=== PATIENT | female | born 1980 | race Caucasian/White ===

== ENCOUNTER 2018-12-22 20:49 | Inpatient (IN) | payer BC, OTHER ==
[~2018-12-22] VITALS: Ht 157.5 cm; Wt 90.0 kg
[2018-12-22] MEDS ORDERED: SING10TA32 PO (20:57)
[2018-12-22] MEDS ORDERED: HYDR50TA70 PO (20:57)
[2018-12-22] MEDS ORDERED: NS 1,000 ML IV ONE (22:00)
[2018-12-22 22:01] LABS: AMPHETAMINES LEVEL URINE NEGATIVE (NEGATIVE); BARBITURATES URINE NEGATIVE (NEGATIVE); BENZODIAZEPINES URINE NEGATIVE (NEGATIVE); CANNABINOIDS URINE NEGATIVE (NEGATIVE); COCAINE METABOLITE URINE NEGATIVE (NEGATIVE); METHADONE URINE NEGATIVE (NEGATIVE); OPIATES URINE NEGATIVE (NEGATIVE); PHENCYCLIDINE URINE NEGATIVE (NEGATIVE)
[2018-12-22 22:05] LABS: BASO # 0.1 10^3/uL (0.0-0.2); BASO % 0.5 % (0.0-1.0); EOS # 0.7 10^3/uL (0.0-0.50); EOS % 4.4 % (0.0-3.0); HEMOGLOBIN 13.8 g/dl (12.0-15.5); LYMPH # 3.8 10^3/uL (1.5-4.5); LYMPH % 25.5 % (24.0-44.0); MEAN CORPUSCULAR HEMOGLOBIN 29.9 pg (27.0-33.0); MEAN CORPUSCULAR HGB CONC 33.7 g/dl (32.0-36.5); MEAN CORPUSCULAR VOLUME 88.9 fl (80.0-96.0); MONO # 0.7 10^3/uL (0.0-0.8); MONO % 4.5 % (0.0-5.0); NEUTROPHILS # 9.6 10^3/uL (1.8-7.7); NEUTROPHILS % 64.4 % (36.0-66.0); PLATELET COUNT, AUTOMATED 406 10^3/uL (150-450); RED BLOOD COUNT 4.61 10^6/uL (4.00-5.40); WHITE BLOOD COUNT 14.9 10^3/uL (4.0-10.0)
[2018-12-22 22:31] LABS: HCG, SERUM QUALITATIVE NEGATIVE (NEGATIVE)
[2018-12-22 22:43] LABS: OSMOLALITY SERUM 287 MOSM/KG (275-295)
[2018-12-22 22:44] LABS: ACETAMINOPHEN LEVEL < 2.0 UG/ML (10.0-30.0); ALBUMIN 3.9 GM/DL (3.2-5.2); ALT/SGPT 29 U/L (12-78); BILIRUBIN,DIRECT < 0.1 MG/DL (0.0-0.2); BILIRUBIN,TOTAL 0.2 MG/DL (0.2-1.0); BLOOD UREA NITROGEN 9 MG/DL (7-18); CALCIUM LEVEL 8.8 MG/DL (8.5-10.1); CARBON DIOXIDE LEVEL 25 MEQ/L (21-32); CHLORIDE LEVEL 107 MEQ/L (98-107); CPK CREATINE PHOSPHOKINASE 53 U/L (26-192); ETHYL ALCOHOL (ETHANOL) < 0.003 % (0.000-0.010); GLOMERULAR FILTRATION RATE > 60.0 (>60); GLUCOSE, FASTING 140 MG/DL (70-100); POTASSIUM SERUM 3.6 MEQ/L (3.5-5.1); SODIUM LEVEL 140 MEQ/L (136-145); TOTAL PROTEIN 7.5 GM/DL (6.4-8.2)
--- NOTE | 2018-12-23 01:45 | ECGEPIP ---
Stationary ECG Study [facility] - ED Test Date: 2018-12-22 Pat Name: LIBAN PERDOMO Department: Room: - Gender: F Commissions Manager: trung : 1980 Requested By: Italo Glaser Order Number: [id number] Reading MD: Italo Solares Measurements Intervals [place] Rate: 103 P: 43 ME: 143 QRS: 32 QRSD: 90 T: 14 QT: 335 QTc: 441 Interpretive Statements SINUS TACHYCARDIA NO PRIORS FOR COMPARISON Electronically Signed On 12-23-2018 1:45:25 EDT by Italo Solares
--- NOTE | 2018-12-23 08:17 | REP ---
Portable chest: Single view. History: Drug overdose. Comparison study: No comparison study. Findings: EKG monitoring electrodes overlie the chest. Lungs are well inflated and clear. Pleural angles are sharp. Cardiomediastinal silhouette is unremarkable. Pulmonary vasculature is not increased. No bony abnormalities appreciated. Impression: Negative portable chest x-ray. Electronically Signed by Ras Bueno MD 12/23/2018 08:08 A
[2018-12-23] MEDS ORDERED: MONTELUKAST 10 MG TAB PO SCH (09:00)
[2018-12-23] MEDS ORDERED: HYDR-3363 PO (09:11)
[2018-12-23] MEDS ORDERED: PROAAER10 INH (09:11)
[2018-12-23] MEDS ORDERED: ALBUTEROL 90 MCG/ACT 8GM HFA INHALER INH SCH (14:30)
[2018-12-23] MEDS ORDERED: MOM 30ML SUSPENSION UDC PO PRN (14:30)
[2018-12-23] MEDS ORDERED: ACETAMINOPHEN TAB 650MG DOSE (2X325MG) PO PRN (14:30)
[2018-12-23] MEDS ORDERED: MAALOX 30 ML SUSP *UDC PO PRN (14:30)
[2018-12-23 15:54] VITALS: BP 132/82
[2018-12-23] MEDS ORDERED: hydrOXYzine 50 MG TAB PO SCH (21:00)
[2018-12-23] MEDS: MONTELUKAST 10 MG TAB PO SCH (21:36)
[2018-12-24 06:39] VITALS: BP 111/60
[2018-12-24 08:56] VITALS: BP 111/60
[2018-12-24] MEDS: NICOTINE 14 MG/24 HR TRANSDERMAL TD SCH (09:01)
--- NOTE | 2018-12-24 11:59 | HPEPDOC ---
General Date of Admission Dec 23, 2018 at 14:26 Chief Complaint The patient is a 38-year-old female who presented to the ER after she attempted to harm herself by steaming handful of hydroxyzine. History of Present Illness Patient is 38-year-old female with a PMHx of seasonal allergies and in somnia who presented to the emergency room after she attempted to harm herself by consuming a handful of hydroxyzine at an attempt of overdose. Hospitalist service was called for medical management / screening. Currently patient denies any headache, nausea, vomiting, abdominal pain, constipation, diarrhea or discomfort with urination. She denies any chest pain, shortness of breath, palpitations or cough. Patient reports that she has not experienced fever or chills in the last 2 weeks. Patient reports her weight has been relatively consistent and reports her appetite is normal. Home Medications Scheduled Hydroxyzine HCl (Hydroxyzine HCl) 25 Mg Tablet, 50 MG PO QHS for sleeping, (Reported) Montelukast Sodium (Singulair) 10 Mg Tablet, 10 MG PO QHS for allergies, (Reported) Scheduled PRN Albuterol Sulfate (Proair Hfa) 8.5 Gm Hfa.aer.ad, 2 PUFF INH Q6H PRN for SHORTNESS OF BREATH, (Reported) Allergies Coded Allergies: No Known Allergies (Unverified , 12/22/18) Past Medical History Medical History Seasonal allergies, Insomnia Surgical History 2 Dilation and curettage Tube ligation Cholecystectomy Tube placed and tympanic membrane at right ear 2 Family History - Mother and father without any reported medical history Social History - Denies the use of illicit drugs; smoker of 2024 years at less than 0.25 PPD; drinks alcohol proximally 3-4 beers / mixed drinks per week - Denies recent travel or sick contacts - Lives with family in [place] - 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; 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 [employer] Review of Systems Other systems 10 point review systems complete, all negative otherwise stated in HPI Vital Signs - Vitals: BP 11/60, HR 67, RR 16, Sat 95%RA, Temp 99.9F - General: Lying in bed, No acute distress, Speaking in full sentences, AAOx3 - HEENT: NC, AT, PERRLA, EOMI - CVS: RRR, +S1S2, - Murmurs / rubs / gallops - Lungs: Fair air entry bilaterally, Clear to auscultation - Abdomen: Soft, Non-distended, Non-tender - Extremities: No lower extremity edema, No calf tenderness - Neuro: No focal motor or sensory deficit - Skin: No visible rashes Laboratory Data Microbiology Microbiology 12/22/18 Urine Culture - Final, Complete Plan / VTE VTE Prophylaxis Ordered?: Yes Plan Plan Suicidal attempt after having a stressor event - Currently being managed by psychiatry Seasonal allergies - c/w Singulair Insomnia - Patient has been resumed on hydroxyzine by psychiatry Active smoker - Advised smoking cessation - c/w Nicotine patch DVT prophylaxis - c/w early ambulation Does not appear to have any acute medical issues that require urgent attention; Please reconsult as needed Female nursing staff was present during history and physical exam BRENDA HOLM MD Dec 24, 2018 11:59
--- NOTE | 2018-12-24 13:21 | MHHPEPDOC ---
General Date Of Admission: Dec 23, 2018 Legal Status: 9.39 Chief Complaint "I took pills to kill myself." History of Present Illness HISTORY OF THE PRESENT ILLNESS: Patient is a 38 -year-old , female, with no previous psychiatric history who presented to ED after driving herself stating she took a "few handfuls" or hydroxyzine 50mg but believes she only really swallowed 2 pills then vomited as a suicide attempt due to feeling depressed and overwhelmed since her and she after he told her he wanted a divorce a few days ago which she doesn't want per the ED. Pt stated she regretted the OD in the ED but at the time she was feeling suicidal. Stated in the ED that she had been staying with friends since her told her he wanted a divorce and her kids had been staying with her parents but on the day of OD she picked them up and brought them home to her which she stated caused her to have a "breakdown" and OD as a suicide attempt. She denied SI/HI, hallucinations, delusions in the ED. Psychiatric Review of Systems Depression (2 or more weeks): depressed mood, feelings of worthlesness, diffi culty concentrating, suicidal thoughts [place] (4 or more days of): denies Psychosis: denies PTSD: denies Anxiety: situational anxiety, stressor related anxiety Anxiety/ 6 months or more of: difficulty concentrating Past Psychiatric History Previous Psychiatric Diagnosis: denies Previous Psychiatric Admissions: denies Suicide Attempts: OD on 2 hydroxyzine 50mg and then vomited this admission, only time in Hx Psychiatric Follow-up: denies Psychiatric medications: denies Past Medical History Medical Problems denies Head Injury: No Seizures: No Hospitalizations: No Surgeries: No Family Medical/Psychiatric HX Medical Problems noncontributory Psychiatric Disorders: No Addiction: No Suicide Attemps/Completions: No Addiction History denies Social History Childhood: born and raised [facility]. 2 parent home, 2 younger brothers, good childhood, close family Abuse/Trauma:no Current Living Situation: has been staying with friends after asked for divorce. is in their home. 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 [employer] Social Support: parents, friends Legal: denies Marital: but just asked for divorce a few days ago, 2 daughters 12, 13 Mental Status Examination General Appearance: well groomed, appears stated age, hospital scubs/clothing Build: overweight Demeanor: average Eye Contact: average Activity: average Behavior: cooperative Speech: clear, spontaneous, reg/rate,rhythm,volume Mood: depressed, anxious Mood overwhelmed Affect: appropriate, congruent, anxious Thought Process: logical/linear, intact Thought Content (Delusions): none reported, denies SI, HI, AVH Thought Content (Other): none reported, appropriate Thought Content (Aggressive): none reported Perception (Hallucinations): none reported Perception (Other): none reported Cognition (Impairment of): none reported Cognition(Intelligence Est.): average Oriented: Awake, Alert, Oriented times three Insight: fair Judgment: Fair Psychosis: Denies Diagnoses Unspecified Depression R/O Adjustment D/O with depression and anxiety A-FIB/CHADSVASC A-FIB History Current/History of A-Fib/PAF?: No Current Oral Anticoagulant The: No Treatment Treatment ordered: NONE Reason Anticoagulant not given: Not indicated/Cmrbd6ohil Assessment Pt seen and states she's here b/c "I think I had a nervous breakdown." States she just overwhelmed with everything going on. States her asked for a divorce a few days ago after she cheated on him 5 days ago due to the marriage no doing well and feeling like she wasn't getting enough attention. She states she still wants her marriage to work out and has asked her about them attending marital counseling and he told her no. States she would like counseling for herself once d/c. States she regrets her OD as "it was the lowest I've very been in my life." States she feels better today. States she has a lot still ahead of her to do in the future, her kids/dogs/family which is why she's glad she wasn't successful. Feels this is a learning lesson. States her PCP, Dr. Bond prescribed her the hydroxyzine for insomnia. States she believes she may have taken lexapro in the past but is not sure if it was helpful and agreeable to starting again for mood/anxiety. Recommended benadryl prn anxiety as OD'ed on hydroxyzine. Risks/benefits discussed. Denies SI/HI, hallucinations, delusions. Feels safe here. Initial Treatment Plan 1. Patient was admitted on a 9.39 status. 2. Complete history was obtained. 3. With patients permission, family will be contacted and database will be expanded. 4. Patients medication regimen will be reviewed and changed accordingly. 5. Patient will be provided with protected environment. 6. Patient will be treated with individual, group, and milieu therapies. 7. Patient will receive supportive psych-education. 8. Discharge planning will commence immediately. 9. Outpatient follow-up treatment will be strongly recommended. 10. The initial treatment plan will focus initially on: * Depression. * Risk for suicide. * Substance abuse. 11. lexapro 10mg daily and benadryl 25mg q6hr prn anxiety, d/c hydroxyzine ESTIMATED LENGTH OF STAY: 5-7 DAYS. TIME SPENT COUNSELING AND COORDINATING INITIAL CARE: 60 minutes. Vital Signs Vital Signs Date Time Temp Pulse Resp B/P (MAP) Pulse Ox O2 Delivery O2 Flow Rate FiO2 12/24/18 08:56 99.9 67 16 111/60 95 12/24/18 08:56 Room Air Medications Scheduled Hydroxyzine HCl (Hydroxyzine HCl) 25 Mg Tablet, 50 MG PO QHS for sleeping, (Reported) Montelukast Sodium (Singulair) 10 Mg Tablet, 10 MG PO QHS for allergies, (Reported) Scheduled PRN Albuterol Sulfate (Proair Hfa) 8.5 Gm Hfa.aer.ad, 2 PUFF INH Q6H PRN for SHORTNESS OF BREATH, (Reported) Allergies Coded Allergies: No Known Allergies (Unverified , 12/22/18) PORSCHE JAMIL DO Dec 24, 2018 13:21
[2018-12-24] MEDS ORDERED: ESCITALOPRAM OXALATE 10 MG TAB (LEXAPRO) PO ONE (13:30)
[2018-12-24] MEDS ORDERED: diphenhydrAMINE 25 MG CAP PO PRN (13:30)
[2018-12-24 18:00] VITALS: BP 134/83
[2018-12-24] MEDS: traZODone 50 MG TAB PO PRN (21:40)
[2018-12-24] MEDS: MONTELUKAST 10 MG TAB PO SCH (21:40)
[2018-12-25 07:12] VITALS: BP 116/58
[2018-12-25] MEDS: ESCITALOPRAM OXALATE 10 MG TAB (LEXAPRO) PO SCH (09:03)
[2018-12-25] MEDS: NICOTINE 14 MG/24 HR TRANSDERMAL TD SCH (09:03)
--- NOTE | 2018-12-25 11:08 | MHIPNPDOC ---
[facility] Progress Note Progress Note DATE OF SERVICE: 12/25/18 HISTORY: Patient is a 38 -year-old , female, with no previous psychiatric history who presented to ED after driving herself stating she took a "few handfuls" or hydroxyzine 50mg but believes she only really swallowed 2 pills then vomited as a suicide attempt due to feeling depressed and overwhelmed since her and she after he told her he wanted a divorce a few days ago which she doesn't want per the ED. Pt stated she regretted the OD in the ED but at the time she was feeling suicidal. Stated in the ED that she had been staying with friends since her told her he wanted a divorce and her kids had been staying with her parents but on the day of OD she picked them up and brought them home to her which she stated caused her to have a "breakdown" and OD as a suicide attempt. She denied SI/HI, hallucinations, delusions in the ED. VITAL SIGNS: See below. NEW TEST RESULTS: See below. CURRENT MEDICATIONS: See below. MENTAL STATUS EXAMINATION: General Appearance: well groomed, appears stated age, hospital scubs/clothing Build: overweight Demeanor: average Eye Contact: average Activity: average Behavior: cooperative Speech: clear, spontaneous, reg/rate,rhythm,volume Mood: less depressed, anxious Mood "better" Affect: appropriate, congruent, less anxious Thought Process: logical/linear, intact Thought Content (Delusions): none reported, denies SI, HI, AVH Thought Content (Other): none reported, appropriate Thought Content (Aggressive): none reported Perception (Hallucinations): none reported Perception (Other): none reported Cognition (Impairment of): none reported Cognition(Intelligence Est.): average Oriented: Awake, Alert, Oriented times three Insight: fair Judgment: Fair Psychosis: Denies DIAGNOSES: Unspecified Depression R/O Adjustment D/O with depression and anxiety ASSESSMENT:Pt seen and states doing "ok" today and slept well last night. Is rested today. States she's tolerating her medication well and feels it's beneficial. Is attending groups and socializing in the milieu which she finds helpful and enjoys. Denies SI/HI, hallucinations, delusions. Feels safe here. MANAGEMENT PLAN: continue plan. Medications: lexapro 10mg daily benadryl 25mg q6hr prn anxiety trazodone 50mg qhs prn insomnia TIME SPENT: 30 minutes. Vital Signs Vital Signs Date Time Temp Pulse Resp B/P (MAP) Pulse Ox O2 Delivery O2 Flow Rate FiO2 12/25/18 07:12 98.2 71 16 116/58 (77) 12/24/18 08:56 95 12/24/18 08:56 Room Air Current Medications Current Medications Acetaminophen (Tylenol Tab) 650 mg Q6HP PRN PO PAIN; Start 12/23/18 at 14:30 Al Hydrox/Mg Hydrox/Simethicone (Mylanta) 30 ml Q4HP PRN PO INDIGESTION; Start 12/23/18 at 14:30 Albuterol Sulfate (Proventil, Ventolin Hfa) 2 puff Q6HP INH ; Start 12/23/18 at 14:30 Diphenhydramine HCl (Benadryl) 25 mg Q6HP PRN PO ANXIETY/AGITATION; Start 12/24/18 at 13:30 Escitalopram Oxalate (Lexapro) 10 mg DAILY PO Last administered on 12/25/18at 09:03; Start 12/25/18 at 09:00 Home Med (Med Rec Complete!) ASDIRECTED XX ; Start 12/23/18 at 09:15; Stop 12/23/18 at 09:15; Status DC Hydroxyzine HCl (Atarax) 50 mg QHS PO Last administered on 12/23/18at 21:36; Start 12/23/18 at 21:00; Stop 12/24/18 at 13:26; Status DC Magnesium Hydroxide (Milk Of Magnesia) 30 ml DAILYPRN PRN PO CONSTIPATION; Start 12/23/18 at 14:30 Montelukast Sodium (Singulair) 10 mg DAILY PO Last administered on 12/23/18at 08:22; Start 12/23/18 at 09:00; Stop 12/23/18 at 15:54; Status DC Montelukast Sodium (Singulair) 10 mg QHS PO Last administered on 12/24/18at 21:40; Start 12/23/18 at 21:00 Nicotine (Nicoderm Cq 14mg) 1 patch DAILY TD Last administered on 12/25/18at 09:03; Start 12/24/18 at 09:00 Trazodone HCl (Desyrel) 50 mg QHSP PRN PO INSOMNIA Last administered on 12/02 12/19at 21:40; Start 12/24/18 at 13:30 Allergies Coded Allergies: No Known Allergies (Unverified , 12/22/18) PORSCHE JAMIL DO Dec 25, 2018 11:08 am
[2018-12-25 18:05] VITALS: BP 106/60
[2018-12-25] MEDS: MONTELUKAST 10 MG TAB PO SCH (21:19)
[2018-12-25] MEDS: traZODone 50 MG TAB PO PRN (22:42)
[2018-12-26 06:22] VITALS: BP 124/72
[2018-12-26] MEDS: ESCITALOPRAM OXALATE 10 MG TAB (LEXAPRO) PO SCH (08:51)
[2018-12-26] MEDS: NICOTINE 14 MG/24 HR TRANSDERMAL TD SCH (08:52)
--- NOTE | 2018-12-26 09:17 | MHDSPDOC ---
[facility] Discharge Summary Discharge Summary DATE OF ADMISSION: Dec 23, 2018 at 2:26 pm DATE OF DISCHARGE: December 26, 2018 DISCHARGE DIAGNOSES: Unspecified Depression R/O Adjustment D/O with depression and anxiety REASON FOR ADMISSION: Patient is a 38 -year-old , female, with no previous psychiatric history who presented to ED after driving herself stating she took a "few handfuls" or hydroxyzine 50mg but believes she only really swallowed 2 pills then vomited as a suicide attempt due to feeling depressed and overwhelmed since her and she after he told her he wanted a divorce a few days ago which she doesn't want per the ED. Pt stated she regretted the OD in the ED but at the time she was feeling suicidal. Stated in the ED that she had been staying with friends since her told her he wanted a divorce and her kids had been staying with her parents but on the day of OD she picked them up and brought them home to her which she stated caused her to have a "breakdown" and OD as a suicide attempt. She denied SI/HI, hallucinations, delusions in the ED. CONSULTANTS INVOLVED: none TREATMENT AND PROGRESS ON THE UNIT : Pt was admitted to [facility], seen for psychiatric assessment and started on lexapro 10mg daily for mood and anxiety. She was provided benadryl 25mg q6hr prn anxiety and trazodone 50mg qhs prn in somnia. Pt found her medications beneficial and tolerated them well. She attended groups daily during her stay. Her symptoms improved with treatment. On day of discharge she denied depression, anxiety, insomnia, SI/HI, hallucinations, delusions. She was discharged home after family meeting with her friend with follow-up at [facility]. She felt safe for discharge. DISCHARGE ASSESSMENT: Pt seen and states doing "good" today and slept well last night. States she's looking forward to going home today. States she's tolerating her medication well and feels it's beneficial. Is attending groups and socializing in the milieu which she finds helpful and enjoys. Denies depression, anxiety, insomnia, SI/HI, hallucinations, delusions. Feels safe to be discharged home. MENTAL STATUS EXAMINATION ON DISCHARGE: General Appearance: well groomed, appears stated age, hospital scrubs/clothing Build: overweight Demeanor: average Eye Contact: average Activity: average Behavior: cooperative Speech: clear, spontaneous, reg/rate,rhythm,volume Mood: euthymic, full "good" Affect: appropriate, congruent, euthymic, full Thought Process: logical/linear, intact Thought Content (Delusions): none reported, denies SI, HI, AVH Thought Content (Other): none reported, appropriate Thought Content (Aggressive): none reported Perception (Hallucinations): none reported Perception (Other): none reported Cognition (Impairment of): none reported Cognition(Intelligence Est.): average Oriented: Awake, Alert, Oriented times three Insight: good Judgment: good Psychosis: Denies MEDICATIONS ON DISCHARGE: lexapro 10mg daily benadryl 25mg q6hr prn anxiety trazodone 50mg qhs prn insomnia PLAN/FOLLOWUP ARRANGEMENTS: D/c home with follow-up at [facility]. The amount of time spent in the coordination of care for this patient was approximately 30 minutes. Vital Signs/I&Os Vital Signs Date Time Temp Pulse Resp B/P (MAP) Pulse Ox O2 Delivery O2 Flow Rate FiO2 12/26/18 06:22 99.7 63 18 124/72 (89) 12/24/18 08:56 95 12/24/18 08:56 Room Air Laboratory Data Microbiology Microbiology 12/22/18 Urine Culture - Final, Complete Medications Scheduled Hydroxyzine HCl (Hydroxyzine HCl) 25 Mg Tablet, 50 MG PO QHS for sleeping, (Reported) Montelukast Sodium (Singulair) 10 Mg Tablet, 10 MG PO QHS for allergies, (Reported) Scheduled PRN Albuterol Sulfate (Proair Hfa) 8.5 Gm Hfa.aer.ad, 2 PUFF INH Q6H PRN for SHORTNESS OF BREATH, (Reported) Allergies Coded Allergies: No Known Allergies (Unverified , 12/22/18) PORSCHE JAMIL DO Dec 26, 2018 9:17 am
[2018-12-26] MEDS ORDERED: ESCI10TA2 PO (09:19)
[2018-12-26] MEDS ORDERED: TRAZO50TA PO (09:19)
[2018-12-26] MEDS ORDERED: BENA25CA4 PO (09:19)
== END 2018-12-26 10:45 | disposition home or self-care (01) | DRG 754 ==
LOC: M ED 20:49 → M ED INP 12-23 14:26 → M PSY 12-23 15:35
PROVIDERS: ADMIT Psychiatry & Neurology Psychiatry; ATTEND Psychiatry & Neurology Psychiatry
DX: F32.9 Major depressive disorder, single episode, unspecified (principal); F43.21 Adjustment disorder with depressed mood; T43.592A Poisoning by other antipsychotics and neuroleptics, intentional self-harm, initial encounter; Y92.009 Unspecified place in unspecified non-institutional (private) residence as the place of occurrence of the external cause; Z63.5 Disruption of family by separation and divorce

== ENCOUNTER → 2020-10-22 | Outpatient (CLI) | payer BC ==
[~2020-10-22] MED LIST: BENA25CA4 PO; ESCI10TA16 PO; HYDR-3363 PO; HYDR50TA70 PO; PROAAER10 INH; SING10TA32 PO; TRAZ1TAB10 PO
== END ==
LOC: M LABSMTC 08:23
PROVIDERS: ATTEND Anesthesiology
DX: Z01.812 Encounter for preprocedural laboratory examination (principal); Z20.822 Contact with and (suspected) exposure to COVID-19

== ENCOUNTER 2020-10-27 06:04 | Day surgery (SDC) | payer BC ==
[~2020-10-27] VITALS: Ht 157.5 cm; Wt 92.2 kg
[~2020-10-27 06:04] MED LIST changes: +LIDOCAINE 1% MDV 20ML VIAL SQ PRN
--- OUTSIDE RECORDS SUMMARY | 2020-10-27 06:09 | CCD | Continuity of Care Document ---
Author Author Erika KINNEY MD Organization Unknown Address [address] [place] [id number] Phone [phone] Care Team Providers Care Remote Sensing Technician Name Role Phone Macario Bond [phone] Problems Active Problems Provider Date Gynecologic examination Jaelyn Alvarez WHNP Onset: 03/25/20 12 Obesity Jaelyn Alvarez WHNP Onset: 03/25/2012 Social History Type Date Description Comments Sex Unknown Tobacco Use Start: Unknown End: Unknown Former Cigarette Smo ker ETOH Use Occasionally consumes beer Recreational Drug Use Denies Drug Use Tobacco Use Start: Unknown End: Unknown Patient is a former smoker Smoking Status Reviewed: 08/10/20 Patient is a former smoker Allergies, Adverse Reactions, Alerts Description No Known Drug Allergies Medications Active Medications SIG Qnty Indications Ordering Provide r Date Singulair 10mg Tablets Unknown Hydroxyzine HCL 50mg Tablets one by mouth three times a day as needed Unknown 00 Immunizations Description No Information Available Vital Signs Date Vital Result Comment 08/10/2020 9:33am Weight 204.00 lb 03/22/2020 9:06am BP Systolic 134 mmHg BP Diastolic 82 mmHg Height 62 inches 5'2" Weight 213.00 lb BMI (Body Mass Index) 39.0 kg/m2 BSA (Body Surface Area) 1.96 m2 Results Test Acquired Date Facility Test Result H/L Range Note Laboratory test finding 03/22/2020 [facility] TP Reflex HPV ASCUS Normal Normal [address] CT By PCR 03/22/[address] [facility] [address]/NG Please see resul <SEE NOTE> Abnormal 2 TP Reflex HPV ASCUS SEE IMAGE 1 SPECIME N PART A. Cervical, Endocervical, ThinPrep Pap (Elementary Supervisor) CYTOLOGY HX-------- Date of Last Menstrual Period: 03/15/20 Other Information:Previous Normal Pap: 04/05/14 FINAL DIAGNOSIS---- INTERPRETATION: Negative for Intraepithelial Lesion or Malignancy. SPECIMEN ADEQUACY:Satisfactory for evaluation. Endocervical/transformation zone component is absent/insufficient. 2 Please see results/comment Unable to obtain a valid result. quality control tester measures indicate that this specimen contains an inhibitory substance, which prohibits accurate detection of organisms. Recommend submitting a new specimen for testing if clinically indicated. Testing performed by the FDA-approved APTIMA COMBO 2 method. Procedures Description No Information Available Medical Devices Description No Information Available Encounters Type Date Location Provider Dx Diagnosis Office Visit 03/22/2020 9:15a [facility] newspaper carrier Starr Kinney MD Z0 1.419 Encntr for dairy frozen manager exam (general) (routine) w/o abn findings Z12.4 Encounter for screening for malignant neoplasm of cervix Z12.39 Encounter for oth screening for malignant neoplasm of breast Z72.51 High risk heterosexual behav ior Z68.39 Body mass index (BMI) 39.0-3 9.9, adult Assessments Date Code Description Provider 03/22/2020 Z01.419 Encounter for gyneco logical examination (general) (routine) without abnormal findings Starr Kinney MD 03/22/2020 Z12.4 Encounter for screening for tita gnant neoplasm of cervix Starr Kinney MD 03/22/2020 Z12.39 Encounter for other screening for malignant neoplasm of breast Starr Kinney MD 03/22/2020 Z72.51 High risk heterosexual behavior Starr Kinney MD 03/22/2020 Z68.39 Body mass index (BMI) 39.0-39.9, adult Starr Kinney MD Plan of Treatment Future Appointment(s):* 09/29/2020 10:00 am - Starr Kinney MD at [facility] newspaper carrier * 03/31/2021 9:15 am - Starr Kinney MD at [facility] newspaper carrier Functional Status Description No Information Available Mental Status Description No Information Available Referrals Description No Information Available
--- OUTSIDE RECORDS SUMMARY | 2020-10-27 06:10 | CCD ---
Author Author [facility] Organization [facility] Address Unknown Phone Unavailable Care Team Providers Care Middleware Developer Name Role Phone of Karol, Medicine Occupation Unavailable Unavailable PARSHALL, A MARK SOTO Unavailable Unavailable PARSHALL, A MARK SOTO Unavailable Unavailable PARSHALL, A MARK SOTO Unavailable Unavailable PARSHALL, A MARK SOTO Unavailable Unavailable PARSHALL, A MARK SOTO Unavailable Unavailable PARSHALL, A MARK SOTO Unavailable Unavailable PARSHALL, A MARK SOTO Unavailable Unavailable PARSHALL, A MARK SOTO Unavailable Unavailable PARSHALL, A MARK SOTO Unavailable Unavailable PARSHALL, A MARK SOTO Unavailable Unavailable PARSHALL, A MARK SOTO Unavailable Unavailable PARSHALL, A MARK SOTO Unavailable Unavailable PARSHALL, A MARK SOTO Unavailable Unavailable PARSHALL, A MARK SOTO Unavailable Unavailable PARSHALL, A MARK SOTO Unavailable Unavailable PARSHALL, A MARK SOTO Unavailable Unavailable PARSHALL, A MARK SOTO Unavailable Unavailable PARSHALL, A MARK SOTO Unavailable Unavailable PARSHALL, A MARK SOTO Unavailable Unavailable PARSHALL, A MARK SOTO Unavailable Unavailable PARSHALL, A MARK SOTO Unavailable Unavailable PARSHALL, A MARK SOTO Unavailable Unavailable PARSHALL, A MARK SOTO Unavailable Unavailable PARSHALL, A MD Unavailable Unavailable PARSHALL, Maricruz FLORES MD Unavailable Unavailable PARSHALL, Maricruz FLORES MD Unavailable Unavailable PARSHALL, Maricruz FLORES MD Unavailable Unavailable PARSHALL, Maricruz FLORES MD Unavailable Unavailable Shambo, Macario Chairez MD Unavailable Unavailable Shambo, Macario Chairez MD Unavailable Unavailable Shambo, Macario Chairez MD Unavailable Unavailable Shambo, Macario Chairez MD Unavailable Unavailable Shambo, Macario Chairez MD Unavailable Unavailable Shambo, Macario Chairez MD Unavailable Unavailable Shambo, Macario Chairez MD Unavailable Unavailable Shambo, Macario Chairez MD Unavailable Unavailable Shambo, Macario Chairez MD Unavailable Unavailable Shambo, Macario Chairez MD Unavailable Unavailable Shambo, Macario Chairez MD Unavailable Unavailable Shambo, Macario Chairez MD Unavailable Unavailable Shambo, Macario Chairez MD Unavailable Unavailable Shambo, Macario Chairez MD Unavailable Unavailable Shambo, Macario Chairez MD Unavailable Unavailable Shambo, Macario Chairez MD Unavailable Unavailable Shambo, Macario Chairez MD Unavailable Unavailable Shambo, Macario Chairez MD Unavailable Unavailable Shambo, Macario Chairez MD Unavailable Unavailable Shambo, Macario Chairez MD Unavailable Unavailable Shambo, Macario Chairez MD Unavailable Unavailable Shambo, Macario Chairez MD Unavailable Unavailable Shambo, Macario Chairez MD Unavailable Unavailable Shambo, Macario Chairez MD Unavailable Unavailable Shambo, Macario Chairez MD Unavailable Unavailable Shambo, Macario Chairez MD Unavailable Unavailable Shambo, Macario Chairez MD Unavailable Unavailable Shambo, Macario Chairez MD Unavailable Unavailable Shambo, Macario Chairez MD Unavailable Unavailable Shambo, Macario Chairez MD Unavailable Unavailable Shambo, Macario Chairez MD Unavailable Unavailable Shambo, Macario Chairez MD Unavailable Unavailable Shambo, Macario Chairez MD Unavailable Unavailable Shambo, Macario Chairez MD Unavailable Unavailable Shambo, Macario Chairez MD Unavailable Unavailable Shambo, Macario Chairez MD Unavailable Unavailable Shambo, Macario Chairez MD Unavailable Unavailable Shambo, Macario Chairez MD Unavailable Unavailable Shambo, Macario Chairez MD Unavailable Unavailable Shambo, Macario Chairez MD Unavailable Unavailable Shambo, Macario Chairez MD Unavailable Unavailable Shambo, Macario Chairez MD Unavailable Unavailable Shambo, Macario Chairez MD Unavailable Unavailable Shambo, Macario Chairez MD Unavailable Unavailable Shambo, Macario Chairez MD Unavailable Unavailable Shambo, Macario Chairez MD Unavailable Unavailable Shambo, Macario Chairez MD Unavailable Unavailable Shambo, Macario Chairez MD Unavailable Unavailable Shambo, Macario Chairez MD Unavailable Unavailable Shambo, Macario Chairez MD Unavailable Unavailable Shambo, Macario Chairez MD Unavailable Unavailable Shambo, Macario Chairez MD Unavailable Unavailable Shambo, Macario Chairez MD Unavailable Unavailable Shambo, Macario Chairez MD Unavailable Unavailable Shambo, Macario Chairez MD Unavailable Unavailable Shambo, Macario Chairez MD Unavailable Unavailable Shambo, Macario Chairez MD Unavailable Unavailable Shambo, Macario Chairez MD Unavailable Unavailable Shambo, Macario Chairez MD Unavailable Unavailable Shambo, Macario Chairez MD Unavailable Unavailable Shambo, Macario Chairez MD Unavailable Unavailable Shambo, Macario Chairez MD Unavailable Unavailable Shambo, Macario Chairez MD Unavailable Unavailable Shambo, Macario Chairez MD Unavailable Unavailable Lewis, Rico PA Unavailable Unavailable Lewis, Rico PA Unavailable Unavailable Lewis, Rico PA Unavailable Unavailable Lewis, Rico PA Unavailable Unavailable Lewis, Rico PA Unavailable Unavailable Lewis, Rico PA Unavailable Unavailable Lewis, Rico PA Unavailable Unavailable Lewis, Rico PA Unavailable Unavailable Lewis, Irco PA Unavailable Unavailable Lewis, Rico PA Unavailable Unavailable Lewis, Rico PA Unavailable Unavailable Lewis, Rico PA Unavailable Unavailable Oscar De La Rosa MD Unavailable Unavailable Tad KINNEY MD Unavailable Unavailable Tad KINNEY MD Unavailable Unavailable Tad KINNEY MD Unavailable Unavailable Tad KINNEY MD Unavailable Unavailable Tad KINNEY MD Unavailable Unavailable Tad KINNEY MD Unavailable Unavailable Tad IKNNEY MD Unavailable Unavailable Tad KINNEY MD Unavailable Unavailable Tad KINNEY MD Unavailable Unavailable Tad KINNEY MD Unavailable Unavailable Tad KINNEY MD Unavailable Unavailable Tad KINNEY MD Unavailable Unavailable Tad KINNEY MD Unavailable Unavailable Tad KINNEY MD Unavailable Unavailable Tad KINNEY MD Unavailable Unavailable Tad KINNEY MD Unavailable Unavailable Tad KINNEY MD Unavailable Unavailable Tad KINNEY MD Unavailable Unavailable Tad KINNEY MD Unavailable Unavailable Tad KINNEY MD Unavailable Unavailable Tad KINNEY MD Unavailable Unavailable Tad KINNEY MD Unavailable Unavailable Tad KINNEY MD Unavailable Unavailable Tad KINNEY MD Unavailable Unavailable Tad KINNEY MD Unavailable Unavailable Tad KINNEYCI MD Unavailable Unavailable KINNEY, Tad ARANA MD Unavailable Unavailable KINNEY, L SUMIT SOTO Unavailable Unavailable KINNEY, L SUIMT SOTO Unavailable Unavailable KINNEY, L SUMIT SOTO Unavailable Unavailable KINNEY, L SUMIT SOTO Unavailable Unavailable KINNEY, L SUMIT SOTO Unavailable Unavailable KINNEY, L SUMIT SOTO Unavailable Unavailable KINNEY, L SUMIT SOTO Unavailable Unavailable KINNEY, L SUMIT SOTO Unavailable Unavailable KINNEY, L SUMIT SOTO Unavailable Unavailable KINNEY, L SUMIT SOTO Unavailable Unavailable KINNEY, L SUMIT SOTO Unavailable Unavailable KINNEY, L SUMIT SOTO Unavailable Unavailable KINNEY, L SUMIT SOTO Unavailable Unavailable KINNEY, L SUMIT SOTO Unavailable Unavailable KINNEY, L SUMIT SOTO Unavailable Unavailable KINNEY, Tad ARANA MD Unavailable Unavailable Naeem Smith Unavailable Unavailable Blaise Rachel MD Unavailable Unavailable Emanuel, H Zayra SCENE SHIFTER Unavailable Unavailable Emanuel, H Zayra SCENE SHIFTER Unavailable Unavailable Emanuel, H Zayra SCENE SHIFTER Unavailable Unavailable Emanuel, H Zayra SCENE SHIFTER Unavailable Unavailable Emanuel, H Zayra SCENE SHIFTER Unavailable Unavailable Emanuel, H Zayra SCENE SHIFTER Unavailable Unavailable Emanuel, H Zayra SCENE SHIFTER Unavailable Unavailable Emanuel, H Zayra SCENE SHIFTER Unavailable Unavailable Emanuel, H Zayra SCENE SHIFTER Unavailable Unavailable Emanuel, H Zayra SCENE SHIFTER Unavailable Unavailable Emanuel, H Zayra SCENE SHIFTER Unavailable Unavailable Emanuel, H Zayra SCENE SHIFTER Unavailable Unavailable Emanuel, H Zayra SCENE SHIFTER Unavailable Unavailable Emanuel, H Zayra SCENE SHIFTER Unavailable Unavailable Emanuel, H Zayra SCENE SHIFTER Unavailable Unavailable Emanuel, H Zayra SCENE SHIFTER Unavailable Unavailable Emanuel, H Zayra SCENE SHIFTER Unavailable Unavailable Emanuel, H Zayra SCENE SHIFTER Unavailable Unavailable Emanuel, H Zayra SCENE SHIFTER Unavailable Unavailable Emanuel, H Zayra SCENE SHIFTER Unavailable Unavailable Emanuel, H Zayra SCENE SHIFTER Unavailable Unavailable Emanuel, H Zayra SCENE SHIFTER Unavailable Unavailable Emanuel, H Zayra SCENE SHIFTER Unavailable Unavailable Emanuel, H Zayra SCENE SHIFTER Unavailable Unavailable Emanuel, H Zayra SCENE SHIFTER Unavailable Unavailable Emanuel, H Zayra SCENE SHIFTER Unavailable Unavailable Emanuel, H Zayra SCENE SHIFTER Unavailable Unavailable Emanuel, H Zayra SCENE SHIFTER Unavailable Unavailable Emanuel, H Zayra SCENE SHIFTER Unavailable Unavailable Emanuel, H Zayra SCENE SHIFTER Unavailable Unavailable Emanuel, H Zayra SCENE SHIFTER Unavailable Unavailable Emanuel, H Zayra SCENE SHIFTER Unavailable Unavailable Emanuel, H Zayra SCENE SHIFTER Unavailable Unavailable Emanuel, H Zayra SCENE SHIFTER Unavailable Unavailable Emanuel, H Zayra SCENE SHIFTER Unavailable Unavailable Emanuel, H Zayra SCENE SHIFTER Unavailable Unavailable Emanuel, H Zayra SCENE SHIFTER Unavailable Unavailable Emanuel, H Zayra SCENE SHIFTER Unavailable Unavailable Emanuel, H Zayra SCENE SHIFTER Unavailable Unavailable Emanuel, H Zayra SCENE SHIFTER Unavailable Unavailable Emanuel, H Zayra SCENE SHIFTER Unavailable Unavailable Emanuel, H Zayra SCENE SHIFTER Unavailable Unavailable Emanuel, H Zayra SCENE SHIFTER Unavailable Unavailable Emanuel, H Zayra SCENE SHIFTER Unavailable Unavailable Emanuel, H Zayra SCENE SHIFTER Unavailable Unavailable Emanuel, H Zayra SCENE SHIFTER Unavailable Unavailable Emanuel, H Zayra SCENE SHIFTER Unavailable Unavailable Emanuel, H Zayra SCENE SHIFTER Unavailable Unavailable Emanuel, H Zayra SCENE SHIFTER Unavailable Unavailable Emanuel, H Zayra SCENE SHIFTER Unavailable Unavailable Emanuel, H Zayra SCENE SHIFTER Unavailable Unavailable Emanuel, H Zayra SCENE SHIFTER Unavailable Unavailable Emanuel, H Zayra SCENE SHIFTER Unavailable Unavailable Emanuel, H Zayra SCENE SHIFTER Unavailable Unavailable Emanuel, H Zayra SCENE SHIFTER Unavailable Unavailable Emanuel, H Zayra SCENE SHIFTER Unavailable Unavailable Emanuel, H Zayra SCENE SHIFTER Unavailable Unavailable Palmowski, T Babs PA Unavailable Unavailable Palmowski, T Babs PA Unavailable Unavailable Palmowski, T Babs PA Unavailable Unavailable Palmowski, T Babs PA Unavailable Unavailable Palmowski, T Babs PA Unavailable Unavailable Palmowski, T Babs PA Unavailable Unavailable Palmowski, T Babs PA Unavailable Unavailable Palmowski, T Babs PA Unavailable Unavailable Palmowski, T Babs PA Unavailable Unavailable Palmowski, T Babs PA Unavailable Unavailable Palmowski, T Babs PA Unavailable Unavailable Palmowski, T Babs PA Unavailable Unavailable Palmowski, T Babs PA Unavailable Unavailable Palmowski, T Babs PA Unavailable Unavailable Palmowski, T Babs PA Unavailable Unavailable Palmowski, T Babs PA Unavailable Unavailable Palmowski, T Babs PA Unavailable Unavailable Palmowski, T Babs PA Unavailable Unavailable Palmowski, T Babs PA Unavailable Unavailable Palmowski, T Babs PA Unavailable Unavailable Palmowski, T Babs PA Unavailable Unavailable Bianca Reyna MD Unavailable Unavailable Bianca Reyna MD Unavailable Unavailable Bianca Reyna MD Unavailable Unavailable Bianca Reyna MD Unavailable Unavailable Bianca Reyna MD Unavailable Unavailable Bianca Reyna MD Unavailable Unavailable Bianca Reyna MD Unavailable Unavailable Bianca Reyna MD Unavailable Unavailable Bianca Reyna MD Unavailable Unavailable Bianca Reyna MD Unavailable Unavailable Bianca Reyna MD Unavailable Unavailable Bianca Reyna MD Unavailable Unavailable Bianca Reyna MD Unavailable Unavailable Bianca Reyna MD Unavailable Unavailable Bianca Reyna MD Unavailable Unavailable Bianca Reyna MD Unavailable Unavailable Reyna, E Lisa MD Unavailable Unavailable Reyna, E Lisa MD Unavailable Unavailable Reyna, E Lisa MD Unavailable Unavailable Reyna, E Lisa MD Unavailable Unavailable Reyna, E Lisa MD Unavailable Unavailable Reyna, E Lisa MD Unavailable Unavailable Reyna, E Lisa MD Unavailable Unavailable Reyna, E Lisa MD Unavailable Unavailable Reyna, E Lisa MD Unavailable Unavailable Reyna, E Lisa MD Unavailable Unavailable Reyna, E Lisa MD Unavailable Unavailable Reyna, E Lisa MD Unavailable Unavailable Reyna, E Lisa MD Unavailable Unavailable Reyna, E Lisa MD Unavailable Unavailable Reyna, E Lisa MD Unavailable Unavailable Reyna, E Lisa MD Unavailable Unavailable Reyna, E Lisa MD Unavailable Unavailable Reyna, E Lisa MD Unavailable Unavailable Reyna, E Lisa MD Unavailable Unavailable Ryena, E Lisa MD Unavailable Unavailable Reyna, E Lisa MD Unavailable Unavailable Reyna, E Lisa MD Unavailable Unavailable Reyna, E Lisa MD Unavailable Unavailable Reyna, E Lisa MD Unavailable Unavailable Re-disclosure Warning The records that you are about to access may contain information from federally-assisted alcohol or drug abuse programs. If such information is present, then the following federally mandated warning applies: This information has been disclosed to you from records protected by federal confidentiality rules (42 CFR part 2). The federal rules prohibit you from making any further disclosure of this information unless further disclosure is expressly permitted by the written consent of the person to whom it pertains or as otherwise permitted by 42 CFR part 2. A general authorization for the release of medical or other information is NOT sufficient for this purpose. The Federal rules restrict any use of the information to criminally investigate or prosecute any alcohol or drug abuse patient.The records that you are about to access may contain highly sensitive health information, the redisclosure of which is protected by Article 27-F of the [facility] Public Health law. If you continue you may have access to information: Regarding HIV / AIDS; Provided by facilities licensed or operated by the [facility] Office of Mental Health; or Provided by the [facility] Office for People With Developmental Disabilities. If such information is present, then the following [facility] mandated warning applies: This information has been disclosed to you from confidential records which are protected by state law. State law prohibits you from making any further disclosure of this information without the specific written consent of the person to whom it pertains, or as otherwise permitted by law. Any unauthorized further disclosure in violation of state law may result in a fine or intermediate sentence or both. A general authorization for the release of medical or other information is NOT sufficient authorization for further disc losure. Allergies and Adverse Reactions Type Description Substance Reaction Status Data Source(s ) Drug allergy doxycycline doxycycline nausea [place] [facility] Family History Family Member Name Family Member Gender Family Member Status Date o f Status Description Data Source(s) Unknown Condition [facility] Unknown [facility] Unknown Condition [facility] Unknown Condition [facility] Unknown Condition [facility] Unknown Condition [facility] Unknown [facility] Condition [facility] Condition [facility] Unknown Condition [facility] Unknown Condition [facility] Unknown Condition [facility] Unknown Condition [facility] Unknown Condition [facility] Unknown Condition [facility] Unknown Condition [facility] Encounters Encounter Providers Location Date Indications Data Source(s ) Outpatient Attender: Lisa Reyna MD 08/19/2020 09:30:00 AM [facility] Outpatient Attender: Lisa Reyna MD 07/26/2020 03:38:00 PM [facility] Outpatient Attender: Lisa Reyna MD 06/28/2020 10:00:00 AM EDT [facility] Outpatient Attender: Occupation of Karol 04/01/2020 12:00:0 0 AM EDT [facility]/PPD [facility] GRACE/PPD Outpatient Attender: SUMIT KINNEY MD [facility] 09:15:00 AM EDT 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) Outpatient Attender: Contreras GRIFFINeferrer: Contreras Bodn MD 11/06/2019 08:39:00 AM EST - 11/06/2019 08:56:00 AM [facility] Outpatient Attender: Contreras GRIFFINeferrer: Contreras Bond MD 11/03/2019 09:39:00 AM [facility] l Emergency Attender: Oscar eD La Rosa MD Attender: MARK BUCKLEY MDConsultant: Rico MUHAMMAD 11/01/2019 05:56:00 PM EST - 11/01/2019 09:45:00 PM EST DIZZY, FAINT FEELING [facility] DIZZY, FAINT FEELING Patient discharged. Emergency Attender: MARK BUCKLEY MD 10/28 10:36:00 AM EST - 10/28/2019 02:25:00 PM EST COUGH,VOMITING [facility] l COUGH,VOMITING Patient discharged. Emergency Attender: MARK BUCKLEY MD 10/26 11:14:00 AM EST - 10/26/2019 04:14:00 PM EST CHEST TIGHTNESS,LIGHT HEADED [facility] CHEST TIGHTNESS,LIGHT HEADED Patient discharged. Outpatient Attender: Contreras GRIFFINeferrer: Contreras Bond MD 10/23/2019 08:51:00 AM EST [facility] l Outpatient Attender: Babs MUHAMMAD 10/20/2019 06:3 7:00 PM EST COUGH [facility] COUGH Outpatient Attender: Babs Denney PAReferrer: Contreras martinez MD 10/20/2019 05:58:00 PM EST - 10/20/2019 06:35:00 PM EST [facility] Outpatient Attender: Zayra Longerrines: Contreras Bond MD 10/14/2019 03:41:00 PM EST [facility] l Emergency Attender: Naeem Smith PAAttender: Toni Rachel MD 10/09/2019 04:05:00 PM EST - 10/09/2019 06:37:00 PM EST COUGH [facility] COUGH Patient discharged. Outpatient Attender: Contreras GRIFFINeferrer: Contreras Bond MD 10/05/2019 04:54:00 PM EST - 10/05/2019 05:41:00 PM EST [facility] Medications Medication Brand Name Start Date Product Form Dose Route Admi nistrative Instructions Pharmacy Instructions Status Indications Reaction Description Data Source(s) 50 mg 09/09/2020 12:00:00 AM EST tablet 60 TAKE ONE TABLET BY MOUTH TWICE A DAY NEEDED FOR WHEEZING TAKE ONE TABLET BY MOUTH TWICE A DAY NEEDED FOR WHEEZING SOLD: 09/13/2020 [facility] 875 mg 07/13/2020 12:00:00 AM EST tablet 14 TAKE ONE TABLET BY MOUTH EVERY 12 HOURS FOR 7 DAYS TAKE ONE TABLET BY MOUTH EVERY 12 HOURS FOR 7 DAYS [facility] 50 mg 05/07/2020 12:00:00 AM EDT tablet 45 TAKE 1 TO 1 & 1/2 TABLETS BY MOUTH EVERY EVENING AT BEDTIME NEEDED FOR SLEEP TAKE 1 TO 1 & 1/2 TABLETS BY MOUTH EVERY EVENING AT BEDTIME NEEDED FOR SLEEP SOLD: 07/31/2020 [facility] 50 mg 05/07/2020 12:00:00 AM EDT tablet 45 TAKE 1 TO 1 & 1/2 TABLETS BY MOUTH EVERY EVENING AT BEDTIME NEEDED FOR SLEEP TAKE 1 TO 1 & 1/2 TABLETS BY MOUTH EVERY EVENING AT BEDTIME NEEDED FOR SLEEP SOLD: 06/17/2020 [facility] 50 mg 05/07/2020 12:00:00 AM EDT tablet 45 TAKE 1 TO 1 & 1/2 TABLETS BY MOUTH EVERY EVENING AT BEDTIME NEEDED FOR SLEEP TAKE 1 TO 1 & 1/2 TABLETS BY MOUTH EVERY EVENING AT BEDTIME NEEDED FOR SLEEP SOLD: 05/07/2020 [facility] Escitalopram 10 MG Oral Tablet ESCITALOPRAM OXALATE 04/11/2020 1 2:00:00 AM EDT tablet 30 TAKE ONE TABLET BY MOUTH EVERY D AY TAKE ONE TABLET BY MOUTH EVERY DAY SOLD: 04/11/2020 [facility] 50 mg 01/29/2020 12:00:00 AM EDT tablet 45 TAKE 1 AND 1/2 TABLETS BY MOUTH AT BEDTIME NEEDED FOR SLEEP TAKE 1 AND 1/2 TABLETS BY MOUTH AT BEDTI ME NEEDED FOR SLEEP SOLD: 03/24/2020 [facility] Escitalopram 10 MG Oral Tablet ESCITALOPRAM OXALATE 01/29/2020 1 2:00:00 AM EDT tablet 30 TAKE ONE TABLET BY MOUTH EVERY D AY TAKE ONE TABLET BY MOUTH EVERY DAY SOLD: 02/05/2020 [facility] 50 mg 01/29/2020 12:00:00 AM EDT tablet 45 TAKE 1 AND 1/2 TABLETS BY MOUTH AT BEDTIME NEEDED FOR SLEEP TAKE 1 AND 1/2 TABLETS BY MOUTH AT BEDTI ME NEEDED FOR SLEEP SOLD: 02/05/2020 [facility] 50 mg 12/25/2019 12:00:00 AM EDT tablet 45 TAKE 1 &1/2 TABLETS BY MOUTH EVERY EVENING AT BEDTIME NEEDED FOR SLEEP TAKE 1 &1/2 TABLETS BY MOUTH EVERY EVENING AT BEDTIME NEEDED FOR SLEEP SOLD: 12/29/2019 [facility] 14 ACTUAT fluticasone furoate 0.1 MG/ACTUAT Dry Powder Inhaler [Arnuity] Arnuity Ellipta 11/13/2019 12:00:00 AM EDT RESPIRATORY active [facility] ([facility], ) Prednisone 20 MG Oral Tablet Prednisone 11/03/2019 10:44:38 AM EST 40 MG active [facility] Prednisone 20 MG Oral Tablet Prednisone 11/03/2019 10:44:38 AM EST 40 MG active [facility] Amoxicillin 875 MG / Clavulanate 125 MG Oral Tablet Am oxicillin-Pot Clavulanate Amoxicillin-Pot Clavulanate 11/03/2019 10:43:43 AM EST 1 TAB active [facility] Amoxicillin 875 MG / Clavulanate 125 MG Oral Tablet Am oxicillin-Pot Clavulanate Amoxicillin-Pot Clavulanate 11/03/2019 10:43:43 AM EST 1 TAB active [facility] Escitalopram 10 MG Oral Tablet ESCITALOPRAM OXALATE 11/02/2019 1 2:00:00 AM EST tablet 30 TAKE ONE TABLET BY MOUTH EVERY D AY TAKE ONE TABLET BY MOUTH EVERY DAY SOLD: 11/05/2019 [facility] 50 mg 10/30/2019 12:00:00 AM EST tablet 30 TAKE UP TO ONE TABLET BY MOUTH AT BEDTIME NEEDED FOR INSOMNIA TAKE UP TO ONE TABLET BY MOUTH AT BEDTIM E NEEDED FOR INSOMNIA SOLD: 11/30/2019 [facility] 50 mg 10/30/2019 12:00:00 AM EST tablet 30 TAKE UP TO ONE TABLET BY MOUTH AT BEDTIME NEEDED FOR INSOMNIA TAKE UP TO ONE TABLET BY MOUTH AT BEDTIM E NEEDED FOR INSOMNIA SOLD: 11/01/2019 [facility] Codeine Phosphate 2 MG/ML / Guaifenesin 20 MG/ML Oral Solution Codeine-Guaifenesin Codeine-Guaifenesin 10/28/2019 02:07:18 PM EST 5 ML active [facility] Codeine Phosphate 2 MG/ML / Guaifenesin 20 MG/ML Oral Solution Codeine-Guaifenesin Codeine-Guaifenesin 10/28/2019 02:07:18 PM EST 5 ML completed [facility] Codeine Phosphate 2 MG/ML / Guaifenesin 20 MG/ML Oral Solution Codeine-Guaifenesin Codeine-Guaifenesin 10/28/2019 02:07:18 PM EST 5 ML active [facility] Codeine Phosphate 2 MG/ML / Guaifenesin 20 MG/ML Oral Solution Codeine-Guaifenesin Codeine-Guaifenesin 10/28/2019 02:07:18 PM EST 5 ML active [facility] Albuterol 0.83 MG/ML Inhalant Solution Albuterol Sulfate Alb uterol Sulfate 10/28/2019 02:06:35 PM EST 2.5 MG active [facility] Albuterol 0.83 MG/ML Inhalant Solution Albuterol Sulfate Alb uterol Sulfate 10/28/2019 02:06:35 PM EST 2.5 MG active [facility] Albuterol 0.83 MG/ML Inhalant Solution Albuterol Sulfate Alb uterol Sulfate 10/28/2019 02:06:35 PM EST 2.5 MG active [facility] Albuterol 0.83 MG/ML Inhalant Solution Albuterol Sulfate Alb uterol Sulfate 10/28/2019 02:06:35 PM EST 2.5 MG active [facility] Fluticasone propionate 0.115 MG/ACTUAT / salmeterol 0.021 MG/ACTUAT Metered Dose Inhaler Fluticasone Propion-Salmeterol Fluticasone Propion-Salmeterol 10/23/2019 09:40:32 AM EST 2 PUFFS active [facility] Fluticasone propionate 0.115 MG/ACTUAT / salmeterol 0.021 MG/ACTUAT Metered Dose Inhaler Fluticasone Propion-Salmeterol Fluticasone Propion-Salmeterol 10/23/2019 09:40:32 AM EST 2 PUFFS active [facility] Fluticasone propionate 0.115 MG/ACTUAT / salmeterol 0.021 MG/ACTUAT Metered Dose Inhaler Fluticasone Propion-Salmeterol Fluticasone Propion-Salmeterol 10/23/2019 09:40:32 AM EST 2 PUFFS active [facility] Division Fluticasone propionate 0.115 MG/ACTUAT / salmeterol 0.021 MG/ACTUAT Metered Dose Inhaler Fluticasone Propion-Salmeterol Fluticasone Propion-Salmeterol 10/23/2019 09:40:32 AM EST 2 PUFFS active [facility] Fluticasone propionate 0.115 MG/ACTUAT / salmeterol 0.021 MG/ACTUAT Metered Dose Inhaler Fluticasone Propion-Salmeterol Fluticasone Propion-Salmeterol 10/23/2019 09:40:32 AM EST 2 PUFFS active [facility] Fluticasone propionate 0.115 MG/ACTUAT / salmeterol 0.021 MG/ACTUAT Metered Dose Inhaler Fluticasone Propion-Salmeterol Fluticasone Propion-Salmeterol 10/23/2019 09:40:32 AM EST 2 PUFFS active [facility] Prednisone 20 MG Oral Tablet Prednisone 10/23/2019 09:39:51 AM EST 60 MG completed [facility] Prednisone 20 MG Oral Tablet Prednisone 10/23/2019 09:39:51 AM EST 60 MG active [facility] Prednisone 20 MG Oral Tablet Prednisone 10/23/2019 09:39:51 AM EST 60 MG active [facility] Prednisone 20 MG Oral Tablet Prednisone 10/23/2019 09:39:51 AM EST 60 MG active [facility] Prednisone 20 MG Oral Tablet Prednisone 10/23/2019 09:39:51 AM EST 60 MG completed [facility] Prednisone 20 MG Oral Tablet Prednisone 10/23/2019 09:39:51 AM EST 60 MG active [facility] Levofloxacin 750 MG Oral Tablet Levofloxacin 10/21/2019 02:03:57 PM EST 750 MG active [facility] Levofloxacin 750 MG Oral Tablet Levofloxacin 10/21/2019 02:03:57 PM EST 750 MG completed [facility] Levofloxacin 750 MG Oral Tablet Levofloxacin 10/21/2019 02:03:57 PM EST 750 MG completed [facility] Levofloxacin 750 MG Oral Tablet Levofloxacin 10/21/2019 02:03:57 PM EST 750 MG completed [facility] Levofloxacin 750 MG Oral Tablet Levofloxacin 10/21/2019 02:03:57 PM EST 750 MG completed [facility] Levofloxacin 750 MG Oral Tablet Levofloxacin 10/21/2019 02:03:57 PM EST 750 MG completed [facility] Prednisone 20 MG Oral Tablet Prednisone 10/20/2019 06:54:46 PM EST 0 active [facility] Prednisone 20 MG Oral Tablet Prednisone 10/20/2019 06:54:46 PM EST 0 active [facility] Prednisone 20 MG Oral Tablet Prednisone 10/20/2019 06:54:46 PM EST 0 active [facility] Prednisone 20 MG Oral Tablet Prednisone 10/20/2019 06:54:46 PM EST 0 completed [facility] Prednisone 20 MG Oral Tablet Prednisone 10/20/2019 06:54:46 PM EST 0 active [facility] Prednisone 20 MG Oral Tablet Prednisone 10/20/2019 06:54:46 PM EST 0 completed [facility] benzonatate 100 MG Oral Capsule Benzonatate Benzonatate 10/20/2019 06:32:09 PM EST [address] [facility] benzonatate 100 MG Oral Capsule Benzonatate Benzonatate 10/20/2019 06:32:09 PM EST [address] [facility] benzonatate 100 MG Oral Capsule Benzonatate Benzonatate 10/20/2019 06:32:09 PM EST [address] [facility] benzonatate 100 MG Oral Capsule Benzonatate Benzonatate 10/20/2019 06:32:09 PM EST 100 MG completed [facility] benzonatate 100 MG Oral Capsule Benzonatate Benzonatate 10/20/2019 06:32:09 PM EST [address] [facility] benzonatate 100 MG Oral Capsule Benzonatate Benzonatate 10/20/2019 06:32:09 PM EST [address] [facility] benzonatate 100 MG Oral Capsule Benzonatate Benzonatate 10/20/2019 06:32:09 PM EST [address] [facility] benzonatate 100 MG Oral Capsule Benzonatate Benzonatate 10/14/2019 03:59:59 PM EST 100 MG completed [facility] benzonatate 100 MG Oral Capsule Benzonatate Benzonatate 10/14/2019 03:59:59 PM EST 100 MG completed [facility] benzonatate 100 MG Oral Capsule Benzonatate Benzonatate 10/14/2019 03:59:59 PM EST [address] [facility] benzonatate 100 MG Oral Capsule Benzonatate Benzonatate 10/14/2019 03:59:59 PM EST 100 MG completed [facility] benzonatate 100 MG Oral Capsule Benzonatate Benzonatate 10/14/2019 03:59:59 PM EST 100 MG completed [facility] benzonatate 100 MG Oral Capsule Benzonatate Benzonatate 10/14/2019 03:59:59 PM EST 100 MG completed [facility] benzonatate 100 MG Oral Capsule Benzonatate Benzonatate 10/14/2019 03:59:59 PM EST 100 MG completed [facility] benzonatate 100 MG Oral Capsule Benzonatate Benzonatate 10/14/2019 03:59:59 PM EST 100 MG completed [facility] Azithromycin 250 MG Oral Tablet Azithromycin 10/14/2019 03:59:42 PM EST 250 MG completed [facility] Azithromycin 250 MG Oral Tablet Azithromycin 10/14/2019 03:59:42 PM EST 250 MG completed [facility] Azithromycin 250 MG Oral Tablet Azithromycin 10/14/2019 03:59:42 PM EST 250 MG completed [facility] Azithromycin 250 MG Oral Tablet Azithromycin 10/14/2019 03:59:42 PM EST 250 MG active [facility] Azithromycin 250 MG Oral Tablet Azithromycin 10/14/2019 03:59:42 PM EST 250 MG completed [facility] Azithromycin 250 MG Oral Tablet Azithromycin 10/14/2019 03:59:42 PM EST 250 MG completed [facility] Azithromycin 250 MG Oral Tablet Azithromycin 10/14/2019 03:59:42 PM EST 250 MG completed [facility] Azithromycin 250 MG Oral Tablet Azithromycin 10/14/2019 03:59:42 PM EST 250 MG completed [facility] Methylprednisolone Methylprednisolone 10/09/2019 06:11:39 PM EST 0 active [facility] Methylprednisolone Methylprednisolone 10/09/2019 06:11:39 PM EST 0 completed [facility] Methylprednisolone Methylprednisolone 10/09/2019 06:11:39 PM EST 0 completed [facility] Methylprednisolone Methylprednisolone 10/09/2019 06:11:39 PM EST 0 completed [facility] Methylprednisolone Methylprednisolone 10/09/2019 06:11:39 PM EST 0 completed [facility] Methylprednisolone Methylprednisolone 10/09/2019 06:11:39 PM EST 0 completed [facility] Methylprednisolone Methylprednisolone 10/09/2019 06:11:39 PM EST 0 active [facility] Methylprednisolone Methylprednisolone 10/09/2019 06:11:39 PM EST 0 completed [facility] Methylprednisolone Methylprednisolone 10/09/2019 06:11:39 PM EST 0 completed [facility] Oseltamivir 75 MG Oral Capsule Oseltamivir 10/05/2019 05:38:49 PM EST 75 MG completed [facility] Oseltamivir 75 MG Oral Capsule Oseltamivir 10/05/2019 05:38:49 PM EST 75 MG completed [facility] Oseltamivir 75 MG Oral Capsule Oseltamivir 10/05/2019 05:38:49 PM EST 75 MG active [facility] Oseltamivir 75 MG Oral Capsule Oseltamivir 10/05/2019 05:38:49 PM EST 75 MG completed [facility] Oseltamivir 75 MG Oral Capsule Oseltamivir 10/05/2019 05:38:49 PM EST 75 MG active [facility] Oseltamivir 75 MG Oral Capsule Oseltamivir 10/05/2019 05:38:49 PM EST 75 MG completed [facility] Oseltamivir 75 MG Oral Capsule Oseltamivir 10/05/2019 05:38:49 PM EST 75 MG completed [facility] Oseltamivir 75 MG Oral Capsule Oseltamivir 10/05/2019 05:38:49 PM EST 75 MG completed [facility] Oseltamivir 75 MG Oral Capsule Oseltamivir 10/05/2019 05:38:49 PM EST 75 MG completed [facility] Oseltamivir 75 MG Oral Capsule Oseltamivir 10/05/2019 05:38:49 PM EST 75 MG completed [facility] montelukast 10 MG Oral Tablet Montelukast Montelukast 09/29/2019 12:33:43 PM EST [address] [facility] montelukast 10 MG Oral Tablet Montelukast Montelukast 09/29/2019 12:33:43 PM EST [address] [facility] montelukast 10 MG Oral Tablet Montelukast Montelukast 09/29/2019 12:33:43 PM EST 10 MG active [facility] montelukast 10 MG Oral Tablet Montelukast Montelukast 09/29/2019 12:33:43 PM EST 10 MG active [facility] montelukast 10 MG Oral Tablet Montelukast Montelukast 09/29/2019 12:33:43 PM EST 10 MG active [facility] montelukast 10 MG Oral Tablet Montelukast Montelukast 09/29/2019 12:33:43 PM EST 10 MG active [facility] montelukast 10 MG Oral Tablet Montelukast Montelukast 09/29/2019 12:33:43 PM EST 10 MG active [facility] montelukast 10 MG Oral Tablet Montelukast Montelukast 09/29/2019 12:33:43 PM EST 10 MG active [facility] montelukast 10 MG Oral Tablet Montelukast Montelukast 09/29/2019 12:33:43 PM EST 10 MG active [facility] montelukast 10 MG Oral Tablet Montelukast Montelukast 09/29/2019 12:33:43 PM EST 10 MG active [facility] 120 ACTUAT Fluticasone propionate 0.044 MG/ACTUAT Metered Dose Inhaler Fluticasone Propionate Fluticasone Propionate 08/05/2019 10:18:13 PM EST 2 PUFFS completed [facility] 120 ACTUAT Fluticasone propionate 0.044 MG/ACTUAT Metered Dose Inhaler Fluticasone Propionate Fluticasone Propionate 08/05/2019 10:18:13 PM EST 2 PUFFS completed [facility] 120 ACTUAT Fluticasone propionate 0.044 MG/ACTUAT Metered Dose Inhaler Fluticasone Propionate Fluticasone Propionate 08/05/2019 10:18:13 PM EST 2 PUFFS completed [facility] 120 ACTUAT Fluticasone propionate 0.044 MG/ACTUAT Metered Dose Inhaler Fluticasone Propionate Fluticasone Propionate 08/05/2019 10:18:13 PM EST 2 PUFFS completed [facility] 120 ACTUAT Fluticasone propionate 0.044 MG/ACTUAT Metered Dose Inhaler Fluticasone Propionate Fluticasone Propionate 08/05/2019 10:18:13 PM EST 2 PUFFS completed [facility] 120 ACTUAT Fluticasone propionate 0.044 MG/ACTUAT Metered Dose Inhaler Fluticasone Propionate Fluticasone Propionate 08/05/2019 10:18:13 PM EST 2 PUFFS completed [facility] 120 ACTUAT Fluticasone propionate 0.044 MG/ACTUAT Metered Dose Inhaler Fluticasone Propionate Fluticasone Propionate 08/05/2019 10:18:13 PM EST 2 PUFFS completed [facility] 120 ACTUAT Fluticasone propionate 0.044 MG/ACTUAT Metered Dose Inhaler Fluticasone Propionate Fluticasone Propionate 08/05/2019 10:18:13 PM EST 2 PUFFS completed [facility] 120 ACTUAT Fluticasone propionate 0.044 MG/ACTUAT Metered Dose Inhaler Fluticasone Propionate Fluticasone Propionate 08/05/2019 10:18:13 PM EST 2 PUFFS completed [facility] montelukast 10 MG Oral Tablet Montelukast Montelukast 10/09/2018 11:37:00 AM EST 1 TAB completed [facility] montelukast 10 MG Oral Tablet Montelukast Montelukast 10/09/2018 11:37:00 AM EST 1 TAB completed [facility] montelukast 10 MG Oral Tablet Montelukast Montelukast 10/09/2018 11:37:00 AM EST 1 TAB completed [facility] montelukast 10 MG Oral Tablet Montelukast Montelukast 10/09/2018 11:37:00 AM EST 1 TAB completed [facility] montelukast 10 MG Oral Tablet Montelukast Montelukast 10/09/2018 11:37:00 AM EST 1 TAB completed [facility] montelukast 10 MG Oral Tablet Montelukast Montelukast 10/09/2018 11:37:00 AM EST 1 TAB completed [facility] montelukast 10 MG Oral Tablet Montelukast Montelukast 10/09/2018 11:37:00 AM EST 1 TAB completed [facility] montelukast 10 MG Oral Tablet Montelukast Montelukast 10/09/2018 11:37:00 AM EST 1 TAB completed [facility] montelukast 10 MG Oral Tablet Montelukast Montelukast 10/09/2018 11:37:00 AM EST 1 TAB completed [facility] montelukast 10 MG Oral Tablet Montelukast Montelukast 10/09/2018 11:37:00 AM EST 1 TAB completed [facility] Insurance Providers Payer name Policy type / Coverage type Policy ID Covered alliance party ID Covered alliance party's relationship to su Policy Su Plan Information [employer] [place] P[place] 302/307 [id number] SP [id number] [employer] [facility] [place] Other 0 Self 0 [employer] [place] P[place] 302/307 [id number] SP [id number] [facility] [id number] SP [id number] [employer] [facility] [place] Other [id number] Self [id number] [employer] [facility] [place] Other [id number] Self [id number] [employer] [facility] [place] Other [id number] Self [id number] [employer] [facility] [place] Other [id number] Self [id number] [employer] [facility] [place] Other [id number] Self [id number] [employer] [facility] [place] Other [id number] Self [id number] [employer] [facility] [place] Other [id number] Self [id number] [employer] [facility] [place] Other [id number] Self [id number] [employer] [facility] [place] Other [id number] Self [id number] [employer] [facility] [place] Other [id number] Self [id number] [employer] [facility] [place] Other 0 Self 0 [employer] [facility] [place] Other [id number] Self [id number] [employer] [facility] [place] Other [id number] Self [id number] [employer] of [facility] Other [id number] Self [id number] [employer] of [facility] Other [id number] Self [id number] [employer] of [facility] Other [id number] Self [id number] [employer] of [facility] Other [id number] Self [id number] [employer] of [facility] Other 0 Self 0 Surgeries/Procedures Procedure Description Date Indications Data Source(s) Diagnostic radiography of chest, combine d posteroanterior and lateral (procedure) 11/01/2019 07:21:00 PM [facility] Diagnostic radiography of chest, combine d posteroanterior and lateral (procedure) 11/01/2019 07:21:00 PM [facility] Diagnostic radiography of chest, combine d posteroanterior and lateral (procedure) 11/01/2019 07:21:00 PM [facility] Bacteria identification test (procedure) 11/01/2019 12 :00:00 AM [facility] Gram stain microscopy (procedure) 11/01/2019 12:00:00 AM [facility] Blood culture for bacteria, including anaerobic screen (proc edure) 11/01/2019 12:00:00 AM [facility] Blood culture for bacteria, including anaerobic screen (proc edure) 11/01/2019 12:00:00 AM [facility] Bacteria identification test (procedure) 11/01/2019 12 :00:00 AM [facility] Gram stain microscopy (procedure) 11/01/2019 12:00:00 AM [facility] Blood Culture 11/01/2019 12:00:00 AM [facility] Sputum Culture 11/01/2019 12:00:00 AM [facility] Gram Stain 11/01/2019 12:00:00 AM [facility] Computerized axial tomography of maxillofacial area with con trast (procedure) 10/28/2019 11:36:00 AM [facility] Computerized axial tomography of maxillofacial area with con trast (procedure) 10/28/2019 11:36:00 AM [facility] Computerized axial tomography of maxillofacial area with con trast (procedure) 10/28/2019 11:36:00 AM EST [facility] Computerized axial tomography of maxillofacial area with con trast (procedure) 10/28/2019 11:36:00 AM [facility] Computerized axial tomography of thorax with contrast (proce dure) 10/26/2019 02:10:00 PM [facility] Computerized axial tomography of thorax with contrast (proce dure) 10/26/2019 02:10:00 PM [facility] Computerized axial tomography of thorax with contrast (proce dure) 10/26/2019 02:10:00 PM [facility] Computerized axial tomography of thorax with contrast (proce dure) 10/26/2019 02:10:00 PM [facility] Computerized axial tomography of thorax with contrast (proce dure) 10/26/2019 02:10:00 PM [facility] Detection of bacteria (procedure) 10/26/2019 12:00:00 AM [facility] Detection of bacteria (procedure) 10/26/2019 12:00:00 AM [facility] Detection of bacteria (procedure) 10/26/2019 12:00:00 AM [facility] Detection of bacteria (procedure) 10/26/2019 12:00:00 AM [facility] Detection of bacteria (procedure) 10/26/2019 12:00:00 AM [facility] Diagnostic radiography of chest, combine d posteroanterior and lateral (procedure) 10/20/2019 06:54:00 PM [facility] Diagnostic radiography of chest, combine d posteroanterior and lateral (procedure) 10/20/2019 06:54:00 PM [facility] Diagnostic radiography of chest, combine d posteroanterior and lateral (procedure) 10/20/2019 06:54:00 PM [facility] Diagnostic radiography of chest, combine d posteroanterior and lateral (procedure) 10/20/2019 06:54:00 PM [facility] Diagnostic radiography of chest, combine d posteroanterior and lateral (procedure) 10/20/2019 06:54:00 PM [facility] Diagnostic radiography of chest, combine d posteroanterior and lateral (procedure) 10/20/2019 06:54:00 PM [facility] Diagnostic radiography of chest, combine d posteroanterior and lateral (procedure) 10/09/2019 04:43:00 PM [facility] Diagnostic radiography of chest, combine d posteroanterior and lateral (procedure) 10/09/2019 04:43:00 PM [facility] Diagnostic radiography of chest, combine d posteroanterior and lateral (procedure) 10/09/2019 04:43:00 PM [facility] Diagnostic radiography of chest, combine d posteroanterior and lateral (procedure) 10/09/2019 04:43:00 PM [facility] Diagnostic radiography of chest, combine d posteroanterior and lateral (procedure) 10/09/2019 04:43:00 PM [facility] Diagnostic radiography of chest, combine d posteroanterior and lateral (procedure) 10/09/2019 04:43:00 PM [facility] Diagnostic radiography of chest, combine d posteroanterior and lateral (procedure) 10/09/2019 04:43:00 PM [facility] Diagnostic radiography of chest, combine d posteroanterior and lateral (procedure) 10/09/2019 04:43:00 PM [facility] Diagnostic radiography of chest, combine d posteroanterior and lateral (procedure) 10/09/2019 04:43:00 PM [facility] Detection of bacteria (procedure) 10/09/2019 12:00:00 AM [facility] Detection of bacteria (procedure) 10/09/2019 12:00:00 AM [facility] Detection of bacteria (procedure) 10/09/2019 12:00:00 AM [facility] Detection of bacteria (procedure) 10/09/2019 12:00:00 AM [facility] Detection of bacteria (procedure) 10/09/2019 12:00:00 AM [facility] Detection of bacteria (procedure) 10/09/2019 12:00:00 AM [facility] Detection of bacteria (procedure) 10/09/2019 12:00:00 AM [facility] Detection of bacteria (procedure) 10/09/2019 12:00:00 AM [facility] Detection of bacteria (procedure) 10/09/2019 12:00:00 AM [facility] Results ID Date Data Source [id number] 10/22/2020 09:00:00 AM EST [facility] Name Value Range Interpretation Code Description Data Kristyn rce(s) Supporting Document(s) SARS coronavirus 2 RNA Not Detected [facility] This lab was ordered by [facility] and reported by [facility]. ID Date Data Source [id number] 08/20/2020 12:00:00 AM EST [facility] Name Value Range Interpretation Code Description Data Kristyn rce(s) Supporting Document(s) SARS-CoV-2 (COVID-19) RNA [Presence] in Respiratory specimen by DAMASO with probe detection [facility] This lab was ordered by [facility] and reported by [employer]. ID Date Data Source [id number] 08/19/2020 12:06:00 PM [facility] Normal result is "BinaxNow Covid-19 Ag n egative"BinaxNow Covid-19 Ag is a rapid lateral flowimmunochromatographic immunoassayThis test detects both viable(live) and non-viable, SARS-COVand SARS-COV-2.Positive test results do not differentiate between SARS-COVand [id number] results , from patients with symptom onset beyondseven days, should be treated as presumptive andconfirmation with a molecular assay, if necessary, forpatient managementIf the differentiation of specific SARS viruses and strainsis needed, additional testing, in consultation with stateand local public health departments, is required.SARS-CoV-2 Ag Resp Ql [place].rapid Name Value Range Interpretation Code Description Data Kristyn rce(s) Supporting Document(s) ID Date Data Source [id number] 08/19/2020 09:30:00 AM [facility] Name Value Range Interpretation Code Description Data Kristyn rce(s) Supporting Document(s) SARS-CoV-2 (COVID-19) Ag [Presence] in R espiratory specimen by Rapid immunoassay [facility] This lab was ordered by [facility] and reported by [facility]. ID Date Data Source [id number] 07/26/2020 03:48:00 PM [facility] Normal result is "BinaxNow Covid-19 Ag n egative"BinaxNow Covid-19 Ag is a rapid lateral flowimmunochromatographic immunoassayThis test detects both viable(live) and non-viable, SARS-COVand SARS-COV-2.Positive test results do not differentiate between SARS-COVand [id number] results , from patients with symptom onset beyondseven days, should be treated as presumptive andconfirmation with a molecular assay, if necessary, forpatient managementIf the differentiation of specific SARS viruses and strainsis needed, additional testing, in consultation with [facility] public health departments, is required.BinaxNow Covid -19 Ag Negative Name Value Range Interpretation Code Description Data Kristyn rce(s) Supporting Document(s) ID Date Data Source [id number] 07/26/2020 12:00:00 AM EST [facility] Name Value Range Interpretation Code Description Data Kristyn rce(s) Supporting Document(s) SARS-CoV2 Rapid Antigen [facility] This lab was ordered by [facility] and reported by [facility]. ID Date Data Source [id number] 07/13/2020 12:00:00 AM EST [facility] Name Value Range Interpretation Code Description Data Kristyn rce(s) Supporting Document(s) SARS-CoV2 Rapid Antigen [facility] This lab was ordered by [facility] and reported by [facility]. ID Date Data Source [id number] 06/28/2020 03:00:00 PM EDT [facility] Normal result is "BinaxNow Covid-19 Ag n egative"BinaxNow Covid-19 Ag is a rapid lateral flowimmunochromatographic immunoassayThis test detects both viable(live) and non-viable, SARS-COVand SARS-COV-2.Positive test results do not differentiate between SARS-COVand [id number] results , from patients with symptom onset beyondseven days, should be treated as presumptive andconfirmation with a molecular assay, if necessary, forpatient managementIf the differentiation of specific SARS viruses and strainsis needed, additional testing, in consultation with [facility] public health departments, is required.BinaxNow Covid -19 Ag Negative Name Value Range Interpretation Code Description Data Kristyn rce(s) Supporting Document(s) ID Date Data Source [id number] 06/28/2020 12:00:00 AM EDT [facility] Name Value Range Interpretation Code Description Data Kristyn rce(s) Supporting Document(s) SARS-CoV2 Rapid Antigen [facility] This lab was ordered by [facility] and reported by [facility]. 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 control systems developer measures indicate that this specimen contains an inhibitory substance, which prohibits accurate detection of organisms. Recommend submitting a new specimen for testing if clinically indicated. Testing performed by the FDA-approved APTIMA COMBO 2 method. TP Reflex HPV ASCUS Laboratory test result [facility] (Konrad Joel BRAIN WAVE TECHNICIAN) ID Date Data Source [id number] 03/22/2020 12:00:00 PM EDT [facility] (Konrad Joel BRAIN WAVE TECHNICIAN) Name Value Range Interpretation Code Description Data Kristyn rce(s) Supporting Document(s) Cytology report of Cervical or vaginal smear or scrapi ng Cyto stain.thin prep Laboratory test result [facility] (Konrad Joel BRAIN WAVE TECHNICIAN) SPECIMEN PART------ A. Cervical, Endocervical, ThinPrep Pap (Gun Number) CYTOLOGY HX-------- Date of Last Menstrual Period: 03/15/20 Other Information:Previous Normal Pap: 04/05/14 FINAL DIAGNOSIS---- INTERPRETATION: Negative for Intraepithelial Lesion or Malignancy. SPECIMEN ADEQUACY:Satisfactory for evaluation. Endocervical/transformation zone component is absent/insufficient. ID Date Data Source [id number] 11/06/2019 08:39:00 AM EST [facility] Patient Name: LIBAN FLOWER : 1980 Sex: F Pt Unit #: [id number] Location:[facility] Provider: Visit Date/Time: 11/06/19 Primary Insurance: BC/BS OF [place] Secondary Insurance: Self Pay Intake Vital Signs 11/06/19 08:45 BP 120/76 Blood Pressure Location Lt brachial Position Sitting Respiration 18 Pulse 78 Pulse Strength Normal Temp 98.4 F Temp Source Tympanic Pulse Oximetry (%) 97 Oxygen Delivery Method room air Intake Visit Reasons: Cough Nurse Note: Here today for recheck . Has an appt with PULM on 11/12/18. Continues Augmentin and 40mg prednisone daily. 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 Pretest education received and acknowledged [facility] Medical History Allergic rhinitis Asthma (Acute) Gall bladder disease (Inactive) Insomnia Obese body habitus (Acute) Post-infection bronchospasm (Inactive) Sinusitis chronic, ethmoidal (Inactive) Tobacco use (Acute) Surgical History section Cholecystectomy (06/07/16) History of - surgery ( 1999) History of - surgery History of - surgery Social History Does the Patient have a Healthcare Proxy: No Does Patient have a DNR?: No Does Patient have a Jenni ng Will?: No Hx Recent Travel (where): No HPI Additional HPI HPI Details: as above. her cough is no worse off the codeine. the augmentin is causing some epigastricpain. Cough Pulmonary Results: No Data to Display Review of Systems ENT Denies hearing loss (both ears feel plugged) Card Denies dyspnea Resp Denies chest congestion, Reports cough, Denies excessive phlegm production, Denies dyspnea and Denies wheezing Aller/Immun Denies wheezing Exam Const General: cooperative, no acute distress and well groomed Nutritional Appearance: obese Orientation: alert, awake and oriented x3 HENMT Ears: external ears normal, TM's normal bilaterally and EAC's normal Chest Chest: normal inspection of the chest Resp Effort Inspection: normal respiratory effort Auscultation: clear to auscultation bilaterally Assessment Plan Assessment Plan (1) Cough: Code(s): R05 - Cough Plan - Contreras Bond M.D.: no etiology for the cough is known as yet. will taper her down on the steroids pending her pulmonary appt. she will continue the augmentin as long as the epigastric pain gets no worse. reassured that the eustachian tube dysfunction will resolve. recheck here will be prn. Electronically Signed By: <Electronically signed by Contreras Bond MD> Date/Time Signed: 11/06/19 0859 Name Value Range Interpretation Code Description Data Kristyn rce(s) Supporting Document(s) ID Date Data Source [id number] 11/03/2019 10:25:00 AM [facility] Patient Name: LIBAN FLOWER : 1980 Sex: F Pt Unit #: [id number] Location:[facility] Provider: Visit Date/Time: 11/03/19 Primary Insurance: /[facility] [place] Secondary Insurance: Self Pay Intake Vital Signs 11/03/19 10:28 BP 120/60 Blood Pressure Location Lt brachial Position Sitting Respiration 18 Pulse 83 Pulse Strength Normal Temp 98.1 F Temp Source Tympanic Pulse Oximetry (%) 94 L Oxygen Delivery Method room air Intake Visit Reasons: cough Nurse Note: Here today for f/u on her cough. Was seen at [facility] was given Robitussin with Codein and this helped her a lot. Continues 60mg Prednisone daily. Truck Farmer Required: No Accompanied by: self Is patient in pain?: No Allergies doxycycline Adverse Reaction (Mild, Verified 11/01/19 19:14) nausea HIV Testing Offer - ages 13-64 Requirement for HIV testing offer been met?: Declines today. Pretest education received and acknowledged [facility] Social History Does the Patient have a Healthcare Proxy: No Does Patient have a DNR?: No Does Patient have a Living Will?: No Hx Recent Travel (where): No HPI Additional HPI HPI Details: as above. since her last visit here, she was seen in the ED twice. ct and plain films of the lungs were unremarkable. he white count was 20,000 with a left shift. she feels as if her sinuses are infected. the cough has been better for 2 days and ran out of codeine last night. Review of Systems Const Denies body ache, Denies chills, Denies fever(s) and Reports malaise ENT Reports nasal congestion, Reports post nasal drip and Reports sinus pressure Card Denies dyspnea Resp Reports cough, Denies excessive phlegm production, Denies pain on inspiration, Denies dyspnea and Denies wheezing Aller/Immun Denies wheezing Exam Const General: cooperative, no acute distress and well groomed Nutritional Appearance: obese Orientation: alert, awake and oriented x3 HENMT Head: normal to inspection, normocephalic and atraumatic Ears: hearing grossly normal bilaterally, external ears normal, TM's normal bilaterally and EAC's normal General nose exam: external nose normal and no nasal discharge Face and sinus: normal facial exam Mouth: oral mucosae normal, lip normal, tongue normal, oropharynx normal and moist mucous membranes Throat: posterior oropharynx normal Eyes General: appearance normal, both eyes and all related structures Alignment and Position: alignment normal Periorbital: periorbital findings normal Eyelids: eyelids normal Conjunctivae: conjunctivae normal Sclera: sclerae normal Cornea: corneas normal Pupils: PERRL EOM: EOM intact bilaterally Neck Neck: normal visual inspection, no lymphadenopathy and supple Neck mass: No Thyroid: thyroid normal Chest Chest: normal inspection of the chest Resp Effort Inspection: normal respiratory effort Auscultation: clear to auscultation bilaterally Cardio Rate: regular rate Rhythm: regular rhythm Heart Sounds: S1 normal, S2 normal, no click, no gallops and no murmurs Assessment Plan Assessment Plan (1) Asthma: Status: Acute SNOMED Code(s): 553761063 Category: Medical Plan - Contreras Bond M.D.: she may have bacterial sinusitis given her high white count and symptoms. this could cause persistent cough. will rx with augmentin and decrease prednisone to 40 mg. recheck in 4 days. no work. will see if pulmonary can get her in imtiaz. Orders Other Medications: New: amoxicillin-pot clavulanate 875-125 mg 1 tab PO BID 20 tabs 0RF Changed: From: prednisone 60 mg (3 x 20 mg) PO QDAY 30 tabs 0RF To: prednisone 40 mg (2 x 20 mg) PO QDAY 30 tabs 0RF Discontinued: prednisone Discontinued Reason: MD Order 3 tabs by mouth day 1,2,3; 2 tabs day 4,5; 1 tab day 6,7 15 tabs 0RF Electronically Signed By: <Electronically signed by Contreras Bond MD> Date/Time Signed: 11/03/19 1050 Name Value Range Interpretation Code Description Data Kristyn rce(s) Supporting Document(s) ID Date Data Source [id number] 11/03/2019 07:49:00 AM [facility] Moderate PMNsSquamous cells - Fewmucous presentSpecimen Quality - GoodOropharyngeal organisms Name Value Range Interpretation Code Description Data Kristyn rce(s) Supporting Document(s) ID Date Data Source [id number] 11/03/2019 07:49:00 AM [facility] Moderate PMNsSquamous cells - Fewmucous presentSpecimen Quality - GoodOropharyngeal organisms Name Value Range Interpretation Code Description Data [facility] rce(s) Supporting Document(s) Culture results Normal amparo [facility] ID Date Data Source [id number] 11/04/2019 08:06:00 PM [facility] Name Value Range Interpretation Code Description Data Kristyn rce(s) Supporting Document(s) Legionella pneumophila 1 Ag [Presence] in Urine by Immunoassay Negative [facility] Presumptive negative for L. pneumophila serogroup 1 antigenin urine, suggesting no recent or current infection.Legionnaires' disease cannot be ruled out since otherserogroups and species may also cause disease.Performed at: [address] [id number] Director: Agueda Argueta MD, Phone: [phone] ID Date Data Source [id number] 11/01/2019 09:26:00 PM [facility] Name: LIBAN FLOWER : 1980 Age: 39 MR#: [id number] Admit Date: 11/01/19 Provider: Rico Lewis Room #: Consulting Provider: Dictation Date: 11/01/19 Consultation HPI Date of Service Date of service:: 11/01/19 Allergies/Home Meds Allergies Allergy/AdvReac Type Severity Reaction Status Date / Time doxycycline AdvReac Mild nausea Verified 11/01/19 19:14 Home Medications Medication Instructions Recorded Confirmed Last Taken Type albuterol sulfate [Ventolin HFA] 2 puff INHALATION Q4HPRN PRN #1 ih 08/11/18 11/01/19 11/01/19 History hydroxyzine HCl 1 tab PO BID PRN #60 tab 10/09/18 11/01/19 10/31/19 History escitalopram oxalate 10 mg tablet 10 mg PO HS 05/21/19 11/01/19 10/31/19 History montelukast 10 mg tablet 10 mg PO HS #90 tab 09/29/19 11/01/19 11/01/19 Rx benzonatate 100 mg capsule 100 mg PO TID PRN #30 cap 10/20/19 11/01/19 10/26/19 Rx prednisone 20 mg tablet See Rx Instructions PO QDAY #15 tab 10/20/19 11/01/19 11/01/19 Rx fluticasone propionate 115 2 puffs IH BID #12 gm 10/23/19 11/01/19 11/01/19 Rx mcg-salmeterol 21 mcg/actuation HFA inhaler prednisone 20 mg tablet 60 mg PO QDAY #30 tab 10/23/19 11/01/19 11/01/19 Rx albuterol sulfate 2.5 mg IH QID PRN #75 ml 10/28/19 11/01/19 11/01/19 Rx codeine-guaifenesin 5 ml PO Q6HR PRN #120 ml 10/28/19 11/01/19 11/01/19 Rx Past History Surgical History PSH (Free Text/Narrative):: Depression/ Anxiety Social History Smoking Status: Current every day smoker Subjective-ROS Review of Systems ROS (Free Text/Narrative):: All other systems reviewed and negative Objective Objective Narrative:: This is a 39-year-old female who presents to the emergency department with posttussive emesis. She states that she feels weak, and has been sick for the past 5 weeks. Patient has been seen here multiple times for the same complaint. She has had a negative viral panel, as well as negative CTA of the chest. She has been on Levaquin as well as doxycycline and corticosteroids. She states she feels her her symptoms have improved, but her cough is been causingposttussive emesis. She has not had any chest pain or shortness of breath, she has been using a nebulizer and an inhaler as needed. I was asked to consult on this patient in the emergency room for possible admission. I will note today's chest x-ray is unremarkable, she d oes have a leukocytosis however she has been on corticosteroids for the past 2 weeks. Lactate is minimally elevated, of no clinical significance at this time. Patient has not had a sputum culture nor Legionella testing performed. Also of note, the patient's glucose is minimally elevated and she is spilling some into her urine. Most likely again this is due to corticosteroid use, however this needs to be followed up with with primary care. Vital Signs and I O Vitals and I O: Vital Signs last 12 hours Temp Pulse Resp BP Pulse Ox 11/01/19 19:00 98.1 F 72 20 121/69 93 L Intake Output Last 24 Hours 10/30/19 10/31/19 11/01/19 23:59 23:59 23:59 Current Weight 204 lb Results Results: 11/01/19 19:35 11/01/19 19:35 Laboratory Results Last 24 hours 11/01/19 19:35: WBC 20.2 H, RBC 4.48, Hgb 13.5, Hct 41.2, MCV 92.0, MCH 30.1, MCHC 32.8 L, RDW 13, Plt Count 428, MPV 8.7 L, Immature Gran % (Auto) 2.3 H, Neut % (Auto) 83.8 H, Lymph % (Auto) 12.1 L,Johnson % (Auto) 1.5 L, Eos % (Auto) 0.1, Baso % (Auto) 0.2 L, Lymph # (Auto) 2.4, Abs Immat Gran (auto) 0.5 H, Add Manual Diff Manual diff added, Total Counted 100, Neutrophils (Manual) 83 H, Absolute Neutrophils 17.0 H, Band Neutrophils 2, Lymphocytes (Manual) 14, Monocytes (Manual) 1 L, Monocytes # 0.3, Absolute Eosinophils 0.0, Absolute Basophils 0.1, Platelet Estimate Appears normal,RBC Morphology Appears normal 11/01/19 19:35: Sodium 138, Potassium 4.0, Chloride 104, Carbon Dioxide 26, Anion Gap 12, BUN 16, Creatinine 0.8, GFR Calculation Greater than 60, Glucose 138 H, Calcium 8.9, Total Bilirubin 0.2 L, AST 9, ALT 24, Alkaline Phosphatase 75, Troponin I Less than 0.015, Serum Total Protein 7.3, Albumin3.5, Amylase 33, Lipase 136 11/01/19 19:35: Lactic Acid 2.5 H 11/01/19 19:54: Urine Color Yellow, Urine Appearance Clear, Urine pH 6.5, Ur Specific Ambler 1.019,Urine Protein Negative, Urine Ketones Trace A, Urine Blood Trace H, Urine Nitrate Negative, Urine Bilirubin Negative, Urine Urobilinogen 0.2 eu/dl, Ur Leukocyte Esterase Negative, Add Ur Microanalysis Microscopic added, Urine RBC Occasional, Urine WBC Occasional, Ur Squamous Epith Cells Many,Urine Bacteria Small amount H, Urine Glucose 250 mg/dl A Exam Orientation: Alert, Oriented x3, Cooperative and No acute distress HEENT: Atraumatic, EOMI and Mucous membr. moist/pink Lungs: normal lung sounds bilaterally; negative for respiratory distress, wheezes, rales, rhonchi, stridor and accessory muscle use Cardiovascular Exam: regular rate, normal rhythm, normal heart sounds and no murmur; negative for rubs, gallop and clicks Abdomen: Soft; negative for Tenderness and Hepatospenomegaly Female : deferred Extremities: normal inspection, Full ROM without tenderness, capillary refill brisk and capillary refill brisk; negative for tenderness and pedal edema Skin: Skin warm and dry, Mucus membranes moist and Color normal for race Neurological: Normal speech, Normal tone and Cranial nerves 3-12 NL Psych/Mental Status: normal affect and normal mood Other Other exam information: Cough: I recommend ordering a Legionella as well as a sputum culture. Continue prednisone as well, I would recommend to taper from current dosage as blood glucose is elevated there is presence of glycosuria as well.Continue codeine with guaifenesin. I also recommend that the patient restart the Tessalon Perles in addition for increased cough control. Patient should follow-up with primary care in 2 to 3 days, pulmonology consult is pending. ContinueVentolin HFA as well as nebulizers as needed. Patient does not meet admission criteria at this time. Leukocytosis most certainly due to corticosteroid use over the past 2 weeks, minimally elevated lactate of no clinical insignificance at this time. Possible post viral cough, or multipleviral reinfections occurring consecutively. Do not recommend antibiotic treatment at this time Minimally elevated serum glucose and glycosuria: Most likely due to corticosteroid use, however thisis due to be closely followed by primary care, further testing may be indicated on outpatient basis. Social History Advanced Directives Does the Patient have a Healthcare Proxy: No Does Patient have a DNR?: No Does Patient have a Living Will?: No Hx Recent Travel (where): No Tobacco Smoking Status: Current every day smoker tobacco type: cigarettes Report Signers: <Electronically signed by Rico MUHAMMAD> Rico MUHAMMAD 11/01/192137 Rico Lewis SIGNATURE DA Report Cosigners: <<Signature on File>> Jonel Bond MD 11/02/19711 <Electronically signed by Jonel Bond MD> Jonel Bond MD 11/02/19711 D: JEET 11/01/192125 T: JEET 11/01/192125 CC: Name Value Range Interpretation Code Description Data Kristyn rce(s) Supporting Document(s) ID Date Data Source [id number] 11/01/2019 09:05:00 PM [facility] [address] [id number] [phone] NAME SEX PT STATUS ACCOUNT NUMBER LIBAN FLOWER [facility] ER [id number] ORDERING PHYSICIAN LOCATION MEDICAL RECORD NO. Oscar De La Rosa MD ER [id number] ATTENDING PHYSICIAN DATE OF DATE OF EXAM/TIME Contreras Bond MD 1980 11/01/191920 TYPE / EXAM Xray Chest 2 view PA/LAT REASON FOR EXAM cough Clinical History/Indication for Exam: cough Chest X-ray 2 Views. INDICATION: Cough. Comparison: 10/20/19 chest x-ray. FINDINGS: Frontal and lateral views of chest show clear lungs. The previously described prominent interstitial markings in the right base is no longer present. The heart size is normal. No pleural effusion is identified. No pneumothorax is identified. The bone structures appear normal. IMPRESSION: No acute disease. REPORT SIGNATURE ON FILE 11/01/2019 (21:05 Eastern Time ) Signed by: Michael Peterson M.D. Reported By Michael Peterson MD on 11/01/192104 Signed By Michael Peterson MD on 11/01/192104 Date Time CC: Contreras Bond M.D.; Michael Peterson MD Techn: [id number] Trans Dt/Tm: Trans by: DT Prt Dt/Tm: : Total DLP = 0.00 mGy-cm Fluoroscopy Time (in secs): Name Value Range Interpretation Code Description Data Kristyn rce(s) Supporting Document(s) ID Date Data Source [id number] 11/01/2019 08:16:00 PM EST [facility] Reason for ordering culture: Abnormal fi ndings UA@11/01/19 2007: UA W/ MICRO added. RFLXG = UMIC CIF.Method of Collection:: Voided Reason for ordering culture: Abnormal fi ndings UA@11/01/19 2007: UA W/ MICRO added. RFLXG = UMIC CIF.Method of Collection:: Voided Name Value Range Interpretation Code Description Data Kristyn rce(s) Supporting Document(s) Color of Urine [facility] Appearance of Urine CLEAR [facility] pH of Urine by Test strip 6.5 5-8 [facility] Specific gravity of Urine by Refractometry 1.019 1.005-1.030 [facility] Leukocyte esterase [Presence] in Urine by Test strip NEGAT CHRISTIANO [facility] Nitrite [Presence] in Urine by Test strip NEGATIVE [facility] Protein [Presence] in Urine by Test strip NEGATIVE [facility] Glucose [Mass/volume] in Urine by Automated test strip 250 mg/dl NEGATIVE Abnormal (applies to non-numeric results) [facility] Ketones [Presence] in Urine by Test strip NEGATI VE Abnormal (applies to non- numeric results) [facility] Urobilinogen [Presence] in Urine 0.2-1 EU/dl [facility] Bilirubin.total [Presence] in Urine by Automated test strip NEGATIVE [facility] Erythrocytes [#/volume] in Urine by Test strip TRACE NEGATIV E Above high normal [facility] @DO MICRO!!!! URINE MICROSCOPIC? (CIF) Microscopic Added [facility] ID Date Data Source [id number] 11/01/2019 08:16:00 PM [facility] Reason for ordering culture: Abnormal fi ndings UA@11/01/19 2007: UA W/ MICRO added. RFLXG = UMIC CIF.Method of Collection:: Voided Reason for ordering culture: Abnormal fi ndings UA@11/01/19 2007: UA W/ MICRO added. RFLXG = UMIC CIF.Method of Collection:: Voided Name Value Range Interpretation Code Description Data Kristny rce(s) Supporting Document(s) Erythrocytes [#/volume] in Urine by Manual count OCCASIONAL 0-5 [facility] Leukocytes [#/volume] in Urine by Manual count OCCASIONAL 0-5 [facility] Cells [Type] in Urine sediment by Light microscopy [facility] Bacteria [Presence] in Urine sediment by Light microscopy NEGATIVE Above high normal [facility] ID Date Data Source [id number] 11/01/2019 08:17:00 PM [facility] Special Instructions: Lab may order repe at test if initial test elevatedPhysician If elevated, reflex second test in 4-6 hrs Name Value Range Interpretation Code Description Data Kristyn rce(s) Supporting Document(s) Lactic w Rfx (if elevated) 2.5 mmol/L 0.5-2.2 Above high normal [facility] Called to [place] @ 2015 by Delmy Eddy . Results read back. ID Date Data Source [id number] 11/06/2019 07:42:00 PM [facility] Special Instructions: Lab may order repe at test if initial test elevatedPhysician If elevated, reflex second test in 4-6 hrs Name Value Range Interpretation Code Description Data Kristyn rce(s) Supporting Document(s) Bacteria identified in Blood by Culture [facility] NO GROWTH AFTER 5 DAYS ID Date Data Source [id number] 11/01/2019 08:01:00 PM [facility] @11/01/19 2001: MANUAL DIFF added. RFLXG = DIFF. @11/01/19 2001: MANUAL DIFF added. RFLXG = DIFF. Name Value Range Interpretation Code Description Data Kristyn rce(s) Supporting Document(s) Leukocytes [#/volume] in Blood by Automated count 20.2 10*3/uL 4.45-10.71 Above high normal [facility] Erythrocytes [#/volume] in Blood by Automated count 4.48 10*6/uL 4.20 -5.40 N [facility] Hemoglobin [Moles/volume] in Blood 13.5 g/dL 10.7-15.4 N [facility] Hematocrit [Volume Fraction] of Blood by Automated count 41.2 % 3 7-47 N [facility] Erythrocyte mean corpuscular volume [Ent itic volume] in Cord blood by Automated count 92.0 fL 80-96 N [facility] Erythrocyte mean corpuscular hemoglobin [Entitic mass] by Automated count 30.1 pg 27-31 N [facility] Erythrocyte mean corpuscular hemoglobin concentration [Mass/volume] in Cord blood 32.8 g/dL 33-37 Below low normal [facility] Erythrocyte distribution width [Entitic volume] by Automated count 13 % 11-15 N [facility] Platelets [#/volume] in Blood by Automated count 428 10*3/uL 130-472 N [facility] Platelet mean volume [Entitic volume] in Blood 8.7 fL 9.1-13. 1 Below low normal [facility] Neutrophils/100 leukocytes in Blood by Automated count 83.8 % 41-77 Above high normal [facility] Neutrophils [#/volume] in Blood by Automated count 17.0 U 1.7-7.6 Above high normal [facility] Lymphocytes/100 leukocytes in Blood by Automated count 12.1 % 14-46 Below low normal [facility] Lymphocytes [#/volume] in Blood by Automated count 2.4 U 0.6-4.6 N [facility] Monocytes/100 leukocytes in Blood by Automated count 1.5 % 4-12 Below low normal [facility] Monocytes [#/volume] in Blood by Automated count 0.3 U 0.2-1.2 N [facility] Eosinophils/100 leukocytes in Blood by Automated count 0.1 % 0-7 N [facility] Eosinophils [#/volume] in Blood by Automated count 0.0 U 0.0-0.5 N [facility] Basophils/100 leukocytes in Blood by Automated count 0.2 % 0.4-1.3 Below low normal [facility] Basophils [#/volume] in Blood by Automated count 0.1 U 0.0-0.2 N [facility] NUCLEATED RED BLOOD CELL 0 % [facility] NUCLEATED RED BLOOD CELL# 0 U [facility] Immature granulocytes [Presence] in Blood by Automated count 0-2 Above high normal [facility] Immature granulocytes [#/volume] in Blood by Automated count 0.5 U 0-0.1 Above high normal [facility] Manual Differential panel - Blood Manual Diff Added [facility] ID Date Data Source [id number] 11/01/2019 08:06:00 PM EST [facility] @11/01/192000: MANUAL DIFF added. RFLXG = DIFF. @11/01/192000: MANUAL DIFF added. RFLXG = DIFF. Name Value Range Interpretation Code Description Data Kristyn rce(s) Supporting Document(s) Urea nitrogen [Mass/volume] in Serum or Plasma 16 mg/dL 9-23 N [facility] Sodium [Moles/volume] in Serum or Plasma 138 mmol/L 132-146 [facility] Potassium [Moles/volume] in Serum or Plasma 4.0 mmol/L 3.5-5.5 [facility] Chloride [Moles/volume] in Serum or Plasma 104 mmol/L 99-109 [facility] Carbon dioxide, total [Moles/volume] in Serum or Plasma 26 mmol/L 20 -31 N [facility] Anion gap in Serum or Plasma 12 mmol/L 8-16 [facility] Glucose [Mass/volume] in Serum or Plasma 138 mg/dL 74-106 Above high normal [facility] Creatinine 0.8 mg/dL 0.5-1.1 [place] [facility] Glomerular filtration rate/1.73 sq M.pre dicted [Volume Rate/Area] in Serum or Plasma Greater Than 60 ABOVE 60 [facility] Alanine aminotransferase [Enzymatic acti vity/volume] in Serum or Plasma by With P-5'-P 24 U/L 10-49 [facility] ital Aspartate aminotransferase [Enzymatic ac tivity/volume] in Serum or Plasma by With P-5'-P 9 U/L 0-33 N [facility] pital Alkaline phosphatase [Enzymatic activity/volume] in Serum or Plasma 75 U/L 45-129 N [facility] Calcium [Mass/volume] in Serum or Plasma 8.9 mg/dL 8.5-10.1 N [facility] Bilirubin.total [Mass/volume] in Serum or Plasma 0.2 mg/dL 0.3-1.2 Below low normal [facility] Albumin [Mass/volume] in Serum or Plasma by Bromocresol purple (BCP) dye binding method 3.5 g/dL 3.2-4.8 N [facility] ital Protein [Mass/volume] in Serum or Plasma 7.3 g/dL 5.7-8.2 N [facility] ID Date Data Source [id number] 11/01/2019 08:01:00 PM EST [facility] @11/01/19 2001: MANUAL DIFF added. RFLXG = DIFF. @11/01/19 2001: MANUAL DIFF added. RFLXG = DIFF. Name Value Range Interpretation Code Description Data Kristyn rce(s) Supporting Document(s) Cells counted [#] 100 [facility] Neutrophils [#/volume] in Blood by Manual count 83 % 41-77 Above high normal [facility] Band form neutrophils [#/volume] in Blood by Manual count 2 % 0-5 N [facility] Lymphocytes [#/volume] in Blood by Manual count 14 % 14-46 N [facility] Monocytes [#/volume] in Blood by Manual count 1 % 4-12 B elow low normal [facility] Platelets [#/volume] in Blood by Estimate APPEARS NORMAL NORMAL [facility] Morphology [Interpretation] in Blood Narrative APPEARS NORMAL NORMAL [facility] ID Date Data Source [id number] 11/01/2019 08:06:00 PM EST [facility] @11/01/19 2001: MANUAL DIFF added. RFLXG = DIFF. @11/01/19 2001: MANUAL DIFF added. RFLXG = DIFF. Name Value Range Interpretation Code Description Data Kristyn rce(s) Supporting Document(s) Amylase [Enzymatic activity/volume] in Serum or Plasma 33 U/L 30- 118 N [facility] ID Date Data Source [id number] 11/01/2019 08:06:00 PM [facility] @11/01/19 2001: MANUAL DIFF added. RFLXG = DIFF. @11/01/19 2001: MANUAL DIFF added. RFLXG = DIFF. Name Value Range Interpretation Code Description Data Kristyn rce(s) Supporting Document(s) Lipase [Enzymatic activity/volume] in Serum or Plasma 136 U/L 73-3 93 [facility] ID Date Data Source [id number] 11/01/2019 08:06:00 PM [facility] @11/01/19 2001: MANUAL DIFF added. RFLXG = DIFF. @11/01/19 2001: MANUAL DIFF added. RFLXG = DIFF. Name Value Range Interpretation Code Description Data Kristyn rce(s) Supporting Document(s) Troponin I.cardiac [Mass/volume] in Serum or Plasma Less Than 0.015 0.00-0.09 [facility] Less than 0.09 NG/ML Negative0.10 - 0.77 NG/ML High Risk0.78 NG/ML or Greater PositiveThe WHO defined the cutoff (definition for diagnosis of [place])for this method as 0.78 ng/ml. ID Date Data Source [id number] 11/01/2019 07:23:00 PM [facility] ED Physician Documentation NAME: LIBAN FLOWER : 1980 AGE: 39 MR#: [id number] SERVICE DATE: 11/01/[address]: Mark Buckley MD PRIMARY CARE DR: Contreras Bond M.D. ROOM#: ADDENDUM Discharge Plan Admission/Discharge Dx Primary DC Diagnosis: viral URI ED Provider: Mark Buckley ED Status: Sign up Time Seen by Provider: 11/01/19 18:50 Triaged At: 11/01/19 17:57 Discharge Detail Disposition: Home, Self-Care Med Rec New Prescriptions: Continued escitalopram oxalate 10 mg tablet 10 mg PO HS RF: 0 benzonatate [Tessalon Perles] 100 mg capsule 100 mg PO TID PRN (Reason: cough) Qty: 30 RF: 2 prednisone 20 mg tablet See Rx Instructions PO QDAY Qty: 15 RF: 0 prednisone 20 mg tablet 60 mg PO QDAY Qty: 30 RF: 0 Advair HFA 115-21 mcg/actuation HFA aerosol inhaler 2 puffs IH BID Qty: 12 RF: 2 albuterol sulfate 2.5 mg /3 mL (0.083 %) solution for nebulization 2.5 mg IH QID PRN (Reason: shortness of breath or wheezing) Qty: 75 RF: 0 codeine-guaifenesin 1 0-100 mg/5 mL liquid 5 ml PO Q6HR PRN (Reason: cough) Qty: 120 RF: 0 albuterol sulfate [Ventolin HFA] 18 GM HFA aerosol inhaler 2 puff Inhalation Q4HPRN PRN (Reason: Wheezing) Qty: 1 RF: 0 hydroxyzine HCl 50 MG tablet 1 tab PO BID PRN (Reason: Wheezing) Qty: 60 RF: 5 montelukast 10 mg tablet 10 mg PO HS Qty: 90 RF: 3 Discharge Education Printouts: Upper Respiratory Infection (ED), Viral Syndrome (ED) Medications Medication reconciliation performed by provider at discharge: Yes Forms Forms Work Release: Work/School/Activ/Gym Release Follow Up Care/Instructions Diet/Activity/Wound Care..: drink plenty of fluids; follow up with your Supervisor [employer] in [place], as directed. Return to the Ed for any new or worsening symptoms. *Discharge Patient* Discharge Orders: Discharge Order (Routine); Ordered 11/01/19 Ordered By: Oscar De La Rosa Interventions Interventions: ED General Adult Last Done: 11/01/19 19:21 Addendum Addendum Note: The Hospitalist /Service was consulted, and it was felt that we should send a urine for Legionella and get a sputum culture, The patient will then follow up with her Supervisor [employer] in [place], and return to the ED as needed. Addended by: <Electronically signed by Oscar De La Rosa MD> 11/01/192125 Addendum Cosigners: D: HOWIE 11/01/192125 T: HOWIE 11/01/192125 CC: Contreras Bond M.D. HPI (Adult, General) General Chief Complaint: Multi system (Adult) Stated Complaint: DIZZY, FAINT FEELING Time Seen by Provider: 11/01/19 18:50 Source: patient Exam Limitations: no limitations History of Present Illness Narrative: cough with intermittent nausea and vomiting, and diarrhea X 5 weeks; patient seen by her own Doctor,seen in urgent care and seen in the ED 3 times in the past month; RP swabs adn CT abdomen and pelvishave all been diagnostic; patient ssays that she still has nausea, vomiting, diarrhea and coutg; denies fever, chills and body aches; patie nt says that she had diarrhea X 4-5 today; denies any recent antibiotics History of Present Illness Timing/Duration: intermittent Place Injury/Event Occurred (if applicable): home Past Medical History Past Medical History: Nursing Past Medical History Has Been Reviewed Allergies/Home Meds Allergies Allergy/AdvReac Type Severity Reaction Status Date / Time doxycycline AdvReac Mild nausea Verified 11/01/19 19:14 Home Medications Medication Instructions Recorded Con firmed Last Taken Type albuterol sulfate [Ventolin HFA] 2 puff INHALATION Q4HPRN PRN #1 ih 08/11/18 11/01/19 11/01/19 History hydroxyzine HCl 1 tab PO BID PRN #60 tab 10/09/18 11/01/19 10/31/19 History escitalopram oxalate 10 mg tablet 10 mg PO HS 05/21/19 11/01/19 10/31/19 History montelukast 10 mg tablet 10 mg PO HS #90 tab 09/29/19 11/01/19 11/01/19 Rx benzonatate 100 mg capsule 100 mg PO TID PRN #30 cap 10/20/19 11/01/19 10/26/19 Rx prednisone 20 mg tablet See Rx Instructions PO QDAY #15 tab 10/20/19 11/01/19 11/01/19 Rx fluticasone propionate 115 2 puffs IH BID #12 gm 10/23/19 11/01/19 11/01/19 Rx mcg-salmeterol 21 mcg/actuation HFA inhaler prednisone 20 mg tablet 60 mg PO QDAY #30 tab 10/23/19 11/01/19 11/01/19 Rx albuterol sulfate 2.5 mg IH QID PRN #75 ml 10/28/19 11/01/19 11/01/19 Rx codeine-guaifenesin 5 ml PO Q6HR PRN #120 ml 10/28/19 11/01/19 11/01/19 Rx PMH (from Triage) Patient Medical History PMH Reviewed/Updated as Needed: Yes PMH/PSH from Triage: Medical History Allergic rhinitis (Medical) Asthma (Acute Medical) Gall bladder disease (Inactive Medical) K82.9 Insomnia (Medical) Obese body habitus (Acute Medical) E66.9 Tobacco use (Acute Social Hx) Z72.0 2-3 per day Surgical History (Updated 02/24/19 @ 11:51 by Baton [place]) section (Surgical) x 2 Cholecystectomy (Surgical 06/07/16) Lap Dr Monroy History of - surgery (Surgical 1999) History of - surgery (Surgical) tubes x2 History of - surgery (Surgical) abliation Female History : No Hx Drug Resistant Infections Hx MRSA: (Methicillin-resistant Staphylococcus aureus): No Hx VRE (Vancomycin-resistant enterococci): No Hx C.Diff: No Hx CRKP: No Hx Other Resistant Infection?: No Isolation: Standard precautions Hx Recent Travel Out of the country within 10 days (where): No Hx Fever: No Hx Fever with a rash?: No Social History Does patient have suicidal/homicidal thoughts or ideation?: No Are you in a relationship with/Does anyone hit you, yell/swear at you, steal from you?: No Substance Use Hx Alcohol Use: Yes Hx Substance Use: No Hx Substance Use Treatment: No Tobacco Use Years smoked:: 15 Hx Chewing Tobacco Use: No Vaccination History Hx/Date of Tetanus, Diphtheria Vaccination: Yes Hx/Date of Influenza Vaccination: Yes Hx/Date of Pneumococcal Vaccination: No ROS Review of Systems Constitutional: Reports malaise; Denies fever and chills Eyes: Denies vision change ENT: Denies mouth pain, nasal pain, nasal discharge, nasal congestion, throat pain and hoarseness Respiratory: Reports cough; Denies SOB Cardiovascular: Denies chest pain and palpitations Gastrointestinal: Reports nausea, vomiting and diarrhea; Denies abdominal pain Genitourinary-Female: Denies dysuria, frequency and urgency Musculoskeletal: Denies neck pain, arm pain and back pain Skin/Breasts: Denies rash, hives and pruritus Neurologic: Denies weakness, headache and lightheadedness Physical Exam General Limitations: no limitations General appearance: alert, in no apparent distress and obese Head Head exam: Present atraumatic, normocephalic and normal inspection Eye Eye exam: Present normal apperance and EOMI ENT ENT exam: Present normal exam, normal orophraynx and mucous membranes moist Neck Neck exam: Present normal inspection, full ROM and supple Respiratory Respiratory exam: Present normal lung sounds bilaterally; Absent wheezes, rales, rhonchi and stridor Cardiovascular Cardiovascular Exam: Present regular rate and normal rhythm GI/Abdominal GI/Abdominal exam: Present soft and normal bowel sounds; Absent tenderness and guarding Extremities Exam Extremities exam: Present normal inspection and full ROM; Absent tenderness Back Exam Back exam: Present normal inspection; Absent full ROM and tenderness Neurological Exam Neurological exam: Present alert, oriented X3, normal gait and other (speech normal) Psychiatric Psychiatric exam: Present normal affect and normal mood Skin Skin exam: Present warm, dry, intact and normal color Vital Signs Vital Signs: Vital Signs 11/01/19 19:00 Temperature 98.1 F Pulse Rate 72 Respiratory Rate 20 Blood Pressure 121/69 O2 Sat by Pulse Oximetry 93 L Discharge Plan Admission/Discharge Dx ED Provider: Mark Buckley ED Status: Sign up Time Seen by Provider: 11/01/19 18:50 Triaged At: 11/01/19 17:57 Discharge Detail Med Rec New Prescriptions: No Action escitalopram oxalate 10 mg tablet 10 mg PO HS RF: 0 benzonatate [Tessalon Perles] 100 mg capsule 100 mg PO TID PRN (Reason: cough) Qty: 30 RF: 2 prednisone 20 mg tablet See Rx Instructions PO QDAY Qty: 15 RF: 0 prednisone 20 mg tablet 60 mg PO QDAY Qty: 30 RF: 0 Advair HFA 115-21 mcg/actuation HFA aerosol inhaler 2 puffs IH BID Qty: 12 RF: 2 albuterol sulfate 2.5 mg /3 mL (0.083 %) solution for nebulization 2.5 mg IH QID PRN (Reason: shortness of breath or wheezing) Qty: 75 RF: 0 codeine-guaifenesin 10-100 mg/5 mL liquid 5 ml PO Q6HR PRN (Reason: cough) Qty: 120 RF: 0 albuterol sulfate [Ventolin HFA] 18 GM HFA aerosol inhaler 2 puff Inhalation Q4HPRN PRN (Reason: Wheezing) Qty: 1 RF: 0 hydroxyzine HCl 50 MG tablet 1 tab PO BID PRN (Reason: Wheezing) Qty: 60 RF: 5 montelukast 10 mg tablet 10 mg PO HS Qty: 90 RF: 3 Report Signers: <Electronically signed by Oscar De La Rosa MD> Oscar De La Rosa MD 11/01/19 2106 Oscar De La Rosa MD SIGNATURE DA Report Cosigners: D: COUTH 11/01/191922 T: COUTH 11/01/191922 CC: Contreras Bond M.D. Name Value Range Interpretation Code Description Data Kristyn rce(s) Supporting Document(s) ID Date Data Source [id number] 10/28/2019 01:24:00 PM [facility] [address] [place] [address] [phone] NAME SEX PT STATUS ACCOUNT NUMBER LIBAN FLOWER [facility] ER [id number] ORDERING PHYSICIAN LOCATION MEDICAL RECORD NO. Mark Buckley MD ER [id number] ATTENDING PHYSICIAN DATE OF DATE OF EXAM/TIME Contreras Bond MD 1980 10/28/19 / 1136 TYPE / EXAM CT Max-facial with without REASON FOR EXAM persistent cough /sinus pressure/congestion COMPARISON: None FINDINGS: Mild mucoperiosteal thickening is seen in several ethmoid air cells and in the left maxillary sinus. Other visualized portions of the paranasal sinuses are essentially clear. However, the maxillary sinus ostia are occluded by soft tissue thickening in that region. A tom bullosa is seen on the left, but there is no associated nasal septal deviation. The middle meatus appears narrowed bilaterally 5 relative thickening of soft tissues. However, there is no associated abscess this region. No nasal polyp is seen. . Postcontrast images demonstrate no abnormal enhancement. This region, there is no finding that isconsistent with abscess. Fat planes in the parapharyngeal regions are preserved. IMPRESSION: 1. Mild mucoperiosteal thickening involving the ethmoid air cells and the left maxillary sinus. 2. Occlusion of the maxillary sinus ostia by soft tissue thickening. 3. No paranasal sinus abscess. No soft tissue abscess in the parapharyngeal regions. 4. Grossly normal-appearing salivary glands. Dose reduction was performed utilizing CARE dose with automated adjustment of the kV and MAS according to patient size, iterative reconstruction, automated exposure control, as well as adaptivedose shielding. Reported By Bert Diego MD on 10/28/19 1324 Signed By Bert Diego MD on 10/28/19 1333 Date Time CC: Contreras Bond M.D.; Bert Diego MD Techn: EBEBR Trans Dt/Tm: Trans by: DT Prt Dt/Tm: : Total DLP = 148.00 mGy-cm : Total Radiation Dose = 0.4588 mSv Lifetime Dose: 2.8898 mSv Name Value Range Interpretation Code Description Data Kristyn rce(s) Supporting Document(s) ID Date Data Source [id number] 10/28/2019 12:15:00 PM [facility] ED Physician Documentation NAME: LIBAN FLOWER : 1980 AGE: 39 MR#: [id number] SERVICE DATE: 10/28/[address]: Mark Buckley MD PRIMARY CARE DR: Contreras Bond M.D. ROOM#: [facility] (Adult, General) General Chief Complaint: Multi system (Adult) Stated Complaint: COUGH,VOMITING Resident LTC, travel outisde home, exposure to hot tubs:: No Time Seen by Provider: 10/28/19 10:59 Source: patient Exam Limitations: no limitations History of Present Illness Narrative: This a 39-year-old white female who is been seen several timesin our ED as well as by her primary care provider with a complaint of having cough congestion lasting approximately 5 weeks. She has been seen most recently in the ED 2 days ago by this examiner at which point time a CT of the chest with contrast was performed as well as d-dimer and flu swabs along with routine laboratory. She had peak flow assessment performed which was low normal at 420. Now for the last 36 to 48 hours the patient states that she has had nausea and vomiting mostly associated with cough but she has had some loose stools. Should be noted the patient has just recently finished a course of Levaquin prior to that she was reportedly on Zithromax. Room she is clearly still very congested and has a harsh congested cough but more so shehas a significant bout of nasal and sinus pressure and congestion appreciated. History of Present Illness Timing/Duration: getting worse and changing over time Place Injury/Event Occurred (if applicable): home Past Medical History Past Medical History: Nursing Past Medical History Has Been Reviewed Allergies/Home Meds Allergies Allergy/AdvReac Type Severity Reaction Status Date / Time doxycycline AdvReac Mild nausea Verified 10/28/19 10:57 Home Medications Medication Instructions Recorded Confirmed Last Taken Type albuterol sulfate [Ventolin HFA] 2 puff INHALATION Q4HPRN PRN #1 ih 08/11/18 10/28/19 10/26/19 History hydroxyzine HCl 1 tab PO BID PRN #60 tab 10/09/18 10/28/19 10/26/19 History escitalopram oxalate 10 mg tablet 10 mg PO HS 05/21/19 10/28/19 10/25/19 History montelukast 10 mg tablet 10 mg PO HS #90 tab 09/29/19 10/28/19 10/26/19 Rx benzonatate 100 mg capsule 100 mg PO TID PRN #30 cap 10/20/19 10/28/19 10/26/19 Rx prednisone 20 mg tablet See Rx Instructions PO QDAY #15 tab 10/20/19 10/28/19 10/26/19 Rx fluticasone propionate 115 2 puffs IH BID #12 gm 10/23/19 10/28/19 10/26/19 Rx mcg-salmeterol 21 mcg/actuation HFA inhaler prednisone 20 mg tablet 60 mg PO QDAY #30 tab 10/23/19 10/28/19 10/26/19 Rx albuterol sulfate 2.5 mg IH QID PRN #75 ml 10/28/19 Unknown Rx codeine-guaifenesin 5 ml PO Q6HR PRN #120 ml 10/28/19 Unknown Rx PMH (from Triage) Patient Medical History PMH Reviewed/Updated as Needed: Yes PMH/PSH from Triage: Medical History Allergic rhinitis (Medical) Asthma (Acute Medical) Gall bladder disease (Inactive Medical) K82.9 Insomnia (Medical) Obese body habitus (Acute Medical) E66.9 Tobacco use (Acute Social Hx) Z72.0 2-3 per day Surgical History (Updated 02/24/19 @ 11:51 by Baton [place]) section (Surgical) x 2 Cholecystectomy (Surgical 06/07/16) Lap Dr Monroy History of - surgery (Surgical 1999) History of - surgery (Surgical) tubes x2 History of - surgery (Surgical) abliation Female History : No Hx Drug Resistant Infections Hx MRSA: (Methicillin-resistant Staphylococcus aureus): No Hx VRE (Vancomycin-resistant enterococci): No Hx C.Diff: No Hx CRKP: No Hx Other Resistant Infection?: No Isolation: Standard precautions Hx Recent Travel Out of the country within 10 days (where): No Hx Fever: No Hx Fever with a rash?: No Social History Does patient have suicidal/homicidal thoughts or ideation?: No Are you in a relationship with/Does anyone hit you, yell/swear at you, steal from you?: No Substance Use Hx Alcohol Use: Yes Hx Substance Use: No Hx Substance Use Treatment: No Second Hand Smoke Exposure: Yes Smoking Status: Current every day smoker Tobacco Use Tobacco Products:: Less than 1/2 pk/day Years smoked:: 15 Hx Chewing Tobacco Use: No Vaccination History Hx/Date of Tetanus, Diphtheria Vaccination: Yes Hx/Date of Influenza Vaccination: Yes Hx/Date of Pneumococcal Vaccination: No ROS Review of Systems Constitutional: Reports weakness and malaise Eyes: Denies vision change, eye discharge/drng, redness, eye pain, descr of pain, conjunctiva inflammation, eyelid inflammation, eyelid issues, floaters, foreign body, r/t accident, contact lensuser, wears glasses and other ENT: Reports nasal congestion and post nasal drip Respiratory: Reports cough and SOB with excertion; Denies sputum Cardiovascular: Denies chest pain, palpitations, orthopnea, hypertension, paroxysmal noc dyspnea, edema, light headedness, dyspnea on exertion, syncope, known heart murmurs, leg cramps w/walking, pain in feet/toes at night, varicose veins and other Gastrointestinal: Reports nausea, vomiting and diarrhea; Denies abdominal pain, constipation and heartburn Genitourinary-Female: Denies dysuria, frequency, incontinence, stress incontinence, hematuria, retention, cloudy or smoky urine, nocturia, kidney stones, over-active bladder, urgency, rash or ulcers, h/o STDs and other Musculoskeletal: Denies neck pain, shoulder pain, arm pain, back pain, hand pain, leg pain, foot pain, thigh or calf cramps, muscle weakness, muscle tenderness, joint swelling, sciatica, muscle pain, joint pain and other Skin/Breasts: Denies rash, lesions, hives, pruritus, bruising, change in color, color changes w/cold, sensitivity to sun, change in hair/nails, breast pain, breast lump, nipple discharge, other,tightness, nodules or bumps and hair loss Neurologic: Denies weakness, numbness, headache, incoordination, change in speech, confusion, dizziness, vertigo, lightheadedness, seizures, muscle spasm, tremors, loss of consciousness, memory loss, sensitivity/pain in hands, sensitivity/pain in feet, abnormal gait, paresthesias and other Physical Exam General Physical Exam Narrative: This is a well-developed moderately obese white female who is awake alert oriented x3 and in no acute distress but certainly uncomfortable in the room secondary to her persistent cough and generalized malaise and now most likely mildly dehydrated state. Limitations: no limitations General appearance: alert and in no apparent distress Head Head exam: Present atraumatic, normocephalic and normal inspection Eye Eye exam: Present normal apperance, PERRL and EOMI; Absent scleral icterus and conjunctival injection ENT ENT exam: Present normal exam and normal orophraynx Neck Neck exam: Present normal inspection, full ROM and supple; Absent tenderness and meningismus Respiratory Respiratory exam: Present normal lung sounds bilaterally and other (Moderately congested cough); Absent respiratory di stress, wheezes, rales, rhonchi, stridor and accessory muscle use Cardiovascular Cardiovascular Exam: Present regular rate and normal rhythm GI/Abdominal GI/Abdominal exam: Present Abd soft, bowel sounds present all quadrents Rectal Rectal exam: Present deferred Extremities Exam Extremities exam: Present normal inspection and Full ROM without tenderness, capillary refill brisk;Absent tenderness, pedal edema and joint swelling Back Exam Back exam: Present normal inspection and full ROM; Absent tenderness, CVA tenderness (R) and CVA tenderness (L) Neurological Exam Neurological exam: Present alert, oriented X3 and CN II-XII intact Psychiatric Psychiatric exam: Present normal affect and normal mood; Absent depressed, agitated, anxious and flat affect Skin Skin exam: Present warm, dry, intact and normal color; Absent rash and cyanosis Vital Signs Vital Signs: Vital Signs 10/28/19 10:37 10/28/19 13:19 Temperature 96.7 F L 97.8 F Pulse Rate 102 H 76 Respiratory Rate 16 18 Blood Pressure 116/64 102/60 O2 Sat by Pulse Oximetry 94 L 94 L MDM (comprehensive) Lab Data Labs: 10/28/19 11:42 10/28/19 11:42 Laboratory Results Last 24 hours 10/28/19 11:42: WBC 15.5 H, RBC 4.23, Hgb 12.8, Hct 38.6, MCV 91.3, MCH 30.3, MCHC 33.2, RDW 13, PltCount 367, MPV 8.6 L, Immature Gran % (Auto) 1.0, Neut % (Auto) 57.4, Lymph % (Auto) 32.9, Johnson % (Auto) 6.3, Eos % (Auto) 1.9, Baso % (Auto) 0.5, Lymph # (Auto) 5.1 H, Abs Immat Gran (auto) 0.2 H, Add Manual Diff Manual diff added, Total Counted 100, Neutrophils (Manual) 58, Absolute Neutrophils 8.9 H, Lymphocytes (Manual) 36, Monocytes (Manual) 4, Monocytes # 1.0, Eosinophils (Manual) 1, Absolute Eosinophils 0.3, Basophils (Manual) 1, Absolute Basophils 0.1, Platelet Estimate Appears normal, RBC Morphology Appears normal, ESR Westergren 12 10/28/19 11:42: Sodium 140, Potassium 3.2 L, Chloride 108, Carbon Dioxide 24, Anion Gap 11, BUN 15, Creatinine 0.8, GFR Calculation Greater than 60, Glucose 119 H, Calcium 8.3 L, Total Bilirubin 0.2 L, AST 6, ALT 20, Alkaline Phosphatase 76, Serum Total Protein 6.8, Albumin 3.6 Radiology Data Radiology results: report reviewed Radiology impressions: CT of the sinuses shows no sign of abscesses or tumors. She does have significant amount of inflammation and thickening of the mucoperiosteal mucosa as well as in the left maxillary sinus. The patient also has thickening of several ethmoid air cells. No nasal polyps are identified. Medical Decision Making Free Text/Narative:: After 2 L of fluids the patient is feeling significantly improved at this pointtime. Because of her harsh cough and and suggestion of having some mild expiratory wheezes we are going to prescribe a nebulizer for her. We will give her that to take home. We will call in for the albuterol nebs. She is going to follow-up with Dr. Bond who is her primary care provider. Discharge Plan Admission/Discharge Dx Primary DC Diagnosis: 1- Post viral cough, 2postinfectious asthma, 3sinusitis ED Provider: Mark Buckley ED Status: Ready for Discharge Time Seen by Provider: 10/28/19 10:59 Triaged At: 10/28/19 10:37 Condition Condition: Good Discharge Detail Disposition: Home, Self-Care Med Rec New Prescriptions: New albuterol sulfate 2.5 mg /3 mL (0.083 %) solution for nebulization 2.5 mg IH QID PRN (Reason: shortness of breath or wheezing) Qty: 75 RF: 0 codeine-guaifenesin 10-100 mg/5 mL liquid 5 ml PO Q6HR PRN (Reason: cough) Qty: 120 RF: 0 Continued escitalopram oxalate 10 mg tablet 10 mg PO HS RF: 0 benzonatate [Tessalon Perles] 100 mg capsule 100 mg PO TID PRN (Reason: cough) Qty: 30 RF: 2 prednisone 20 mg tablet See Rx Instructions PO QDAY Qty: 15 RF: 0 prednisone 20 mg tablet 60 mg PO QDAY Qty: 30 RF: 0 Advair HFA 115-21 mcg/actuation HFA aerosol inhaler 2 puffs IH BID Qty: 12 RF: 2 albuterol sulfate [Ventolin HFA] 18 GM HFA aerosol inhaler 2 puff Inhalation Q4HPRN PRN (Reason: Wheezing) Qty: 1 RF: 0 hydroxyzine HCl 50 MG tablet 1 tab PO BID PRN (Reason: Wheezing) Qty: 60 RF: 5 montelukast 10 mg tablet 10 mg PO HS Qty: 90 RF: 3 Follow Up Visit/Referrals: Contreras Bond M.D. [Primary Care Provider] - (Call for appointment for follow-up in 48 to 72 hours) Discharge Problem: Post- infection bronchospasm, Sinusitis chronic, ethmoidal Medications Medication reconciliation performed by provider at discharge: Yes Forms Forms Work Release: Work/School/Activ/Gym Release Follow Up Care/Instructions Diet/Activity/Wound Care..: As we discussed your CT scan today shows what appears to be mild sinusitis without any sign of abscess or tumors or any other more dangerous entities. Certainly still your cough and wheezing is secondary most likely to be postinfectious bronchospasms and to that end we have prescribed a nebulizer which you should use 4 times a day as needed. You additionally should continue all of your other medications. We lastly did prescribe Robitussin with codeine for your cough 1 teaspoon every 6 hours should suffice. Lastly you could obtain a Anel pot which will help with some of the sinus congestion and helped you to drain your sinuses. Those can be obtained at any pharmacy and they are [id number]. We strongly recommend follow-up with Dr. Contreras Bond this week and pursue referral to a reconciling clerk for further evaluation that we cannot perform here in the emergency room. If it anytime you feel that you are becoming acutely more ill you are always welcome to return to the ED for reevaluation and treatment on an emergency basis realizing that we do not have a lung specialist here at [facility] *Discharge Patient* Discharge Orders: Discharge Order (Routine); Ordered 10/28/19 Ordered By: Mark Buckley Interventions Interventions: ED General Adult Last Done: 10/28/19 10:45 Report Signers: <Electronically signed by Mark Buckley > Mark Buckley 10/28/19 1419 Mark Buckley DA Report Cosigners: D: DOYLE 10/28/19 1215 T: DOYLE 10/28/19 1215 CC: Contreras Bond M.D. Name Value Range Interpretation Code Description Data Kristyn rce(s) Supporting Document(s) ID Date Data Source [id number] 10/28/2019 12:12:00 PM EST [facility] @10/28/19 1150: MANUAL DIFF added. RFLXG = DIFF. @10/28/19 1150: MANUAL DIFF added. RFLXG = DIFF. @10/28/19 1150: MANUAL DIFF added. RFLXG = DIFF. Name Value Range Interpretation Code Description Data Kristyn rce(s) Supporting Document(s) Urea nitrogen [Mass/volume] in Serum or Plasma 15 mg/dL 9-23 N [facility] Sodium [Moles/volume] in Serum or Plasma 140 mmol/L 132-146 N [facility] Potassium [Moles/volume] in Serum or Plasma 3.2 mmol/L 3.5-5.5 Below low normal [facility] Chloride [Moles/volume] in Serum or Plasma 108 mmol/L 99-109 N [facility] Carbon dioxide, total [Moles/volume] in Serum or Plasma 24 mmol/L 20 -31 N [facility] Anion gap in Serum or Plasma 11 mmol/L 8-16 [facility] Glucose [Mass/volume] in Serum or Plasma 119 mg/dL 74-106 Above high normal [facility] Creatinine 0.8 mg/dL 0.5-1.1 [facility] Glomerular filtration rate/1.73 sq M.pre dicted [Volume Rate/Area] in Serum or Plasma Greater Than 60 ABOVE 60 [facility] Alanine aminotransferase [Enzymatic acti vity/volume] in Serum or Plasma by With P-5'-P 20 U/L 10-49 N [facility] Aspartate aminotransferase [Enzymatic ac tivity/volume] in Serum or Plasma by With P-5'-P 6 U/L 0-33 N [facility] pital Alkaline phosphatase [Enzymatic activity/volume] in Serum or Plasma 76 U/L 45-129 N [facility] Calcium [Mass/volume] in Serum or Plasma 8.3 mg/dL 8.5-10.1 Below low normal [facility] Bilirubin.total [Mass/volume] in Serum or Plasma 0.2 mg/dL 0.3-1.2 Below low normal [facility] Albumin [Mass/volume] in Serum or Plasma by Bromocresol purple (BCP) dye binding method 3.6 g/dL 3.2-4.8 N [facility] Protein [Mass/volume] in Serum or Plasma 6.8 g/dL 5.7-8.2 N [facility] ID Date Data Source [id number] 10/28/2019 12:27:00 PM EST [facility] @10/28/19 1150: MANUAL DIFF added. RFLXG = DIFF. @10/28/19 1150: MANUAL DIFF added. RFLXG = DIFF. @10/28/19 1150: MANUAL DIFF added. RFLXG = DIFF. Name Value Range Interpretation Code Description Data Kristyn rce(s) Supporting Document(s) Leukocytes [#/volume] in Blood by Automated count 15.5 10*3/uL 4.45-10.71 Above high normal [facility] Erythrocytes [#/volume] in Blood by Automated count 4.23 10*6/uL 4.20 -5.40 N [facility] Hemoglobin [Moles/volume] in Blood 12.8 g/dL 10.7-15.4 N [facility] Hematocrit [Volume Fraction] of Blood by Automated count 38.6 % 3 7-47 N [facility] Erythrocyte mean corpuscular volume [Ent itic volume] in Cord blood by Automated count 91.3 fL 80-96 N [facility] Erythrocyte mean corpuscular hemoglobin [Entitic mass] by Automated count 30.3 pg 27-[facility] Eryth[facility] mean corpuscular hemoglobin concentration [Mass/volume] in Cord blood 33.2 g/dL 33-37 [facility] Erythrocyte distribution width [Entitic volume] by Automated count 13 % 11-15 N [facility] Platelets [#/volume] in Blood by Automated count 367 10*3/uL 130-472 N [facility] Platelet mean volume [Entitic volume] in Blood 8.6 fL 9.1-13. 1 Below low normal [facility] Neutrophils/100 leukocytes in Blood by Automated count 57.4 % 41- 77 N [facility] Neutrophils [#/volume] in Blood by Automated count 8.9 U 1.7-7.6 Above high normal [facility] Lymphocytes/100 leukocytes in Blood by Automated count 32.9 % 14- 46 N [facility] Lymphocytes [#/volume] in Blood by Automated count 5.1 U 0.6-4.6 Above high normal [facility] @DO DIFF!!!! Monocytes/100 leukocytes in Blood by Automated count 6.3 % 4-12 N [facility] Monocytes [#/volume] in Blood by Automated count 1.0 U 0.2-1.2 N [facility] Eosinophils/100 leukocytes in Blood by Automated count 1.9 % 0-7 N [facility] Eosinophils [#/volume] in Blood by Automated count 0.3 U 0.0-0.5 N [facility] Basophils/100 leukocytes in Blood by Automated count 0.5 % 0.4-1 .3 N [facility] Basophils [#/volume] in Blood by Automated count 0.1 U 0.0-0.2 N [facility] NUCLEATED RED BLOOD CELL 0 % [facility] NUCLEATED RED BLOOD CELL# 0 U [facility] Immature granulocytes [Presence] in Blood by Automated count 0-2 N [facility] Immature granulocytes [#/volume] in Blood by Automated count 0.2 U 0-0.1 Above high normal [facility] Manual Differential panel - Blood Manual Diff Added [facility] ID Date Data Source [id number] 10/28/2019 12:27:00 PM EST [facility] @10/28/19 1150: MANUAL DIFF added. RFLXG = DIFF. @10/28/19 1150: MANUAL DIFF added. RFLXG = DIFF. @10/28/19 1150: MANUAL DIFF added. RFLXG = DIFF. Name Value Range Interpretation Code Description Data Kristyn rce(s) Supporting Document(s) Cells counted [#] 100 [facility] Neutrophils [#/volume] in Blood by Manual count 58 % 41-77 N [facility] Lymphocytes [#/volume] in Blood by Manual count 36 % 14-46 N [facility] Monocytes [#/volume] in Blood by Manual count 4 % 4-12 N [facility] Eosinophils [#/volume] in Blood by Manual count 1 % 0-7 N [facility] Basophils [#/volume] in Blood by Manual count 1 % 0-2 N [facility] Platelets [#/volume] in Blood by Estimate APPEARS NORMAL NORMAL [facility] Morphology [Interpretation] in Blood Narrative APPEARS NORMAL NORMAL [facility] ID Date Data Source [id number] 10/28/2019 12:27:00 PM EST [facility] @10/28/19 1150: MANUAL DIFF added. RFLXG = DIFF. @10/28/19 1150: MANUAL DIFF added. RFLXG = DIFF. @10/28/19 1150: MANUAL DIFF added. RFLXG = DIFF. Name Value Range Interpretation Code Description Data Kristyn rce(s) Supporting Document(s) Erythrocyte sedimentation rate by Westergren method 12 mm/hr 0-20 N [facility] @Reenter manual test result: 12@by Sylvia Chambers at 10/28/19 1227. ID Date Data Source [id number] 10/26/2019 03:34:00 PM [facility] [address] [place] [address] [phone] NAME SEX PT STATUS ACCOUNT NUMBER LIBAN FLOWER [facility] ER [id number] ORDERING PHYSICIAN LOCATION MEDICAL RECORD NO. Mark Buckley MD ER [id number] ATTENDING PHYSICIAN DATE OF DATE OF EXAM/TIME Contreras Bond MD 1980 10/26/19 / 1410 TYPE / EXAM CT Thorax with contrast REASON FOR EXAM shortness of breath/ chest heaviness COMPARISON: Chest x-ray dated October 20, 2019 TECHNIQUE: Contrast Enhanced Multidetector-Row Chest Computed Tomography images were acquired. FINDINGS: Pulmonary Parenchyma and Airways: Plate atelectasis is seen in the left midlung, anteriorly. This is new finding compared to x-ray dated October 20. Lungs otherwise essentially clear. There is no focal pulmonary consolidation, nodule, or mass. No pulmonary vascular congestion is seen. Pleural Space: No pleural fluid or thickening is present. Heart and Pericardium: The cardiac chambers are normal in size. No pericardial fluid or thickening is present. Mediastinum and Rosita: No mediastinal mass is present. No enlarged lymph nodes are present. Thoracic Vessels: No vascular abnormality is present. Osseous Structures and Chest Wall: No pathologic osseous or soft- tissue process is present. Upper Abdomen: The patient is remotely post cholecystectomy. The remainder of the upper abdomen is grossly unremarkable. Additional findings: None. IMPRESSION: 1. Platelike atelectasis in the left upper lobe, anteriorly. 2. Lungs otherwise essentially clear. No focal pulmonary consolidation or pleural effusion. 3. No pulmonary mass, nodule, or adenopathy. Dose reduction was performed utilizing CARE dose with automated adjustment of the kV and MAS according to patient size, iterative reconstruction, automated exposure control, as well as adaptivedose shielding. Reported By Bert Diego MD on 10/26/19 1534 Signed By Bert Diego MD on 10/26/19 1544 Date Time CC: Contreras Bond M.D.; Bert Diego MD Techn: CUMME Trans Dt/Tm: Trans by: DT Prt Dt/Tm: : Total DLP = 187.00 mGy-cm : Total Radiation Dose = 2.4310 mSv Lifetime Dose: 2.4310 mSv Name Value Range Interpretation Code Description Data Kristyn rce(s) Supporting Document(s) ID Date Data Source [id number] 10/26/2019 02:27:00 PM [facility] FilmArray Respiratory Panel is a Multipl exed NAAT-PCR testNORMAL VALUE FOR ALL 20 PATHOGENS IS "NOT DETECTED".The FilmArray RP panel detects Influenza A H1,H3 [id number] H1 viruses,Influenza B virus, Respiratory syncytialvirus, Human metapneumovirus,Parainfluenza virus 1,2,3, and4, Adenovirus,Rhino/Enterovirus,Coronavirus HKU 1, Nl63,OC43, and 229E,Bordetella pertussis, Bordetellaparapertussis, Mycoplasma pneumoniae and Chlamydiapneumoniae.THIS TEST HAS NOT BEEN EVALUATED FOR USE WITH SPECIMENSOTHER THAN NASOPHARYNGEAL SWAB SPECIMENS.THE PERFORMANCE OF THIS TEST HAS NOT BEEN ESTABLISHED FORPATIENTS WITHOUT SIGNS AND SYMPTOMS OF RESPIRATORYINFECTION.RESULTS FROM THIS TEST MUST BE CORRELATED WITH CLINICALHISTORY, EPIDEMIOLOGICAL DATA , AND OTHER DATA AVAILABLE TOTHE CLINICIAN EVALUATING THE PATIENT.THE PERFORMANCE OF THE FilmARRAY RP HAS NOT BEEN ESTABLISHEDIN INDIVIDUALS WHO RECEIVED INFLUENZA VACCINE. RECENTADMINISTRATION OF A NASAL INFLUENZA VACCINE MAY CAUSE AFALSE POSITIVE RESULT FOR INFLUENZA A AND/OR B.NEGATIVE RESULTS SHOULD NOT BE USED THE SOLE BASIS FORDIAGNOSIS, TREATMENT, OR OTHER MANAGEMENT DECISIONS.NEGATIVE RESULTS IN THE SETTING OF A RESPIRATORY ILLNESSMAYBE DUE TO INFECTION WITH PATHOGENS THAT ARE NOT DETECTEDBY THIS TEST OR LOWER RESPIRATORY TRACT INFECTION THAT ISNOT DETECTED BY A NASOPHARYNGEAL SWAB SPECIMEN.No Organisms Detected Name Value Range Interpretation Code Description Data Kristyn rce(s) Supporting Document(s) ID Date Data Source [id number] 10/26/2019 01:42:00 PM [facility] Name Value Range Interpretation Code Description Data Kristyn rce(s) Supporting Document(s) Creatine kinase [Enzymatic activity/volume] in Serum or Plasma 37 U /L 33-211 N [facility] Creatine kinase.MB [Enzymatic activity/volume] in Serum or P lasma 1.0 ng/mL 0.0-5.0 [facility] @Report as less than lower limit Chemistry studies (set) 2.7 % [facility] ID Date Data Source [id number] 10/26/2019 01:42:00 PM [facility] Name Value Range Interpretation Code Description Data Kristyn rce(s) Supporting Document(s) Troponin I.cardiac [Mass/volume] in Serum or Plasma Less Than 0.015 0.00-0.09 [facility] Less than 0.09 NG/ML Negative0.10 - 0.77 NG/ML High Risk0.78 NG/ML or Greater PositiveThe WHO defined the cutoff (definition for diagnosis of [place])for this method as 0.78 ng/ml. ID Date Data Source [id number] 10/26/2019 01:13:00 PM [facility] Is test to R/O PE, DVT or VTE? Y @10/26/19 1257: MANUAL DIFF added. RFLXG = DIFF. @10/26/19 1257: MANUAL DIFF added. RFLXG = DIFF. @10/26/19 1257: MANUAL DIFF added. RFLXG = DIFF. Name Value Range Interpretation Code Description Data Kristyn rce(s) Supporting Document(s) Urea nitrogen [Mass/volume] in Serum or Plasma 15 mg/dL 9-23 N [facility] Sodium [Moles/volume] in Serum or Plasma 139 mmol/L 132-146 [facility] Potassium [Moles/volume] in Serum or Plasma 4.0 mmol/L 3.5-5.5 [facility] Chloride [Moles/volume] in Serum or Plasma 106 mmol/L 99-109 [facility] Carbon dioxide, total [Moles/volume] in Serum or Plasma 25 mmol/L 20 -31 [facility] Anion gap in Serum or Plasma 12 mmol/L 8-16 [facility] Glucose [Mass/volume] in Serum or Plasma 114 mg/dL 74-106 Above high normal [facility] Creatinine 0.8 mg/dL 0.5-1.1 [facility] Glomerular filtration rate/1.73 sq M.pre dicted [Volume Rate/Area] in Serum or Plasma Greater Than 60 ABOVE 60 [facility] Alanine aminotransferase [Enzymatic acti vity/volume] in Serum or Plasma by With P-5'-P 22 U/L 10-49 [facility] ital Aspartate aminotransferase [Enzymatic ac tivity/volume] in Serum or Plasma by With P-5'-P 6 U/L 0-33 [facility] pital Alkaline phosphatase [Enzymatic activity/volume] in Serum or Plasma 85 U/L 45-129 [facility] Calcium [Mass/volume] in Serum or Plasma 8.9 mg/dL 8.5-10.1 [facility] Bilirubin.total [Mass/volume] in Serum or Plasma 0.2 mg/dL 0.3-1.2 Below low normal [facility] Albumin [Mass/volume] in Serum or Plasma by Bromocresol purple (BCP) dye binding method 3.8 g/dL 3.2-4.8 [facility] ital Protein [Mass/volume] in Serum or Plasma 7.6 g/dL 5.7-8.2 [facility] ID Date Data Source [id number] 10/26/2019 01:28:00 PM EST [facility] Is test to R/O PE, DVT or VTE? Y @10/26/19 1257: MANUAL DIFF added. RFLXG = DIFF. @10/26/19 1257: MANUAL DIFF added. RFLXG = DIFF. @10/26/19 1257: MANUAL DIFF added. RFLXG = DIFF. Name Value Range Interpretation Code Description Data Kristyn rce(s) Supporting Document(s) Fibrin D-dimer [Units/volume] in Platelet poor plasma Less Than 0.1 9 0.0-0.50 N [facility] @Report as less than 0.19@ Has QC been r un for this test today?PLEASE NOTE: THIS TEST WAS PERFORMED USING A PARTICLE-ENHANCED, IMMUNOTURBIDIMETRIC ASSAY AND HAS A SINGLE,CLINICALLY DERIVED CUTOFF OF 0.50 MG/L. ID Date Data Source [id number] 10/26/2019 01:36:00 PM EST [facility] Is test to R/O PE, DVT or VTE? Y @10/26/19 1257: MANUAL DIFF added. RFLXG = DIFF. @10/26/19 1257: MANUAL DIFF added. RFLXG = DIFF. @10/26/19 1257: MANUAL DIFF added. RFLXG = DIFF. Name Value Range Interpretation Code Description Data Kristyn rce(s) Supporting Document(s) Leukocytes [#/volume] in Blood by Automated count 16.2 10*3/uL 4.45-10.71 Above high normal [facility] Erythrocytes [#/volume] in Blood by Automated count 4.30 10*6/uL 4.20 -5.40 N [facility] Hemoglobin [Moles/volume] in Blood 12.9 g/dL 10.7-15.4 [facility] Hematocrit [Volume Fraction] of Blood by Automated count 39.0 % 3 7-47 N [facility] Erythrocyte mean corpuscular volume [Ent itic volume] in Cord blood by Automated count 90.7 fL 80-96 N [facility] ital Erythrocyte mean corpuscular hemoglobin [Entitic mass] by Automated count 30.0 pg 27-31 [facility] Erythrocyte mean corpuscular hemoglobin concentration [Mass/volume] in Cord blood 33.1 g/dL 33-37 N [facility] Erythrocyte distribution width [Entitic volume] by Automated count 13 % 11-15 [facility] Platelets [#/volume] in Blood by Automated count 416 10*3/uL 130-472 N [facility] Platelet mean volume [Entitic volume] in Blood 8.6 fL 9.1-13. 1 Below low normal [facility] Neutrophils/100 leukocytes in Blood by Automated count 86.4 % 41-77 Above high normal [facility] Neutrophils [#/volume] in Blood by Automated count 14.0 U 1.7-7.6 Above high normal [facility] Lymphocytes/100 leukocytes in Blood by Automated count 9.6 % 14-46 Below low normal [facility] Lymphocytes [#/volume] in Blood by Automated count 1.6 U 0.6-4.6 N [facility] Monocytes/100 leukocytes in Blood by Automated count 2.5 % 4-12 Below low normal [facility] Monocytes [#/volume] in Blood by Automated count 0.4 U 0.2-1.2 N [facility] Eosinophils/100 leukocytes in Blood by Automated count 0.1 % 0-7 N [facility] Eosinophils [#/volume] in Blood by Automated count 0.0 U 0.0-0.5 N [facility] Basophils/100 leukocytes in Blood by Automated count 0.2 % 0.4-1.3 Below low normal [facility] Basophils [#/volume] in Blood by Automated count 0.0 U 0.0-0.2 N [facility] NUCLEATED RED BLOOD CELL 0 % [facility] NUCLEATED RED BLOOD CELL# 0 U [facility] Immature granulocytes [Presence] in Blood by Automated count 0-2 N [facility] Immature granulocytes [#/volume] in Blood by Automated count 0.2 U 0-0.1 Above high normal [facility] Manual Differential panel - Blood Manual Diff Added [facility] ID Date Data Source [id number] 10/26/2019 01:13:00 PM [facility] Is test to R/O PE, DVT or VTE? Y @10/26/19 1257: MANUAL DIFF added. RFLXG = DIFF. @10/26/19 1257: MANUAL DIFF added. RFLXG = DIFF. @10/26/19 1257: MANUAL DIFF added. RFLXG = DIFF. Name Value Range Interpretation Code Description Data Kristyn rce(s) Supporting Document(s) C reactive protein [Mass/volume] in Serum or Plasma 6.1 mg/L 0.0-5.0 Above high normal [facility] ID Date Data Source [id number] 10/26/2019 01:36:00 PM [facility] Is test to R/O PE, DVT or VTE? Y @10/26/19 1257: MANUAL DIFF added. RFLXG = DIFF. @10/26/19 1257: MANUAL DIFF added. RFLXG = DIFF. @10/26/19 1257: MANUAL DIFF added. RFLXG = DIFF. Name Value Range Interpretation Code Description Data Kristyn rce(s) Supporting Document(s) Cells counted [#] 100 [facility] Neutrophils [#/volume] in Blood by Manual count 86 % 41-77 Above high normal [facility] Lymphocytes [#/volume] in Blood by Manual count 11 % 14-46 Below low normal [facility] Monocytes [#/volume] in Blood by Manual count 3 % 4-12 B elow low normal [facility] Platelets [#/volume] in Blood by Estimate APPEARS NORMAL NORMAL [facility] Morphology [Interpretation] in Blood Narrative APPEARS NORMAL NORMAL [facility] ID Date Data Source [id number] 10/26/2019 01:36:00 PM [facility] Is test to R/O PE, DVT or VTE? Y @10/26/19 1257: MANUAL DIFF added. RFLXG = DIFF. @10/26/19 1257: MANUAL DIFF added. RFLXG = DIFF. @10/26/19 1257: MANUAL DIFF added. RFLXG = DIFF. Name Value Range Interpretation Code Description Data Kristyn rce(s) Supporting Document(s) Erythrocyte sedimentation rate by Westergren method 11 mm/hr 0-20 N [facility] @Reenter manual test result: 11@by Elliott Martinez at 10/26/19 1336. ID Date Data Source [id number] 10/26/2019 12:39:00 PM [facility] ED Physician Documentation NAME: LIBAN FLOWER : 1980 AGE: 39 MR#: [id number] SERVICE DATE: 10/26/[address]: Mark Buckley MD PRIMARY CARE DR: Contreras Bond M.D. ROOM#: HPI (Adult, General) General Chief Complaint: Chest pain Stated Complaint: CHEST TIGHTNESS,LIGHT HEADED Resident LTC, travel outisde home, exposure to hot tubs:: No Time Seen by Provider: 10/26/19 12:20 Source: patient Exam Limitations: no limitations History of Present Illness Narrative: Is a 39-year-old moderately obese white female comes in complaining of having persistent shortness of breath and just generally not feeling well since September of this year. She has been seen in the ED as well as at 2 walk-in clinics and twice by her primary care provider and has been on multiple antibiotics, multiple doses of steroids, who still feels short of breath with a test heaviness and tightness. She states she has had URI symptoms withcough and congestion also. She does have a history of asthma. She denies actual chest pain at any point time just states that her chest feels tight and heavy. She currently is on 60 mg a day of prednisone and has been recently on Levaquin as an antibiotic. Prior to that she was actually on Zithromax. Allergies/Home Meds Allergies Allergy/AdvReac Type Severity Reaction Status Date / Time doxycycline AdvReac Mild nausea Verified 10/26/19 11:45 Home Medications Medication Instructions Recorded Confirmed Last Taken Type albuterol sulfate [Ventolin HFA] 2 puff INHALATION Q4HPRN PRN #1 ih 08/11/18 10/26/19 10/26/19 History hydroxyzine HCl 1 tab PO BID PRN #60 tab 10/09/18 10/26/19 10/26/19 History escitalopram oxalate 10 mg tablet 10 mg PO HS 05/21/19 10/26/19 10/25/19 History montelukast 10 mg tablet 10 mg PO HS #90 tab 09/29/19 10/26/19 10/26/19 Rx benzonatate 100 mg capsule 100 mg PO TID PRN #30 cap 10/20/19 10/26/19 10/26/19 Rx prednisone 20 mg tablet See Rx Instructions PO QDAY #15 tab 10/20/19 10/26/19 10/26/19 Rx fluticasone propionate 115 2 puffs IH BID #12 gm 10/23/19 10/26/19 10/26/19 Rx mcg-salmeterol 21 mcg/actuation HFA inhaler prednisone 20 mg tablet 60 mg PO QDAY #30 tab 10/23/19 10/26/19 10/26/19 Rx PMH (from Triage) Patient Medical History PMH Reviewed/Updated as Needed: Yes Pertinent Medical HX: ASTHMA, depression Pertinent Surgical HX: C-SECTIONS D C ABLATION, MYRINGOTOMY X2 RIGHT EAR. Female History LMP:: Not started yet : No Lactating mother:: No Hx Drug Resistant Infections Hx MRSA: (Methicillin-resistant Staphylococcus aureus): No Hx VRE (Vancomycin-resistant enterococci): No Hx C.Diff: No Hx CRKP: No Hx Other Resistant Infection?: No Isolation: Standard precautions Hx Recent Travel Out of the country within 10 days (where): No Hx Fever: No Hx Fever with a rash?: No Social History Does patient have suicidal/homicidal thoughts or ideation?: No Are you in a relationship with/Does anyone hit you, yell/swear at you, steal from you?: No Substance Use Hx Alcohol Use: Yes Hx Substance Use: No Hx Substance Use Treatment: No Second Hand Smoke Exposure: Yes Smoking Status: Current every day smoker Tobacco Use Tobacco Products:: Less than 1/2 pk/day Years smoked:: 15 Hx Chewing Tobacco Use: No Vaccination History Hx/Date of Tetanus, Diphtheria Vaccination: Yes Hx/Date of Influenza Vaccination: Yes Hx/Date of Pneumococcal Vaccination: No Immunizations Up to Date: Yes ROS Review of Systems Constitutional: Reports weakness and malaise Eyes: Denies vision change, eye discharge/drng, redness, eye pain, descr of pain, conjunctiva inflammation, eyelid inflammation, eyelid issues, floaters, foreign body, r/t accident, contact lensuser, wears glasses and other ENT: Denies mouth pain, mouth swelling, dental pain, dry mouth, bleeding gums, ear pain, hearing loss, tinnitis, ear discharge, nasal pain, nasal discharge, nasal congestion, post nasal drip, epistaxis, throat pain, throat swelling, hoarseness, constant throat clearing, pain upon swallowing,recent head trauma, recent airplane travel, recent swimming/diving, uses hearing aid/ear plugs, painworse with motion, prolonged use of topical meds and other Respiratory: Reports cough and SOB w/exertion rest; Denies sputum Cardiovascular: Reports other (Continuation of chest heaviness and tightness but not pain has been persistent intermittently since September.); Denies chest pain and palpitations Gastrointestinal: Denies No Symptoms/Complaints, nausea, vomiting, abdominal pain, diarrhea, constipation, heartburn, reflux/regurg, frequent belching, hemorrhoids, hematemesis, black tarry stools, melena, hematochezia, coffee grounds emesis, stomach pain relieved by food, hx of jaundice and other Muscul oskeletal: Denies neck pain, shoulder pain, arm pain, back pain, hand pain, leg pain, foot pain, thigh or calf cramps, muscle weakness, muscle tenderness, joint swelling, sciatica, muscle pain, joint pain and other Skin/Breasts: Denies rash, lesions, hives, pruritus, bruising, change in color, color changes w/cold, sensitivity to sun, change in hair/nails, breast pain, breast lump, nipple discharge, other,tightness, nodules or bumps and hair loss Neurologic: Denies weakness, numbness, headache, incoordination, change in speech, confusion, dizziness, vertigo, lightheadedness, seizures, muscle spasm, tremors, loss of consciousness, memory loss, sensitivity/pain in hands, sensitivity/pain in feet, abnormal gait, paresthesias and other Psychiatric: Denies No Symptoms/Complaints, anxiety, depression, auditory hallucinations, visual hallucinations, suicidal thoughts, homicidal thoughts, hopelessness, helplessness, change in energy,change in sleep patterns, change in motivation, change in concentration, change in sexual urges, feelings of guilt, anhedonia and other Endocrine: Denies No Symptoms/Complaints, Excessive sweating, Loss of appetite, Increased appetite, Intolerance to cold, Intolerance to heat, Flushing, Polydipsia, Polyuria, Increased salt intake, Fingernail changes, Unexplained weight gain, Unexplained weight loss, Decreased sexual desire and Other Physical Exam General Physical Exam Narrative: Is a well-developed moderately obese white female is awake alert Zenda x3 no acute distress. Limitations: no limitations General appearance: alert and in no apparent distress Head Head exam: Present atraumatic, normocephalic and normal inspection Eye Eye exam: Present normal apperance, PERRL and EOMI; Absent scleral icterus and conjunctival injection Pupils: Present normal accommodation ENT ENT exam: Present normal exam, normal orophraynx and mucous membranes moist Neck Neck exam: Present normal inspection, full ROM and supple; Absent tenderness and meningismus Respiratory Respiratory exam: Present normal lung sounds bilaterally Cardiovascular Cardiovascular Exam: Present regular rate and normal rhythm GI/Abdominal GI/Abdominal exam: Present deferred to the time of colonoscopy Vital Signs Vital Signs: Vital Signs 10/26/19 11:31 10/26/19 12:43 10/26/19 14:20 Temperature 98.3 F 98.4 F Pulse Rate 83 79 83 Respiratory Rate 18 18 18 Blood Pressure 125/76 109/76 O2 Sat by Pulse Oximetry 92 L 92 L 95 MDM (comprehensive) Lab Data Result diagrams: 10/26/19 12:50 10/26/19 12:50 Lab Results 10/26/19 10/26/19 10/26/19 Range/Units 12:50 12:50 12:50 WBC 16.2 H (4.45-10.71) 10e3/uL RBC 4.30 (4.20-5.40) 10e6/uL Hgb 12.9 (10.7-15.4) g/dL Hct 39.0 (37-47) % MCV 90.7 (80-96) fl MCH 30.0 (27-31) pg MCHC 33.1 (33-37) g/dl RDW 13 (11-15) % Plt Count 416 (130-472) 10e3/ul MPV 8.6 L (9.1-13.1) fl Immature Gran % (Auto) 1.2 (0-2) % Neut % (Auto) 86.4 H (41-77) % Lymph % (Auto) 9.6 L (14-46) % Johnson % (Auto) 2.5 L (4-12) % Eos % (Auto) 0.1 (0-7) % Baso % (Auto) 0.2 L (0.4-1.3) % Lymph # (Auto) 1.6 (0.6-4.6) # Abs Immat Gran (auto) 0.2 H (0-0.1) # Add Manual Diff Manual diff added Total Counted 100 Neutrophils (Manual) 86 H (41-77) % Absolute Neutrophils 14.0 H (1.7-7.6) # Lymphocytes (Manual) 11 L (14-46) % Monocytes (Manual) 3 L (4-12) % Monocytes # 0.4 (0.2-1.2) # Absolute Eosinophils 0.0 (0.0-0.5) # Absolute Basophils 0.0 (0.0-0.2) # Platelet Estimate Appears normal (NORMAL) RBC Morphology Appears normal (NORMAL) ESR Westergren 11 (0-20) mm/hr D-Dimer Less than 0.19 (0.0-0.50) mg/L Sodium 139 (132-146) mmol/L Potassium 4.0 (3.5-5.5) mmol/L Chloride 106 (99-109) mmol/l Carbon Dioxide 25 (20-31) mmol/l Anion Gap 12 (8-16) mmol/l BUN 15 (9-23) mg/dL Creatinine 0.8 (0.5-1.1) mg/dL GFR Calculation Greater ross n 60 (ABOVE 60) ml/min Glucose 114 H (74-106) mg/dL Calcium 8.9 (8.5-10.1) mg/dL Total Bilirubin 0.2 L (0.3-1.2) mg/dL AST 6 (0-33) U/L ALT 22 (10-49) U/L Alkaline Phosphatase 85 (45- 129) U/L Creatine Kinase (33-211) U/L CK-MB (CK-2) (0.0-5.0) ng/mL CK-MB (CK-2) % % Troponin I (0.00-0.09) ng/mL C- Reactive Protein 6.1 H (0.0-5.0) mg/L Serum Total Protein 7.6 (5.7- 8.2) g/dL Albumin 3.8 (3.2-4.8) g/dL 10/26/19 Range/Units 12:50 WBC (4.45-10.71) 10e3/uL RBC (4.20-5.40) 10e6/uL Hgb (10.7-15.4) g/dL Hct (37-47) % MCV (80-96) fl MCH (27-31) pg MCHC (33-37) g/dl RDW (11-15) % Plt Count (130-472) 10e3/ul MPV (9.1-13.1) fl Immature Gran % (Auto) (0-2) % Neut % (Auto) (41-77) % Lymph % (Auto) (14-46) % Johnson % (Auto) (4-12) % Eos % (Auto) (0-7) % Baso % (Auto) (0.4-1.3) % Lymph # (Auto) (0.6-4.6) # Abs Immat Gran (auto) (0-0.1) # Add Manual Diff Total Counted Neutrophils (Manual) (41-77) % Absolute Neutrophils (1.7-7.6) # Lymphocytes (Manual) (14-46) % Monocytes (Manual) (4-12) % Monocytes # (0.2-1.2) # Absolute Eosinophils (0.0-0.5) # Absolute Basophils (0.0-0.2) # Platelet Estimate (NORMAL) RBC Morphology (NORMAL) ESR Westergren (0-20) mm/hr D-Dimer (0.0-0.50) mg/L Sodium (132-146) mmol/L Potassium (3.5- 5.5) mmol/L Chloride (99-109) mmol/l Carbon Dioxide (20-31) mmol/l Anion Gap (8-16) mmol/l BUN (9-23) mg/dL Creatinine (0.5-1.1) mg/dL GFR Calculation (ABOVE 60) ml/min Glucose (74-106) mg/dL Calcium (8.5-10.1) mg/dL Total Bilirubin (0.3-1.2) mg/dL AST (0-33) U/L ALT (10-49) U/L Alkaline Phosphatase (45-129) U/L Creatine Kinase 37 (33-211) U/L CK-MB (CK-2) 1.0 (0.0-5.0) ng/mL CK-MB (CK-2) % 2.7 % Troponin I Less than 0.015 (0.00-0.09) ng/mL C-Reactive Protein (0.0-5.0) mg/L Serum Total Protein (5.7- 8.2) g/dL Albumin (3.2-4.8) g/dL EKG Data -: EKG Interpreted by Me EKG shows normal: sinus rhythm Rate: normal Compared to previous EKG there's: no significant change Interpretation: normal EKG Radiology Data Radiology results: report reviewed CT of the chest shows no acute processes per radiology. There is questionably some minimal atelectasis in the left upper lobe base but otherwise is completely negative. Medical Decision Making I discussed with the patient detail the findings of our evaluation today. 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 ED Provider: Mark Buckley ED Status: Ready for Discharge Time Seen by Provider: 10/26/19 12:20 Triaged At: 10/26/19 11:29 Condition Condition: Good Discharge Detail Disposition: Home, Self-Care Med Rec New Prescriptions: Continued escitalopram oxalate 10 mg tablet 10 mg PO HS RF: 0 benzonatate [Tessalon Perles] 100 mg capsule 100 mg PO TID PRN (Reason: cough) Qty: 30 RF: 2 prednisone 20 mg tablet See Rx Instructions PO QDAY Qty: 15 RF: 0 prednisone 20 mg tablet 60 mg PO QDAY Qty: 30 RF: 0 Advair HFA 115-21 mcg/actuation HFA aerosol inhaler 2 puffs IH BID Qty: 12 RF: 2 albuterol sulfate [Ventolin HFA] 18 GM HFA aerosol inhaler 2 puff Inhalation Q4HPRN PRN (Reason: Wheezing) Qty: 1 RF: 0 hydroxyzine HCl 50 MG tablet 1 tab PO BID PRN (Reason: Wheezing) Qty: 60 RF: 5 montelukast 10 mg tablet 10 mg PO HS Qty: 90 RF: 3 Discharge Education Printouts: Bronchospasm (ED) Discharge Problem: Asthma, Post- infection bronchospasm Follow Up Care/Instructions Diet/Activity/Wound Care..: As we discussed the CT scan as well as x-rays and laboratory evaluations done today and recently have shown no obvious dangerous sign for your sensation of shortness of breath and chest tightness. The most likely cause from this is a recent infection that you have that have led to what appears yash a postinfectious bronchospasm which can last for weeks if not a month or so. At this point time there is no further treatment that can be instituted as you have already been placed on steroids. We strongly recommend that you do follow through with the follow-up with a reconciling clerk for furthertesting. The peak flow that was performed on you today resulted in a level of 420 which is very lownormal and certainly is slightly lower than would be expected in an otherwise healthy individual. We did test you for any signs of pulmonary emboli and there is negative. There certainly was no other sign of acute infection or any type of tumors on the CT scan. With all of this being said if your symptoms worsen you are always welcome to return for reevaluation and treatment on an emergencybasis if you are unable to contact your primary care provider. *Discharge Patient* Discharge Orders: Discharge Order (Routine); Ordered 10/26/19 Ordered By: Mark Buckley Report Signers: <Electronically signed by Mark Buckley > Mark Buckley 10/26/19 1604 Mark Buckley SIGNATURE DA Report Cosigners: D: DOYLE 10/26/19 1239 T: DOYLE 10/26/19 1239 CC: Contreras Bond M.D. Name Value Range Interpretation Code Description Data Kristyn rce(s) Supporting Document(s) ID Date Data Source [id number] 10/23/2019 09:14:00 AM [facility] Patient Name: LIBAN FLOWER : 1980 Sex: F Pt Unit #: [id number] Location:[facility] Provider: Visit Date/Time: 10/23/19 Primary Insurance: /[facility] [place] Secondary Insurance: Self Pay Intake Vital Signs 10/23/19 09:19 Current Weight 205 lb Weight Measurement Method Standing Scale BP 112/62 Blood Pressure Location Lt brachial Position Sitting Respiration 18 Pulse 74 Pulse Strength Normal Temp 98.4 F Temp Source Tympanic Pulse Oximetry (%) 96 Oxygen Delivery Method room air Intake Visit Reasons: Respiratory complaints Nurse Note: Here today for respiratory complaints. Pt states that she has been sick for 3-4 weeks with a cough that will not go away . Did have a CXR on 10/20/19 - per Grace Denney she was advised to see her PCP and ask about possible pulmonary referral. Currently on Levofloxacin and prednisone. Allergies doxycycline Adverse Reaction (Mild, Verified 10/09/19 17:57) nausea HIV Testing Offer - ages 13-64 Requirement for HIV testing offer been met?: Patient reports past refusal PFSH Medical History Allergic rhinitis Asthma Insomnia Obese body habitus (Acute) Social History Does the Patient have a Healthcare Proxy: No Does Patient have a DNR?: No Does Patient have a Living Will?: No Hx Recent Travel (where): No HPI Additional HPI HPI Details: as above. since being seen here on 10/03 and presumed to have the flu, she has been to the ED and 2 other providers with no definitive diagnosis, but suspicion of asthma. she has noted some improvement during the 3 days that she has been on 60 mg of prednisone. prior to this her asthma has only been triggered by allergies. she smokes a few cigarettes daily. Pulmonary Com plaints Current symptoms: Reports cough; Denies hemoptysis URI History of Present Illness Current symptoms: Reports cough Review of Systems Card Reports dyspnea on exertion Resp Denies chest congestion, Reports cough, Denies hemoptysis, Denies excessive phlegm production, Denies pain on inspiration, Denies pain with cough, Reports dyspnea on exertion, Denies stridor and Denies wheezing Aller/Immun Denies wheezing Exam Const General: cooperative, no acute distress and well groomed Nutritional Appearance: obese Orientation: alert, awake and oriented x3 HENMT Head: normal to inspection, normocephalic and atraumatic Ears: hearing grossly normal bilaterally, external ears normal, TM's normal bilaterally and EAC's normal General nose exam: external nose normal and no nasal discharge Face and sinus: normal facial exam Mouth: oral mucosae normal, lip normal, tongue normal, oropharynx normal and moist mucous membranes Throat: posterior oropharynx normal Eyes General: appe arance normal, both eyes and all related structures Alignment and Position: alignment normal Periorbital: periorbital findings normal Eyelids: eyelids normal Conjunctivae: conjunctivae normal Sclera: sclerae normal Cornea: corneas normal Pupils: PERRL EOM: EOM intact bilaterally Neck Neck: normal visual inspection, no lymphadenopathy and supple Neck mass: No Thyroid: thyroid normal Chest Chest: normal inspection of the chest Resp Effort Inspection: normal respiratory effort Auscultation: diminished lung sounds, no rales, no rhonchi and no wheezes Cardio Rate: regular rate Rhythm: regular rhythm Heart Sounds: S1 normal, S2 normal, no click, no gallops and no murmurs Assessment Plan Assessment Plan (1) Asthma: Status: None SNOMED Code(s): 328336222 Category: Medical Plan - Contreras Bond M.D.: i think this is the cause of her persistent cough, so will keep her on prednisone 60 mg daily, startadvair, recheck in 6-7 days and refer to pulmonary. Orders Other Medications: New: prednisone 60 mg (3 x 20 mg) PO QDAY 30 tabs 0RF fluticasone propion-salmeterol 115-21 mcg/actuation (Advair HFA) 2 puffs inhalation BID 12 grams 2RF Electronically Signed By: <Electronically signed by Contreras Bond MD> Date/Time Signed: 10/23/19946 Name Value Range Interpretation Code Description Data Kristyn rce(s) Supporting Document(s) ID Date Data Source [id number] 10/21/2019 08:20:00 AM [facility] [address] [place] [id number] [phone] NAME SEX PT STATUS ACCOUNT NUMBER LIBAN FLOWER REG REF [id number] ORDERING PHYSICIAN LOCATION MEDICAL RECORD NO. Babs MUHAMMAD [facility] [id number] ATTENDING PHYSICIAN DATE OF DATE OF EXAM/TIME Contreras Bond MD 1980 10/20/191853 TYPE / EXAM Xray Chest 2 view PA/LAT REASON FOR EXAM cough COMPARISON: October 09, 2019 FINDINGS: The cardiac and mediastinal silhouettes are within normal limits. Prominent interstitial markings are seen towards the right lower lung. Clinical correlation advised for possibility of an interstitial pneumonitis, such as viral. No focal pulmonary consolidation, pleural effusion, or pulmonary vascular congestion is seen. The bones and soft tissues are normal. The upper abdomen is unremarkable. IMPRESSION: Prominent interstitial markings towards the right lower lung. Clinical correlation advised. Reported By Bert Diego MD on 10/21/19819 Signed By Bert Diego MD on 10/21/19821 Date Time CC: Contreras Bond M.D.; Bert Diego MD Techn: CUMME Trans Dt/Tm: Trans by: DT Prt Dt/Tm: [id number]: Total DLP = 0.00 mGy-cm Fluoroscopy Time (in secs): Name Value Range Interpretation Code Description Data Kristyn rce(s) Supporting Document(s) ID Date Data Source [id number] 10/20/2019 05:58:00 PM [facility] Patient Name: LIBAN FLOWER : 1980 Sex: F Pt Unit #: [id number] Location:[facility] Provider: Visit Date/Time: 10/20/19 Primary Insurance: /[facility] [place] Secondary Insurance: Self Pay Intake Vital Signs 10/20/19 17:59 Current Height 5 ft 2 in Current Weight 204 lb Weight Measurement Method Standing Scale BMI 37.3 BP 118/76 Blood Pressure Location Lt brachial Position Sitting Respiration 18 Pulse 79 Pulse Strength Normal Pulse Source Pulse Oximeter Temp 97.2 F L Temp Source Tympanic Pulse Oximetry (%) 96 Oxygen Delivery Method room air Intake Visit Reasons: Cold symptoms (adult) Nurse Note: patient states that she has been sick for 3 weeks. she has had a harsh productive cough,and tiredness. Accompanied by: Self / Same as Patient Is patient in pain?: No Allergies doxycycline Adverse Reaction (Mild, Verified 10/09/19 17:57) nausea Medications albuterol sulfate 90 mcg/actuation (Ventolin HFA) 2 puffs inhalation Q4HPRN PRN benzonatate (Tessalon Perles) 100 mg PO TID PRN escitalopram oxalate 10 mg PO HS hydroxyzine HCl 1 tab PO BID PRN montelukast 10 mg PO HS prednisone 3 tabs by mouth day 1,2,3; 2 tabs day 4,5; 1 tab day 6,7 HIV Testing Offer - ages 13-64 Requirement for HIV testing offer been met?: Patient reports past refusal [facility] Medical History Allergic rhinitis Asthma Insomnia Obese body habitus (Acute) Surgical History section Cholecystectomy (06/07/16) History of - surgery ( 1999) History of - surgery History of - surgery Family History Mother Hypertension Father No problems noted. Social History Does the Patient have a Healthcare Proxy: No Does Patient have a DNR?: No Does Patient have a Living Will?: No Hx Recent Travel (where): No HPI Additional HPI HPI Details: 39 year old woman presents to the clinic today for a chief complaint of cough that has persisted since October 03. She was given Tamiflu, and then had a negative respiratory panel in the ER shortly after onset of her symptoms. She was then given a steroid, which helped minimally. She was prescribed azithromycin 10.14.2019 for bronchitis. She reports feeling somewhat better, but her coughing spells and wheezing continues. She has been using her albuterol inhaler sporadically; her last time using it was last night. Tessalon perles have helped with her cough, but she states she ran out last night. She has not had a fever. She has a history of asthma, mainly allergy induced. She does not see a reconciling clerk. URI History of Present Illness Current symptoms: Reports cough; Denies fever(s), sore throat or sinus pain Associated symptoms: Denies chest pain, abdominal pain, nausea, vomiting, diarrhea or rash Review of Systems Const Reports fatigue and Denies fever(s) Eyes Denies blurry vision, Denies change in vision, Denies dry eyes, Denies irritation and Denies loss ofvision ENT Denies dysphagia, Reports nasal congestion, Reports nasal discharge, Denies sinus pain, Denies sinuspressure and Denies sore throat Card Denies chest pain, Denies pedal edema, Denies lightheadedness, Denies palpitations and Denies dyspnea Resp Reports cough, Denies dyspnea and Reports wheezing GI Denies abdominal pain, Denies change in bowel habits, Denies dysphagia, Denies early satiety, Deniesheartburn, Denies diarrhea, Denies nausea and Denies vomiting Musc Denies back pain, Denies arthralgias, Denies limited range of motion, Denies muscle cramps and Denies muscle weakness Skin/Breast Denies breast pain, Denies change in pigmentation, Denies lesions, Denies nail changes, Denies rash and Denies unusual bruising Neuro Denies loss of vision Endo Reports fatigue and Denies palpitations Desean/Lymph Denies easy bleeding, Denies easy bruising and Denies lymphadenopathy Aller/Immun Reports wheezing Exam Const General: cooperative, comfortable and no acute distress HENMT Ears: external ears normal, TM's normal bilaterally and EAC's normal General nose exam: external nose normal and nasal discharge clear Face and sinus: normal facial exam and sinuses nontender Mouth: oral mucosae normal Teeth and gingiva: dentition normal Throat: posterior oropharynx normal Neck Neck: no lymphadenopathy Resp Effort Inspection: normal respiratory effort Auscultation: wheezes expiratory wheezes and scattered wheezes Cardio Rate: regular rate Rhythm: regular rhythm Heart Sounds: S1 normal and S2 normal Skin Rashes: no rashes Extrem General: full ROM, capillary refill normal and no clubbing, cyanosis or edema Assessment Plan Assessment Plan (1) Reactive airway disease with acute exacerbation: Code(s): J45.901 - Unspecified asthma with (acute) exacerbation Qualifiers: Asthma severity: mild Asthma persistence: intermittent Qualified Code(s): J45.21 - Mild intermittent asthma with (acute) exacerbation Plan - JB Servin: She was advised to start using her albuterol inhaler 2 puffs every 4 hours. She may take tessalon perles which she said has helped her in the past; I will refill this prescription for her. She is still wheezing, despite antibiotic tx, so I am going to request a chest xray and start her on a steroid taper. She was advised to go to the ER with any worsening sxs. She was advised to follow up with her PCP if her sxs persist. Orders Other Medications: New: benzonatate (Tessalon Perles) 100 mg PO TID PRN 30 caps 2RF cough prednisone 3 tabs by mouth day 1,2,3; 2 tabs day 4,5; 1 tab day 6,7 15 tabs 0RF Other Orders: Orders: Xray Chest 2 view PA/LAT Today R05 Electronically Signed By: <Electronically signed by Babs MUHAMMAD> Date/Time Signed: 10/20/19 1917 Name Value Range Interpretation Code Description Data Kristyn rce(s) Supporting Document(s) ID Date Data Source [id number] 10/14/2019 03:42:00 PM [facility] Patient Name: LIBAN FLOWER : 1980 Sex: F Pt Unit #: [id number] Location:AMB.EXT Provider: Visit Date/Time: 10/14/19 Primary Insurance: BC/BS [facility] Secondary Insurance: Self Pay Intake Vital Signs 10/14/19 15:43 Current Height 5 ft 2 in Current Weight 204 lb Weight Measurement Method Standing Scale BMI 37.3 BP 90/60 Blood Pressure Location Lt brachial Position Sitting Respiration 18 Pulse 98 Pulse Strength Normal Pulse Source Pulse Oximeter Temp 98 F Temp Source Oral Pulse Oximetry (%) 99 Oxygen Delivery Method room air Intake Visit Reasons: Cough Nurse Note: pt is here today for a cough she has had for two weeks pt states she was diagnosed with flu last week finished tamiflu still has a cough that is keeping her up Is patient in pain?: No Allergies doxycycline Adverse Reaction (Mild, Verified 10/09/19 17:57) nausea HIV Testing Offer - ages 13-64 Requirement for HIV testing offer been met?: Patient reports past refusal [facility] Social History Does the Patient have a Healthcare Proxy: No Does Patient have a DNR?: No Does Patient have a Living Will?: No Hx Recent Travel (where): No HPI Additional HPI HPI Details: PRODUCTIVE COUGH X 10 DAYS. COUGHS TO POINT OF GAGGING. WAS GIVEN TAMIFLU BY PCP. "DIDN'T HELP" WENT TO ER WHERE TESTED NEGATIVE FOR FLU. STILL GETTING WORSE PAST FEW DAYS Cough Pulmonary Results: No Data to Display Review of Systems Const All systems reviewed are unremarkable except as noted in HPI and below Reports fatigue and Reports headache(s) ENT Reports headache(s), Reports nasal congestion and Reports sore throat Card Reports system reviewed and no additional complaints, except as documented Resp Reports cough GI Reports system reviewed and no additional complaints, except as documented, Denies diarrhea, Denies nausea and Reports vomiting Details: VOMITS AFTER COUGHING SPELL Reports system reviewed and no additional complaints, except as documented Musc Reports system reviewed and no additional complaints, except as documented Skin/Breast Reports system reviewed and no additional complaints, except as documented Neuro Reports headache(s) Endo Reports fatigue Exam Const General: cooperative Nutritional Appearance: obese Orientation: alert and oriented x3 HENMT Ears: TM abnormal erythematous General nose exam: external nose normal and mucous membranes and turbinates abnormal erythematous Throat: posterior oropharynx abnormal erythema Neck Neck: normal visual inspection Neck mass: No Thyroid: thyroid normal Lymphatic: no lymphadenopathy noted Resp Effort Inspection: normal respiratory effort Auscultation: rhonchi Cardio Rate: regular rate Rhythm: regular rhythm GI Palpation: soft Auscultation: normal bowel sounds General: No CVA tenderness Musc Cervical Spine: normal cervical lordosis Skin Lesions: no lesions Rashes: no rashes Neuro General: alert and oriented x3 Cranial Nerves: CN's II-XII intact bilaterally Cognition: normal cognition Speech: speech normal Assessment Plan Assessment Plan (1) Cough: Code(s): R05 - Cough (2) Bronchitis: Status: Acute Code(s): J40 - Bronchitis, not specified as acute or chronic SNOMED Code(s): 01914107 Category: Medical Plan - Zayra Emanuel: INCREASE FLUIDS COOL MIST HUMIDIFIER Orders Other Medications: New: azithromycin (Zithromax Z-Kel) TAKE 2 TABS TODAY THEN 1 TAB DAILY X 4 DAYSS 250 mg PO DAILY 5 days 6 tabs 0RF J32.9 benzonatate (Tessalon Perles) 100 mg PO TID 15 caps 0RF Electronically Signed By: <Electronically signed by Zayra Castellanos > Date/Time Signed: 10/14/19 1605 Name Value Range Interpretation Code Description Data Kristyn rce(s) Supporting Document(s) ID Date Data Source [id number] 10/09/2019 06:17:00 PM EST [facility] [address] [place] [address] [phone] NAME SEX PT STATUS ACCOUNT NUMBER LIBAN FLOWER [facility] ER [id number] ORDERING PHYSICIAN LOCATION MEDICAL RECORD NO. [facility] [facility] [id number] ATTENDING PHYSICIAN DATE OF DATE OF EXAM/TIME Contreras Bond MD 1980 10/09/19 / 1643 TYPE / EXAM Xray Chest 2 view PA/LAT REASON FOR EXAM cough for a week. Clinical History/Indication for Exam: cough for a week. CHEST RADIOGRAPH, PA AND LATERAL VIEWS INDICATION: Cough for a week COMPARISON: August 05, 2019 FINDINGS: The tracheal air column is unremarkable. The cardiac silhouette is normal in size. The mediastinum is not widened. No pleural effusion is identified. The lung grijalva are clear. The pulmonary vascularity is normal. The thoracic aorta is normal. No pneumothorax or pneumoperitoneum identified. The osseous structures are intact. IMPRESSION: No radiographic evidence of acute cardiopulmonary disease. REPORT SIGNATURE ON FILE 10/09/2019 (18:17 Eastern Time ) Signed by: Emanuel La MD, PhD. Reported By Emanuel La MD on 10/09/191816 Signed By Emanuel La MD on 10/09/191816 Date Time CC: Contreras Bond M.D.; Emanuel La MD Techn: ZEHTJose Carlos Trans Dt/Tm: Trans by: DT Prt Dt/Tm: [id number]: Total DLP = 0.00 mGy-cm Fluoroscopy Time (in secs): Name Value Range Interpretation Code Description Data Kristyn rce(s) Supporting Document(s) ID Date Data Source [id number] 10/09/2019 06:01:00 PM [facility] FilmArray Respiratory Panel is a Multipl exed NAAT-PCR testNORMAL VALUE FOR ALL 20 PATHOGENS IS "NOT DETECTED".The FilmArray RP panel detects Influenza A H1,H3 gkg0924 H1 viruses,Influenza B virus, Respiratory syncytialvirus, Human metapneumovirus,Parainfluenza virus 1,2,3, and4, Adenovirus,Rhino/Enterovirus,Coronavirus HKU 1, Nl63,OC43, and 229E,Bordetella pertussis, Bordetellaparapertussis, Mycoplasma pneumoniae and Chlamydiapneumoniae.THIS TEST HAS NOT BEEN EVALUATED FOR USE WITH SPECIMENSOTHER THAN NASOPHARYNGEAL SWAB SPECIMENS.THE PERFORMANCE OF THIS TEST HAS NOT BEEN ESTABLISHED FORPATIENTS WITHOUT SIGNS AND SYMPTOMS OF RESPIRATORYINFECTION.RESULTS FROM THIS TEST MUST BE CORRELATED WITH CLINICALHISTORY, EPIDEMIOLOGICAL DATA , AND OTHER DATA AVAILABLE TOTHE CLINICIAN EVALUATING THE PATIENT.THE PERFORMANCE OF THE FilmARRAY RP HAS NOT BEEN ESTABLISHEDIN INDIVIDUALS WHO RECEIVED INFLUENZA VACCINE. RECENTADMINISTRATION OF A NASAL INFLUENZA VACCINE MAY CAUSE AFALSE POSITIVE RESULT FOR INFLUENZA A AND/OR B.NEGATIVE RESULTS SHOULD NOT BE USED THE SOLE BASIS FORDIAGNOSIS, TREATMENT, OR OTHER MANAGEMENT DECISIONS.NEGATIVE RESULTS IN THE SETTING OF A RESPIRATORY ILLNESSMAYBE DUE TO INFECTION WITH PATHOGENS THAT ARE NOT DETECTEDBY THIS TEST OR LOWER RESPIRATORY TRACT INFECTION THAT ISNOT DETECTED BY A NASOPHARYNGEAL SWAB SPECIMEN.No Organisms Detected Name Value Range Interpretation Code Description Data Kristyn rce(s) Supporting Document(s) ID Date Data Source [id number] 10/09/2019 04:44:00 PM [facility] ED Physician Documentation NAME: LIBAN FLOWER : 1980 AGE: 39 MR#: [id number] SERVICE DATE: 10/09/[address]: Naeem Smith PRIMARY CARE DR: Contreras Bond M.D. ROOM#: [facility] (Adult, General) General Chief Complaint: Respiratory Pulmonary Stated Complaint: COUGH Time Seen by Provider: 10/09/19 16:32 Source: patient Exam Limitations: no limitations History of Present Illness Narrative: 39 year old white female patient presents to the ER to reporthaving cough since 6 days associated . She went to her PCP last Saturday who treated her with Tamiflu empirically. She did not feel better and her cough got more worse. her cough is associated with nausea, vomiting (none in the ER) denies chest pain, abdominal pain, any urinary symptoms or change in bowel movement. History of Present Illness Timing/Duration: 1 week (6 days) Allergies/Home Meds Allergies Allergy/AdvReac Type Severity Reaction Status Date / Time doxycycline AdvReac Mild nausea Verified 03/21 17:57 Home Medications Medication Instructions Recorded Confirmed Last Taken Type albuterol sulfate [Ventolin Hfa] 2 puff INHALATION Q4HPRN PRN #1 ih 12/10/18 02/07/20 02/06/20 History hydroxyzine HCl 1 tab PO BID PRN #60 tab 10/09/18 10/09/19 10/08/19 History escitalopram oxalate 10 mg tablet 10 mg PO HS 05/21/19 10/09/19 10/08/19 History montelukast 10 mg tablet 10 mg PO HS #90 tab 09/29/19 10/09/19 10/08/19 Rx oseltamivir 75 mg capsule 75 mg PO QDAY #10 cap 10/05/19 10/09/19 10/09/19 Rx methylprednisolone [Medrol (Kel)] See Rx Instructions .ROUTE 10/09/19 Unknown Rx .COMPLEX #21 each PMH (from Triage) Patient Medical History PMH Reviewed/Updated as Needed: Yes PMH/PSH from Triage: Medical History (Updated 10/05/19 @ 17:43 by Contreras Bond M.D.) Allergic rhinitis (Medical) Asthma (Medical) Insomnia (Medical) Obese body habitus (Acute Medical) E66.9 Surgical History (Updated 02/24/19 @ 11:51 by Baton IA) section (Surgical) x 2 Cholecystectomy (Surgical 06/07/16) Lap Dr Monroy History of - surgery (Surgical 1999) History of - surgery (Surgical) tubes x2 History of - surgery (Surgical) abliation Female History LMP:: ABLATION : No Lactating mother:: No Hx Drug Resistant Infections Hx MRSA: (Methicillin-resistant Staphylococcus aureus): No Hx VRE (Vancomycin-resistant enterococci): No Hx C.Diff: No Hx CRKP: No Hx Other Resistant Infection?: No Isolation: Droplet Hx Recent Travel Out of the country within 10 days (where): No Hx Fever: No Hx Fever with a rash?: No Social History Does patient have suicidal/homicidal thoughts or ideation?: No Are you in a relationship with/Does anyone hit you, yell/swear at you, steal from you?: No Substance Use Hx Alcohol Use: Yes Hx Substance Use: No Hx Substance Use Treatment: No Smoking Status: Current some day smoker Tobacco Use Tobacco Products:: Cigarettes 1/2 PPD Years smoked:: 15 Hx Chewing Tobacco Use: No Vaccination History Hx/Date of Tetanus, Diphtheria Vaccination: No Hx/Date of Influenza Vaccination: No Hx/Date of Pneumococcal Vaccination: No Immunizations Up to Date: No ROS Review of Systems Constitutional: Reports chills; Denies fever Eyes: Denies vision change and eyelid issues ENT: Reports throat pain; Denies mouth pain and tinnitis Respiratory: Reports cough and sputum (she is not sure of its color); Denies SOB Cardiovascular: Denies chest pain, palpitations, edema, light headedness and leg cramps w/walking Gastrointestinal: Reports No Symptoms/Complaints, nausea and vomiting; Denies abdominal pain, diarrhea and constipation Genitourinary- Female: Denies dysuria, frequency and retention Musculoskeletal: Denies neck pain, shoulder pain and back pain Skin/Breasts: Denies rash, lesions and hives Neurologic: Denies weakness and numbness Psychiatric: Reports No Symptoms/Complaints; Denies anxiety, depression, hopelessness and helplessness Endocrine: Reports No Symptoms/Complaints; Denies Polydipsia and Polyuria Hematological/Lymphatic: Reports No Symptoms/Complaints; Denies easy bleeding and easy bruising Allergic/Immunologic: Reports No Symptoms/Complaints; Denies rash and hives Physical Exam General Limitations: no limitations General appearance: alert Head Head exam: Present atraumatic Eye Eye exam: Present normal apperance, PERRL and EOMI ENT ENT exam: Present mucous membranes moist Neck Neck exam: Present normal inspection Respiratory Respiratory exam: Present other (most of the lungs are clear, scattered wheezes. no rales or rhonchi); Absent respiratory distress, accessory muscle use and decreased breath sounds Cardiovascular Cardiovascular Exam: Present regular rate, normal rhythm and no murmur GI/Abdominal GI/Abdominal exam: Present Abd soft, bowel sounds present all quadrents and soft; Absent tenderness,guarding, rebound and rigid Extremities Exam Extremities exam: Present normal inspection and Full ROM without tenderness, capillary refill brisk Back Exam Back exam: Present normal inspection Neurological Exam Neurological exam: Present alert, oriented X3, CN II-XII intact, normal gait and motor sensory deficit Psychiatric Psychiatric exam: Present normal affect and normal mood Skin Skin exam: Present warm, dry and intact Vital Signs Vital Signs: Vital Signs 10/09/19 16:26 10/09/19 18:00 Temperature 98.5 F Pulse Rate 89 89 Respiratory Rate 18 18 Blood Pressure 130/64 O2 Sat by Pulse Oximetry 96 96 MDM (comprehensive) Lab Data Labs: Microbiology 10/09/19 16:56 Nasopharyngeal Respiratory Panel (PCR) - Final No Organisms Detected Medical Decision Making Free Text/Narative:: I discussed the case with Dr. Rachel, decisions are taken in collaboration. Dr. Rachel ordered respiratory panel, I ordered chest xray I ordered Mucinex for her cough. Xray is negative per Dr. Rachel's interpretation respiratory panel is negative I ordered Duoneb, and one dose of Decadron IM I will send her home on Medrol Kel Diagnosis:post viral tussive syndrome Differential Diagnosis Differential Diagnosis: pneumonia, bronchitis, viral syndrome Plan Plan Plan of care: Activity limitations discussed with patient/family, Follow up appointments discussed, Plan of care discussed with patient and or family, Patient encouraged to ask questions about plan and Patient agrees with plan of care Discharge Plan Admission/Discharge Dx Primary DC Diagnosis: post viral tussive syndrome ED Provider: Naeem Smith ED Status: Ready for Discharge Time Seen by Provider: 10/09/19 16:32 Triaged At: 10/09/19 16:06 Condition Condition: Stable Discharge Detail Disposition: Home, Self-Care Med Rec New Prescriptions: New methylprednisolone [Medrol (Kel)] 4 mg tablets,dose pack See Rx Instructions .ROUTE .COMPLEX Qty: 21 RF: 0 No Action escitalopram oxalate 10 mg tablet 10 mg PO HS RF: 0 oseltamivir [Tamiflu] 75 mg capsule 75 mg PO QDAY Qty: 10 RF: 0 albuterol sulfate [Ventolin HFA] 18 GM HFA aerosol inhaler 2 puff Inhalation Q4HPRN PRN (Reason: Wheezing) Qty: 1 RF: 0 hydroxyzine HCl 50 MG tablet 1 tab PO BID PRN (Reason: Wheezing) Qty: 60 RF: 5 montelukast 10 mg tablet 10 mg PO HS Qty: 90 RF: 3 Diet:: Regular Medications Medication reconciliation performed by provider at discharge: Yes Follow Up Care /Instructions Diet/Activity/Wound Care..: Take your medications as prescribed. Drink lots of fluids. As we discussed, you need to quit smoking, you can discuss with your PCP different options to help you achieve that goal. It will help lower the incidence or respiratory infections, and protect you from lots of diseases like COPD, cancer and heart disease. Follow up with your primary healthcare provider within 2 days of discharge Come back to the ER if you develop fever, chest pain, any medical emergency *Discharge Patient* Discharge Orders: Discharge Order (Routine); Ordered 10/09/19 Ordered By: Naeem Smith Report Signers: <Electronically signed by Naeem MUHAMMAD> Naeem MUHAMMAD 10/09/19 1822 Naeem Smith SIGNATURE DA Report Cosigners: <<Signature on File>> Blaise Rachel MD 10/09/191848 <Electronically signed by Blaise Rachel MD> Blaise Rachel MD 10/09/191848 D: ALBIB 10/09/191643 T: ALBIB 10/09/191643 CC: Contreras Bond M.D. Name Value Range Interpretation Code Description Data Kristyn rce(s) Supporting Document(s) ID Date Data Source [id number] 10/05/2019 04:58:00 PM [facility] Patient Name: LIBAN FLOWER : 1980 Sex: F Pt Unit #: [id number] Location:[facility] Provider: Visit Date/Time: 10/05/19 Primary Insurance: /[facility] [place] Secondary Insurance: Self Pay Intake Vital Signs 10/05/19 16:58 Current Height 5 ft 2 in Current Weight 204 lb Weight Measurement Method Standing Scale BMI 37.3 BP 120/68 Blood Pressure Location Lt brachial Position Sitting Respiration 18 Pulse 98 Pulse Strength Normal Pulse Source Pulse Oximeter Temp 98.6 F Temp Source Oral Pulse Oximetry (%) 94 L Oxygen Delivery Method room air Intake Visit Reasons: Office visit Nurse Note: PT is here for 2 reasons. 1) She wanted to discuss weight loss with you and 2) yesterdayshe started feeling poorly again. Burning and pain when coughing and fatigue. She recently just got over pneumonia and she is nervous about getting it again. 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 Pretest education received and acknowledged SBIRT Annual Questionnaire Are you currently in recovery for alcohol or substance use?: No How many times in the past year have you had 4 or more drinks in a day?: None How many times in the past year have you used a recreational drug or used a prescription medication for nonmedical reasons?: None Do you need a note to return Do you need a note to return to daycare/school/sports/work: No PFSH Social History Does the Patient have a Healthcare Proxy: No Does Patient have a DNR?: No Does Patient have a Living Will?: No Hx Recent Travel (where): No HPI Additional HPI HPI Details: as above. she may or may not have had pneumonia last month. yesterday she awoke feeling like she was "hit by a bus". she aches, has fever and cough, some shortness of breath. Review of Systems Const Reports body ache, Reports chills, Reports fatigue, Reports fever(s), Reports malaise and Reports poor appetite Card Reports dyspnea Resp Reports cough, Reports dyspnea and Denies wheezing Endo Reports fatigue Aller/Immun Denies wheezing Exam Const General: cooperative, healthy appearing, no acute distress and well groomed Nutritional Appearance: obese Orientation: alert, awake and oriented x3 HENMT Head: normal to inspection, normocephalic and atraumatic Ears: hearing grossly normal bilaterally, external ears normal, TM's normal bilaterally and EAC's normal General nose exam: external nose normal and no nasal discharge Face and sinus: normal facial exam Mouth: oral mucosae normal, lip normal, tongue normal, oropharynx normal and moist mucous membranes Throat: posterior oropharynx normal Eyes General: appearance normal, both eyes and all related structures Alignment and Position: alignment normal Periorbital: periorbital findings normal Eyelids: eyelids normal Conjunctivae: conjunctivae normal Sclera: sclerae normal Cornea: corneas normal Pupils: PERRL EOM: EOM intact bilaterally Neck Neck: normal visual inspection, no lymphadenopathy and supple Neck mass: No Thyroid: thyroid normal Chest Chest: normal inspection of the chest Resp Effort Inspection: normal respiratory effort Auscultation: clear to auscultation bilaterally Cardio Rate: regular rate Rhythm: regular rhythm Heart Sounds: S1 normal, S2 normal, no click, no gallops and no murmurs Assessment Plan Assessment Plan (1) Obese body habitus: Status: Acute Code(s): E66.9 - Obesity, unspecified SNOMED Code(s): 009093817 Category: Medical Plan - Contreras Bond M.D.: we had a long discussion regarding diets and their harm, body image and diet. recheck prn. (2) Influenza: Code(s): J11.1 - Infl uenza due to unidentified influenza virus with other respiratory manifestations Plan - Contreras Bond M.D.: due to her history of asthma and symptoms for less than 48 hours, will rx with tamiflu. she will call if any increasing asthma symptoms or if getting worse. recheck here prn. 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) 11/01/2019 09:38:22 PM EST Current every day smoker co mpleted Current every day smoker [facility] 11/01/2019 09:38:22 PM EST Current every day smoker co mpleted Current every day smoker [facility] 11/01/2019 09:38:22 PM EST Current every day smoker co mpleted Current every day smoker [facility] Smoking 11/01/2019 09:38:00 PM EST Current every day smoker co mpleted Current every day smoker [facility] Smoking 11/01/2019 09:38:00 PM EST Current every day smoker co mpleted Current every day smoker [facility] Smoking 11/01/2019 09:38:00 PM EST Current every day smoker co mpleted Current every day smoker [facility] 10/28/2019 12:26:01 PM EST Current every day smoker co mpleted Current every day smoker [facility] 10/28/2019 12:26:01 PM EST Current every day smoker co mpleted Current every day smoker [facility] 10/28/2019 12:26:01 PM EST Current every day smoker co mpleted Current every day smoker [facility] 10/28/2019 12:26:01 PM EST Current every day smoker co mpleted Current every day smoker [facility] Smoking 10/28/2019 12:26:00 PM EST Current every day smoker co mpleted Current every day smoker [facility] 10/26/2019 12:44:06 PM EST Current every day smoker co mpleted Current every day smoker [facility] 10/26/2019 12:44:06 PM EST Current every day smoker co mpleted Current every day smoker [facility] 10/26/2019 12:44:06 PM EST Current every day smoker co mpleted Current every day smoker [facility] 10/26/2019 12:44:06 PM EST Current every day smoker co mpleted Current every day smoker [facility] 10/26/2019 12:44:06 PM EST Current every day smoker co mpleted Current every day smoker [facility] Smoking 10/26/2019 12:44:00 PM EST Current every day smoker co mpleted Current every day smoker [facility] 10/22/2019 01:44:00 PM EST No completed No [facility] 10/22/2019 01:44:00 PM EST Yes completed Yes [facility] 10/09/2019 04:48:29 PM EST Current some day smoker com pleted Current some day smoker [facility] 10/09/2019 04:48:29 PM EST Current some day smoker com pleted Current some day smoker [facility] 10/09/2019 04:48:29 PM EST Current some day smoker com pleted Current some day smoker [facility] 10/09/2019 04:48:29 PM EST Current some day smoker com pleted Current some day smoker [facility] 10/09/2019 04:48:29 PM EST Current some day smoker com pleted Current some day smoker [facility] 10/09/2019 04:48:29 PM EST Current some day smoker com pleted Current some day smoker [facility] 10/09/2019 04:48:29 PM EST Current some day smoker com pleted Current some day smoker [facility] 10/09/2019 04:48:29 PM EST Current some day smoker com pleted Current some day smoker [facility] 10/09/2019 04:48:29 PM EST Current some day smoker com pleted Current some day smoker [facility] Smoking 10/09/2019 04:48:00 PM EST Current some day smoker com pleted Current some day smoker [facility] Smoking 10/09/2019 04:48:00 PM EST Current some day smoker com pleted Current some day smoker [facility] Smoking 10/09/2019 04:48:00 PM EST Current some day smoker com pleted Current some day smoker [facility] Smoking 10/09/2019 04:48:00 PM EST Current some day smoker com pleted Current some day smoker [facility] Vital Signs ID Date Data Source UNK Name Value Range Interpretation Code Description Data Source(s) Body weight 204.00 [lb_av] 204.00 [lb_av] 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) Body surface area Derived from formula 1.96 m2 1.96 m2 [facility] ([employer] Woman BRAIN WAVE TECHNICIAN) Body mass index (BMI) [Ratio] 39.0 kg/m2 39.0 k g/m2 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) Body weight 213.00 [lb_av] 213.00 [lb_av] 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) Body height 62 [in_i] 62 [in_i] [facility] (Silvestre Woman BRAIN WAVE TECHNICIAN) 5'2" Diastolic blood pressure 82 mm[Hg] 82 mm[Hg] 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) Systolic blood pressure 134 mm[Hg] 134 mm[Hg] M 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) Body surface area 1.96 m2 1.96 m2 [facility] ([employer] Woman BRAIN WAVE TECHNICIAN) Body weight 95.766 kg 95.766 kg [facility] ([facility]) Body mass index (BMI) [Ratio] 38.6 kg/m2 38.6 k g/m2 [facility] ([facility]) Body weight 211.12 [lb_av] 211.12 [lb_av] [facility] Body height 62 [in_i] 62 [in_i] [facility] [facility] 5'2" Oxygen saturation in Arterial blood by Pulse oximetry 95 % 95 % [facility] ([facility]) Heart rate 96 /min 96 /min CRISTINA ([facility], ) Diastolic blood pressure 80 mm[Hg] 80 mm[Hg] CRISTINA ([facility], ) Systolic blood pressure 118 mm[Hg] 118 mm[Hg] Quinton VAZQUEZ ([facility], )
[2020-10-27 06:56] LABS: HEMATOCRIT 41.9 % (36.0-47.0); HEMOGLOBIN 13.5 g/dl (12.0-15.5); MEAN CORPUSCULAR HEMOGLOBIN 28.7 pg (27.0-33.0); MEAN CORPUSCULAR HGB CONC 32.2 g/dl (32.0-36.5); PLATELET COUNT, AUTOMATED 412 10^3/uL (150-450); RED BLOOD COUNT 4.71 10^6/uL (4.00-5.40); WHITE BLOOD COUNT 10.7 10^3/uL (4.0-10.0)
[2020-10-27] MEDS ORDERED: ceFAZolin SOD 2 GM in IV 1 EA IV ONE (07:00)
[2020-10-27] MEDS ORDERED: LR 1,000 ML IV ONE (07:00)
[2020-10-27] MEDS ORDERED: ROCURONIUM BROMIDE 50 MG/5 ML VIAL As Ordered ONE ×2 (07:06→08:59)
[2020-10-27] MEDS ORDERED: dexameTHASONE 4 MG/ML 1ML VIAL (J1100 PER 1MG) As Ordered ONE (07:06)
[2020-10-27] MEDS ORDERED: ACETAMINOPHEN 1000MG 100ML IV BTL (OFIRMEV) (J0131 PER 10MG) As Ordered ONE (07:06)
[2020-10-27] MEDS ORDERED: KETOROLAC 60MG 2ML VIAL As Ordered ONE (07:06)
[2020-10-27] MEDS ORDERED: ONDANSETRON 4MG/2ML VIAL As Ordered ONE ×2 (07:06→10:07)
[2020-10-27] MEDS ORDERED: SUGAMMADEX SODIUM 500 MG/5 ML VIAL (BRIDION) As Ordered ONE (07:06)
[2020-10-27] MEDS ORDERED: propofoL 200 MG/20 ML VIAL As Ordered ONE (07:06)
[2020-10-27] MEDS ORDERED: LIDOCAINE 2% 100MG/5ML SDV (FOR ANES.) As Ordered ONE (07:06)
[2020-10-27] MEDS ORDERED: fentaNYL 100 MCG/2 ML INJECTION (J3010) As Ordered ONE ×4 (07:07→10:03)
[2020-10-27] MEDS ORDERED: MIDAZOLAM INJ 2MG/2ML VIAL (J2250 PER 1MG) As Ordered ONE (07:07)
[2020-10-27] MEDS ORDERED: METHYLENE BLUE 0.5% (5MG/ML) 10 ML AMP (PROVAYBLUE) As Ordered ONE (07:11)
[2020-10-27] MEDS ORDERED: MORPHINE 2 MG/ML 1ML VIAL (J2270) IV PRN (10:00)
[2020-10-27] MEDS ORDERED: oxyCODONE 5MG TAB PO PRN (10:00)
[2020-10-27] MEDS ORDERED: LR 1,000 ML IV SCH (10:00)
[2020-10-27] MEDS ORDERED: oxyCODONE 5MG TAB As Ordered ONE (10:03)
[2020-10-27] MEDS: fentaNYL 100 MCG/2 ML INJECTION (J3010) IV PRN ×2 (10:06→10:11)
[2020-10-27] MEDS: ONDANSETRON 4MG/2ML VIAL IV PRN ×2 (10:09→10:16)
[2020-10-27] MEDS ORDERED: NALOXONE INJ 0.4MG/1ML VIAL (J2310 PER 1MG) IV PRN (10:20)
[2020-10-27] MEDS ORDERED: MORPHINE 1MG/ML IN 0.9% NACL 100ML IV BAG IV PRN (10:20)
[2020-10-27] MEDS ORDERED: NALBUPHINE HCL 10 MG/ML AMP (J2300) IV PRN (10:20)
[2020-10-27] MEDS ORDERED: diphenhydrAMINE 50MG/ML VIAL (J1200) IV PRN (10:20)
[2020-10-27] MEDS ORDERED: NS 1,000 ML IV SCH (10:20)
[2020-10-27] MEDS ORDERED: EPIDURAL/PCA KEYS XX PRN (10:20)
[2020-10-27] MEDS ORDERED: IBUPROFEN 600MG TAB PO PRN (10:25)
[2020-10-27] MEDS ORDERED: METOCLOPRAMIDE INJ 10MG/2ML VIAL (J2765 PER 1) As Ordered ONE (10:35)
[2020-10-27] MEDS ORDERED: METOCLOPRAMIDE INJ 10MG/2ML VIAL (J2765 PER 1) IV PRN (10:40)
--- NOTE | 2020-10-27 12:39 | RO ---
OPERATIVE NOTE DATE OF OPERATION: 10/27/2020 PREOPERATIVE DIAGNOSIS/INDICATION FOR SURGERY: Pain, bleeding and dyspareunia. POSTOPERATIVE DIAGNOSIS: Pain, bleeding, dyspareunia with most likely postoperative adhesions noted. PROCEDURE: Robot-assisted hysterectomy with bilateral salpingectomy. The patient retains her ovaries. SPECIMEN: Uterus with cervix and tubes. SURGEON: Starr Mcgee MD DIRECTOR OF HEALTH EDUCATION: Brooke Rios ANESTHESIA: General endotracheal anesthesia. DESCRIPTION OF PROCEDURE/FINDINGS: Erika was brought to the operating room where sufficient general endotracheal anesthesia was induced and she was prepped, draped and positioned in the usual sterile fashion with the uterine manipulator placed, Zaman with the ability to back-fill placed and attention turned to the abdomen. Transverse semilunar incision was made over the area of her umbilical scar. Sharp and blunt dissection were continued through the subcutaneous tissues to the level of the rectus fascia which was transversely incised, secured with #0 Vicryl retention sutures and peritoneum then entered bluntly under direct visualization. There was evidence of omental adhesion at the umbilicus but we felt that we were able to work around it and we were sure we were in the abdomen and not in the preperitoneal adipose tissue. We then placed the Rahda under direct visualization and started CO2 insufflation. After adequate CO2 insufflation the peritoneal cavity was visualized and as expected there were extensive omental adhesions to the anterior abdominal wall but there was no hernia and there was no significant bleeding in the omentum. We were able to work around these adhesions and then picture the pelvis. Adhesions were primarily along the right side and to the midline and all around the umbilical wound. Some pictures were taken after some of them had been taken down and then pictures as it was taken down. We were able to put two left-sided and one right-sided port in and having taken down some of those adhesions we were able to place the robotic camera and dock the robot for the robotic case. The patient was in Trendelenburg for this to allow the intestines to become well away from the uterus. There were some adhesions primarily over the bladder and the lower uterine segment consistent with her scar and of course scarring of the tubes consistent with her tubal ligation but the ovaries were normal in appearance and other than those omental adhesions that had to be taken down and did not have a lot more adhesions than that and pictures were taken to document. Starting on the left side with the bipolar we carefully dissected the mesentery of the tube away from the ovary. In this 40-year-old we were careful to protect the ovarian blood supply, freed the tube and then the uteroovarian suspensory ligament and then the round ligament on the left and then did the same on the right side, again protecting that uterine vascular supply carefully. We then dissected some adhesions over the lower uterine segment, back-filled the bladder as needed to identify our plane and carefully we had gone through the rounds so we carefully dissected the broad anteriorly and posteriorly and again dropping away that posterior peritoneum as well to get the ureters away from the field of dissection. We then cauterized the uterine vasculature bilaterally and then transected it on the left side and began our colpotomy posteriorly working forward around the left side, above the attachment of the uterosacrals so as to avoid those ureters and to maintain support for the patient who of course is only 40. Then continued that colpotomy working around the uterus and we had already controlled the uterine vasculature and after the colpotomy was completed the uterus was delivered into the vagina. There were some bleeders on the right side so we started our closure of the vaginal cuff with the V-Loc suture on the right, got control of those bleeders, suctioned out the pelvis and confirmed good control. Similarly controlled the angle and uterosacrals on the left and then did running locked V-Loc closure of the vaginal cuff, being sure to incorporate the actual vaginal epithelium in the closure. We had good approximation and hemostasis. At this point the internal work in the pelvis was completed. There was no evidence of injury to the bowel or bladder or ureters. We allowed the CO2 to escape, removed the patient from Trendelenburg, removed her ports and closed the umbilical wound which was a little bit larger because I worked open and used the Radha piggybacked there and closed that with #0 Vicryl retention sutures and for the 8 mm ports and for the skin at the umbilicus we used skin closure of 3-0 Vicryl in subcuticular stitch with good approximation and hemostasis at all wounds. Dry, sterile dressings were applied. The procedure was then ended. ESTIMATED BLOOD LOSS FOR PROCEDURE: 150 mL. FLUID REPLACEMENT: Crystalloid. COMPLICATIONS: None. CONDITION AND DISPOSITION: Erika tolerated the procedure well and was recovering in the recovery room in good condition.
[2020-10-27 13:30] VITALS: BP 115/73
[2020-10-27 14:00] VITALS: BP 111/72
[2020-10-27] MEDS: LR 1,000 ML IV SCH ×2 (14:03→19:25)
[2020-10-27 15:00] VITALS: BP 114/79
[2020-10-27 16:00] VITALS: BP 117/65
[2020-10-27 17:00] VITALS: BP 116/68
[2020-10-27] MEDS ORDERED: MONTELUKAST 10 MG TAB PO SCH (21:00)
[2020-10-27] MEDS ORDERED: hydrOXYzine 25 MG TAB PO SCH (21:00)
[2020-10-27 22:00] VITALS: BP 113/61
[2020-10-28 02:00] VITALS: BP 108/64
[2020-10-28] MEDS: LR 1,000 ML IV SCH ×2 (02:25→10:25)
[2020-10-28 06:00] VITALS: BP 104/63
[2020-10-28] MEDS ORDERED: NORCO, ANEXSIA 5/325MG TABLET (HYDROcodone/ACETAMINOPHEN) PO PRN (06:00)
[2020-10-28 06:01] LABS: HEMATOCRIT 34.3 % (36.0-47.0); HEMOGLOBIN 10.6 g/dl (12.0-15.5); MEAN CORPUSCULAR HEMOGLOBIN 28.5 pg (27.0-33.0); MEAN CORPUSCULAR HGB CONC 30.9 g/dl (32.0-36.5); MEAN CORPUSCULAR VOLUME 92.2 fl (80.0-96.0); PLATELET COUNT, AUTOMATED 335 10^3/uL (150-450); RED BLOOD COUNT 3.72 10^6/uL (4.00-5.40); WHITE BLOOD COUNT 14.2 10^3/uL (4.0-10.0)
[2020-10-28 10:00] VITALS: BP 102/66
[2020-10-28] MEDS ORDERED: IBUP-1022 PO (10:36)
[2020-10-28] MEDS ORDERED: HYDR-3715 PO (10:36)
[2020-10-28] MEDS ORDERED: MONTELUKAST 10 MG TAB PO SCH (21:00)
== END 2020-10-28 12:29 | disposition home or self-care (01) ==
LOC: M SDC 06:04 → M MSPAV 11:40 → M SDC 10-28 12:29
PROVIDERS: ATTEND Obstetrics & Gynecology
DX: N94.10 Unspecified dyspareunia (principal); N93.9 Abnormal uterine and vaginal bleeding, unspecified; R10.2 Pelvic and perineal pain; N72 Inflammatory disease of cervix uteri; F17.210 Nicotine dependence, cigarettes, uncomplicated; Z98.51 Tubal ligation status; Z86.59 Personal history of other mental and behavioral disorders
CPT/HCPCS: 36415; 58571; 85027; 86850; 86900; 86901; 88307; 96374; 96376; J0131; J0690; J1100; J1885; J2250; J2270; J2405; J3010; Q9968

== ENCOUNTER → 2020-12-02 | Outpatient (REF) | payer BC ==
[~2020-12-02] MED LIST changes: +HYDR-3715 PO; +IBUP-1022 PO; -LIDOCAINE 1% MDV 20ML VIAL SQ PRN
[2020-12-02 16:36] LABS: APPEARANCE, URINE HAZY (CLEAR); BACTERIA, URINE AUTO NEGATIVE (NEGATIVE); BILIRUBIN, URINE AUTO NEGATIVE (NEGATIVE); BLOOD, URINE BLOOD NEGATIVE (NEGATIVE); COLOR, URINE YELLOW (YELLOW); GLUCOSE, URINE (UA) AUTO NEGATIVE (NEGATIVE); KETONE, URINE AUTO NEGATIVE (NEGATIVE); LEUKOCYTE ESTERASE, URINE AUTO NEGATIVE (NEGATIVE); MUCUS, URINE SMALL (NEGATIVE); NITRITE, URINE AUTO NEGATIVE (NEGATIVE); PROTEIN, URINE AUTO NEGATIVE (NEGATIVE); RBC, URINE AUTO 0 /HPF (0-3); SPECIFIC GRAVITY URINE AUTO 1.015 (1.002-1.035); SQUAMOUS EPITHELIAL CELL UR AU 4 /HPF (0-6); UROBILINOGEN, URINE AUTO 0.2 mg/dL (0.0-2.0); WBC, URINE AUTO 1 /HPF (0-3)
== END ==
LOC: M LAB REF 16:00
PROVIDERS: ATTEND Obstetrics & Gynecology
DX: N39.0 Urinary tract infection, site not specified (principal)